=== PATIENT | male | born 1955 | race African-American/Black ===

== ENCOUNTER 2017-03-31 12:31 | Outpatient (CLI) | payer OTHER ==
--- NOTE | 2017-03-31 14:52 | RAD ---
PA AND LATERAL CHEST: Date: 03/31/17 INDICATION: History of dyspnea. COMPARISON: Prior single view of the chest dated 10/05/12. FINDINGS: There is stable cardiomegaly. There is increased opacity seen adjacent to the left heart border withi n the region of the lingula which was not present on the prior examination. This is not definitely lo calized on the lateral projection and likely reflects chondrocalcinosis involving the left anterolate ral 6th rib. There is a dual lead AICD overlying the right chest wall. The right lung is clear. There is multilevel spondylosis of the thoracic spine. IMPRESSION: 1. Accentuated density adjacent to the left heart apex on the PA projection only without correlation on the lateral projection, suspicious for chondrocalcinosis of the left anterolateral 6th rib. 2. Stable cardiomegaly with AICD. POS: OSMANI
== END 2017-03-31 12:32 | disposition home or self-care (01) ==
LOC: RAD 12:31
PROVIDERS: ATTEND Internal Medicine Pulmonary Disease
DX: R06.00 Dyspnea, unspecified (principal); I51.7 Cardiomegaly
CPT/HCPCS: 71020

== ENCOUNTER 2017-04-21 19:30 | Outpatient (CLI) | payer OTHER | END 2017-04-21 19:31 | disposition home or self-care (01) | LOC: SLEEPLAB 19:30 | PROVIDERS: ATTEND Internal Medicine Pulmonary Disease | DX: G47.33 Obstructive sleep apnea (adult) (pediatric) (principal); E66.9 Obesity, unspecified; R06.83 Snoring | CPT/HCPCS: 95811 ==

== ENCOUNTER 2017-07-07 16:58 | Observation (INO) | payer OTHER ==
[2017-07-07 18:21] LABS: #Basophils 0.1 thou/uL (0.0-0.2); #Eosinphils 0.2 thou/uL (0.0-0.7); #Lymphocytes 2.7 thou/uL (1.20-3.40); #Monocytes 0.6 thou/uL (0.11-0.59); #Neutrophils 4.1 thou/uL (1.40-6.50); %Basophils 0.7 % (0.0-1.0); %Eosinophils 3.1 % (0.0-10.0); %Lymphocytes 35.6 % (21.0-51.0); %Neutrophils 52.6 % (42.0-75.0); Hemoglobin 15.2 g/dL (14.0-18.0); Mean Corpuscular HGB CONC 32.7 g/dL (32.0-36.0); Mean Corpuscular Hemoglobin 30.9 pg (27.0-31.0); Mean Corpuscular Volume 94.6 fl (80.0-94.0); Mean Platelet Volume 6.1 fL (7.4-10.4); Platelet Count 335 thou/uL (130-400); Red Blood Cell (RBC) Count 4.93 mill/uL (4.70-6.10); White Blood Cell (WBC) Count 7.7 thou/uL (4.8-10.8)
[2017-07-07 18:52] LABS: ALT (SGPT) 16 U/L (8-55); AST (SGOT) 14 U/L (5-34); Albumin 4.4 g/dL (3.5-5.0); Alkaline Phosphatase 61 U/L (40-150); Anion Gap 14 mmol/L (10-20); BUN (Urea Nitrogen) 13 mg/dL (8.4-25.7); Bilirubin, Total 0.4 mg/dL (0.2-1.2); CK (CPK) 145 U/L (30-200); Calc. Creatinine Clearance 0 mL/min (70-130); Calcium 10.2 mg/dL (7.8-10.44); Carbon Dioxide 27 mmol/L (22-29); Chloride 102 mmol/L (98-107); Estimated GFR-MDRD 66; Globulin 4.3 g/dL (2.4-3.5); Glucose 127 mg/dL (70-105); Potassium 3.8 mmol/L (3.5-5.1); Protein, Total 8.7 g/dL (6.0-8.3); Sodium 139 mmol/L (136-145)
[2017-07-07 18:54] LABS: CKMB 2.8 ng/mL (0-6.6); Troponin I 0.026 ng/mL (< 0.028)
[2017-07-07] MEDS ORDERED: hydrALAZINE 25 MG TAB ONE (21:52)
--- NOTE | 2017-07-07 22:38 | RAD ---
RADIOGRAPH CHEST 1 VIEW: DATE: 07/07/17 TIME: 9:30 p.m. HISTORY: 61-year-old male with hypertension and chest pain. FINDINGS: There is no air space density, pulmonary edema, or pneumothorax. The lateral costophrenic angles are sharp. There is a left subclavian AICD. There is no interval change since 03/31/17. IMPRESSION: 1. No acute pulmonary findings. 2. Automatic implantable cardioverter defibrillator. mira [] POS: OSMANI
[2017-07-07 23:57] LABS: Troponin I 0.028 ng/mL (< 0.028)
[2017-07-08] MEDS ORDERED: Furosemide 40 MG TAB PO SCH (00:22)
[2017-07-08] MEDS ORDERED: hydrALAZINE 25 MG TAB PO SCH (00:22)
[2017-07-08] MEDS ORDERED: HYDROcodone/Acetaminophen 10/325 mg Tablet PO PRN (00:22)
[2017-07-08] MEDS ORDERED: hydrALAZINE 20 MG/ML VIAL SLOW IVP PRN (00:22)
[2017-07-08] MEDS ORDERED: NIFEdipine 10 MG CAP PO SCH (00:22)
[2017-07-08] MEDS ORDERED: Ondansetron ODT 4 MG TAB PO PRN (00:22)
[2017-07-08] MEDS ORDERED: HYDROcodone/Acetaminophen 5/325 mg Tablet PO PRN (00:22)
[2017-07-08] MEDS ORDERED: Acetaminophen 325 MG TAB PO PRN (00:22)
[2017-07-08] MEDS ORDERED: Enoxaparin Sodium 40 MG/0.4 ML SYRINGE SC SCH (00:22)
[2017-07-08 01:21] LABS: CKMB 2.6 ng/mL (0-6.6); Troponin I 0.036 ng/mL (< 0.028)
--- NOTE | 2017-07-08 01:45 | HP ---
DATE OF ADMISSION: 07/07/2017 ELIANA OF SERVICE: 2315 hours. PRIMARY CARE PHYSICIAN: Татьяна Huang D.O. PRIMARY PAVING INSPECTOR: Ranjit Jhaveri M.D. PRIMARY CROWN IRONER OPERATOR: Gume Marie M.D. CHIEF COMPLAINT: Elevated blood pressure. HISTORY OF PRESENT ILLNESS: Mr. Abad a 61-year-old -[place] male with history of coronary artery disease with ID in the past, diabetes mellitus type 2, hypertension, and chronic kidney disea se [address] Jhaveri who presents to the emergency department for elevated blood pressure. The patient has had elevated blood pressure for a couple of weeks. As he saw his rivet heater gas, Dr. Dina rodríguez a day or two ago and when he commented that his blood pressure needed to be under better control, medicines were adjusted. He was started on losartan and hydrochlorothiazide was stopped, he was sta rted hydralazine and continued other medications. Today, his blood pressure remained in the 190s to 200s. He went to a local store and had rechecked it was over 200, so he decided to come to the emerg ency department for evaluation. Here, his blood pressure was confirmed. He was given a single dose of 25 mg of hydralazine with abou t a 20 point decrease in his overall blood pressure. This was short lasting and his blood pressure w ent back up. His labs came back fairly normal. Initial set of biomarkers showed a troponin of 0.026 and CK-MB of 2.8. The PATRICIO felt that there was some lateral ST depression and so we were subsequentl y called for admission. On my arrival, the patient had absolutely no chest pain. We talked about plans and plan to keep him overnight for blood pressure control and he was amenable. He denies any nausea or vomiting, no diarr hea or constipation, no fevers or chills, no cough or sputum production. He states he has been compl iant with his current medication regimen. PAST MEDICAL HISTORY: 1. Coronary artery disease. 2. History of myocardial infarction in the past. 3. Diabetes mellitus type 2. 4. Hypertension. 5. Chronic kidney disease 3. PAST SURGICAL HISTORY: 1. PTCA with PCI and stent in the past. 2. AICD placement. I do not know what his last ejection fraction was. HOME MEDICATIONS: 1. Coreg 25 mg p.o. b.i.d. 2. Glipizide 10 mg p.o. b.i.d. 3. Lasix 20 mg daily. 4. Metformin 1000 mg p.o. b.i.d. These are based upon labels he keeps in his wallet and also he is on hydralazine, he takes 25 mg p.o. t.i.d. and takes losartan 25 mg p.o. t.i.d. as well. Typically i t was started as a once a day medicine. ALLERGIES: NKDA. FAMILY HISTORY: Negative for clotting or bleeding disorder. No immune dysfunction. It is significa nt for hypertension, diabetes or heart problems. SOCIAL HISTORY: Significant for weekly social alcohol at the tone of 1-2 glasses. He currently smok es about 1/4 pack per day of cigarettes, but on average smoked about 1.5 pack per day for about 60 ye ars. Denies any IV drug use. REVIEW OF SYSTEMS: A 10-point review of systems was performed. It is negative for all systems excep t as stated as per HPI. PHYSICAL EXAMINATION: VITAL SIGNS: He is afebrile, temperature is 97.8, pulse 79, blood pressure 198/105, respiratory rate 12, satting 96% to 97% on room air. GENERAL: He is awake. He is alert. He is oriented x3. He is a well-developed, well-nourished, old er -[place] male. He appears to be in no acute distress. HEENT: Normocephalic and atraumatic. His pupils equal, round, reactive bilaterally, mucous membrane s are moist. There are no visible lesions. He has no thrush. NECK: Supple, with no lymphadenopathy, no JVD or thyromegaly. Normal carotid upstroke. I do not ap preciate bruits. LUNGS: Clear. He has good air movement. Symmetrical chest excursion. No wheezing, no rales, no rh onchi. CARDIOVASCULAR: He has a normal S1 and S2. He does have an S4, but no S3. I do not appreciate any murmurs. PMI is slightly enlarged and laterally displaced. ABDOMEN: Slightly obese. It is nontender and nondistended. Normoactive bowel sounds present in all 4 quadrants. He has no rebound, no rigidity and no guarding. EXTREMITIES: Showed no cyanosis, no clubbing with trace pedal edema. He has got a 2+ dorsalis pedis and posterior tibial artery pulses. SKIN: Warm, moist, and well perfused. He has no rashes or lesions. MUSCULOSKELETAL: Shows large joints to be uninflamed. He has good range of motion and no palpable e ffusions. NEUROLOGIC: Cranial nerves II-XII are grossly intact. He has normal speech pattern, he has a 5/5 st rength in all 4 of his extremities, he has no focal deficits. LABORATORY EVALUATION: Sodium 139, potassium 3.8, chloride 102, bicarbonate 27, BUN 13, creatinine 1 .33, last we had here was 05/28/2017 with a creatinine of 1.88 and in 02/2017 it was 1.41. He is act ually as good as he has been in the last couple of years. Glucose 127 and calcium was 10.2. Liver f unction is completely within normal limits. CBC showed a white count of 7.7, hemoglobin 15.2, hemato crit of 46.6, and platelet count is 335,000. Biomarkers showed a BNP of 240.8, CK-MB of 2.8 and trop onin I 0.026. EKG showed normal J point. He has inverted T waves likely repolarization changes. He has got old Q- waves present in the inferior lateral leads. EKG largely appears unchanged from previous. ASSESSMENT AND PLAN: 1. Hypertensive urgency. The patient does have elevated blood pressure. He has no end organ effect s, no chest pain, no change in mental status, just has accelerated hypertension. We will continue hi s Coreg 25 b.i.d., we will continue his Lasix, but increased to 40 mg daily give a dose now. We will continue him on hydralazine, but increased to 50 mg p.o. t.i.d. with a dose now and we will continue losartan 100 mg p.o. daily. Start him on nifedipine XR 60 mg daily, we will give him a 20 mg dose o f regular now that should wear off before his next dose is due and we will start him on Imdur 60 mg d aily. In the meantime, we will continue him on nitro paste 1 inch to chest wall, changed to every 8 hours until his blood pressure under better control. P.r.n. hydralazine available if it gets above 1 80 daily systolic again. 2. Chronic kidney disease stage 3. Creatinine 1.33, which is actually the best has been some time. We will notify Dr. Jhaveri of his admission. 3. History of coronary artery disease/myocardial infraction. He has no chest pain, normal biomarker s. We will get serial cardiac biomarkers and continue with medicines as above. We will notify Dr. Aura kulkarni of his admission. 4. Diabetes mellitus type 2 on metformin. We will check hemoglobin A1c in the morning and sliding s pat insulin as needed. The patient was placed in observation, watch him overnight. We will get a 2D echocardiogram and he h as not had one here in some time and likely does have some hypertrophic cardiomyopathy and diastolic dysfunction.
[2017-07-08 04:33] LABS: #Eosinphils 0.3 thou/uL (0.0-0.7); #Lymphocytes 2.5 thou/uL (1.20-3.40); #Monocytes 0.6 thou/uL (0.11-0.59); #Neutrophils 3.8 thou/uL (1.40-6.50); %Basophils 0.7 % (0.0-1.0); %Eosinophils 3.7 % (0.0-10.0); %Lymphocytes 34.8 % (21.0-51.0); %Monocytes 8.7 % (0.0-10.0); %Neutrophils 52.2 % (42.0-75.0); Hemoglobin 13.5 g/dL (14.0-18.0); Mean Corpuscular HGB CONC 33.7 g/dL (32.0-36.0); Mean Corpuscular Hemoglobin 31.5 pg (27.0-31.0); Mean Corpuscular Volume 93.6 fl (80.0-94.0); Mean Platelet Volume 6.4 fL (7.4-10.4); Platelet Count 279 thou/uL (130-400); RBC Distribution Width 11.8 % (11.5-14.5); Red Blood Cell (RBC) Count 4.29 mill/uL (4.70-6.10); White Blood Cell (WBC) Count 7.3 thou/uL (4.8-10.8)
[2017-07-08 04:59] LABS: Anion Gap 10 mmol/L (10-20); BUN (Urea Nitrogen) 12 mg/dL (8.4-25.7); Calc. Creatinine Clearance 80 mL/min (70-130); Calcium 9.6 mg/dL (7.8-10.44); Carbon Dioxide 28 mmol/L (22-29); Chloride 102 mmol/L (98-107); Estimated GFR-MDRD 65; Glucose 257 mg/dL (70-105); Magnesium 1.5 mg/dL (1.6-2.6); Potassium 3.3 mmol/L (3.5-5.1); Sodium 137 mmol/L (136-145)
[2017-07-08] MEDS: Nitroglycerin 2% Ointment 1 INCH/1 GM Packet TOP SCH ×3 (06:29→20:22)
--- NOTE | 2017-07-08 08:56 | PDOC.PN ---
- Subjective Encounter Start Date: 07/08/17 Encounter Start Time: 08:55 Subjective: seen and examined no new complaint - Objective Resuscitation Status: Resuscitation Status FULL:Full Resuscitation Vital Signs & Weight: Vital Signs (12 hours) Temp Pulse Resp BP BP Pulse Ox 07/08/17 08:05 98.4 F 71 18 154/88 H 97 07/08/17 02:10 89 18 145/100 H 07/08/17 01:08 186/89 H 07/08/17 00:39 207/100 H 07/08/17 00:08 98.3 F 76 18 219/104 H 95 Weight Weight 217 lb 3.2 oz Result Diagrams: 07/08/17 03:49 07/08/17 03:49 Phys Exam - Physical Examination Constitutional: NAD HEENT: PERRLA, moist MMs, sclera anicteric, TM's clear Neck: no nodes, no JVD, supple, full ROM Respiratory: no wheezing, no rales, no rhonchi, clear to auscultation bilateral Cardiovascular: RRR, no significant murmur, no rub Gastrointestinal: soft, non-tender, no distention, positive bowel sounds Musculoskeletal: no edema, pulses present Dx/Plan (1) Hypertensive urgency Code(s): I16.0 - HYPERTENSIVE URGENCY Status: Acute (2) CKD (chronic kidney disease) stage 3, GFR 30-59 ml/min Code(s): N18.3 - CHRONIC KIDNEY DISEASE, STAGE 3 (MODERATE) Status: Acute (3) Diabetes 1.5, managed as type 2 Code(s): E10.9 - TYPE 1 DIABETES MELLITUS WITHOUT COMPLICATIONS Status: Acute - Plan Adjusting Bp meds to optimise hemodynamics -: Dispo planning * .
[2017-07-08] MEDS: hydrALAZINE 25 MG TAB PO SCH ×3 (09:11→20:22)
[2017-07-08] MEDS: Famotidine 20 MG TAB PO SCH ×2 (09:12→20:22)
[2017-07-08] MEDS: Furosemide 40 MG TAB PO SCH (09:12)
[2017-07-08] MEDS: NIFEdipine XL 60 MG TAB PO SCH (09:12)
[2017-07-08] MEDS: Carvedilol 25 MG TAB PO SCH ×2 (09:13→16:53)
[2017-07-08] MEDS: Losartan 25 MG TAB PO SCH (09:13)
[2017-07-08 09:57] LABS: CKMB 2.1 ng/mL (0-6.6); Troponin I 0.021 ng/mL (< 0.028)
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
[2017-07-08] MEDS ORDERED: Insulin Regular 300 UNITS/3 ML VIAL SC PRN ×2 (21:13→21:14)
[2017-07-08] MEDS ORDERED: Dextrose 5% in Water 1,000 ML IV PRN (21:13)
[2017-07-08] MEDS ORDERED: Dextrose 50% Abboject 50 ML SYRINGE IVP PRN (21:13)
[2017-07-08] MEDS ORDERED: metFORMIN 500 MG TAB PO SCH (21:15)
--- NOTE | 2017-07-08 21:29 | CON ---
DATE OF CONSULTATION: 07/08/2017 NEPHROLOGY CONSULT CONSULTING PHYSICIAN: Dr. Gonsalves. REASON FOR CONSULT: Hypertension. REASON FOR ADMISSION: Headache. HISTORY OF PRESENT ILLNESS: A 61-year-old male with history of coronary artery disease, diabetes, CK D, hypertension came to the hospital with headache and was found to have high blood pressure and Neph rology is consulted. Patient was recently started on medication by Dr. Jhaveri. No fever or chills. N o nausea, vomiting, no chest pain. PAST MEDICAL HISTORY: Positive for coronary artery disease, myocardial infarction, type 2 diabetes, hypertension, CKD as above. SOCIAL HISTORY: PTCA, AICD placement. HOME MEDICATIONS: Coreg, glipizide, Lasix, metformin. ALLERGIES: No known drug allergies. FAMILY HISTORY: No history of kidney disease. REVIEW OF SYSTEMS: The following complete review of systems was negative, unless otherwise mentioned in the HPI or below: Constitutional: Weight loss or gain, ability to conduct usual activities. Sk in: Rash, itching. Eyes: Double vision, pain. ENT/Mouth: Nose bleeding, neck stiffness, pain, te nderness. Cardiovascular: Palpitations, dyspnea on exertion, orthopnea. Respiratory: Shortness of breath, wheezing, cough, hemoptysis, fever, or night sweats. Gastrointestinal: Poor appetite, abdo eryn pain, heartburn, nausea, vomiting, constipation, or diarrhea. Genitourinary: Urgency, frequen cy, dysuria, nocturia. Musculoskeletal: Pain, swelling. Neurologic/Psychiatric: Anxiety, depressi on. Allergy/Immunologic: Skin rash, bleeding tendency. SOCIAL HISTORY: He currently smokes. No illicit drug abuse and also social alcohol drinker. PHYSICAL EXAMINATION: GENERAL: Show well-built male in no apparent distress. VITAL SIGNS: Temperature 98.6, pulse 77, respirations 16, blood pressure 165/73. HEENT: Atraumatic, normocephalic. Oral mucosa is moist. NECK: Supple, no masses. CARDIOVASCULAR: S1, S2 heard. Rate and rhythm regular. RESPIRATORY: Clear. ABDOMEN: Soft. MUSCULOSKELETAL: 1+ edema. DERMATOLOGIC: No rash. NEUROLOGIC: Alert, awake. PSYCHIATRIC DATA: Normal mood and affect. LABORATORY: Hemoglobin is 13.5. Potassium 3.3, BUN is 12, creatinine is 1.36. ASSESSMENT AND PLAN: 1. Acute kidney injury on chronic kidney disease, most likely secondary to hypertensive urgency. I agree with current medical management. 2. Hypertensive urgency with history of essential hypertension, we will up-titrate medication as nee ded. 3. Edema on Lasix. Monitor potassium. 4. We will continue current medication. We will up-titrate medication as needed, currently on losar matta 100 mg p.o. daily and nifedipine. 5. Anemia, mild. 6. Obesity. Advised to have weight loss. 7. We will monitor blood pressure closely. We will follow.
[2017-07-09] MEDS: Nitroglycerin 2% Ointment 1 INCH/1 GM Packet TOP SCH (05:46)
[2017-07-09 07:34] VITALS: TEMP 98.7
[2017-07-09] MEDS: NIFEdipine XL 60 MG TAB PO SCH (07:53)
[2017-07-09] MEDS: hydrALAZINE 25 MG TAB PO SCH (07:54)
[2017-07-09] MEDS: Famotidine 20 MG TAB PO SCH (07:55)
[2017-07-09] MEDS: Carvedilol 25 MG TAB PO SCH (07:55)
[2017-07-09] MEDS: Furosemide 40 MG TAB PO SCH (07:55)
[2017-07-09] MEDS: Losartan 25 MG TAB PO SCH (07:55)
[2017-07-09] MEDS ORDERED: metFORMIN 500 MG TAB PO SCH (08:00)
[2017-07-09 10:27] VITALS: BP 134/81
[2017-07-09] MEDS ORDERED: Potassium Chloride 20 MEQ TAB PO SCH (11:30)
--- NOTE | 2017-07-09 19:35 | PRG ---
DATE OF SERVICE: 07/09/2017 SUBJECTIVE: Patient was seen and examined at bedside and overnight events noted. Patient denies any shortness of breath or chest pain or palpitation. No history of nausea or vomitin g or diarrhea or fever or chills or cramps. OBJECTIVE: GENERAL: This is a well-built male, in no apparent distress. VITAL SIGNS: Temperature 98.7, pulse 70, respiratory rate 19, blood pressure 134/81. HEENT: Atraumatic, normocephalic. Oral mucosa is moist NECK: Supple. CARDIOVASCULAR: S1 and S2 heard. Rate and rhythm regular. RESPIRATORY: Clear to auscultation. GASTROINTESTINAL: Abdomen is soft. MUSCULOSKELETAL: No tenderness. No edema. DERMATOLOGIC: No skin rash. NEUROLOGIC: Alert and awake and oriented X3, No focal neurologic deficits. Moving all the extremitie s. PSYCHIATRIC: Mood and affect normal. LABORATORY DATA: Not done today. ASSESSMENT AND PLAN: 1. Acute kidney injury, stable. 2. Chronic kidney disease stage 3. 3. Hypertension. Blood pressure is better. 4. Edema, controlled. 5. Anemia. 6. Obesity. Okay to discharge home. Follow up with Dr. Jhaveri in 1 week.
--- NOTE | 2017-07-10 08:07 | DIS ---
For details of the history and physical and for the consult notes, please refer to dictations on [address]. SUMMARY: A 61-year-old gentleman with a history of hypertension and CKD III, who presented here with severely elevated blood pressure with systolic above 200. The patient was admitted and consulted up on by his box tender as well as manager [employer]. Decision was taken to adjust this patient's antihype rtensive medication with improvement in the hemodynamics. PHYSICAL EXAMINATION: VITAL SIGNS: On the day of discharge, the patient was noted with the following vital signs: Afebril e, temperature 98.7, pulse 78, respiratory rate of 19, blood pressure 134/81, O2 sat 97%. HEENT: Unremarkable. The rest of the system examination is unremarkable. The patient was subsequently discharged home on the following medications: Eliquis 5 mg p.o. b.i.d., Lipitor 40 mg p.o. at bedtime, Coreg 25 mg p.o. b.i.d., digoxin mg 1 tablet p.o. daily, furose mide 20 mg p.o. daily, glipizide 10 mg p.o. daily, hydralazine 50 mg p.o. t.i.d., losartan 100 mg p.o . daily, metformin 1000 mg p.o. b.i.d., Procardia XL 60 mg p.o. daily. DISCHARGE INSTRUCTIONS: 1. The patient is to follow up with the primary care physician. 2. The patient is to re-present here in case of any relapse or deterioration in clinical condition. Total time spent including [id number] encounter is 31 minutes.
== END 2017-07-09 13:41 | disposition home or self-care (01) ==
LOC: ERS 16:58 → 2SW 07-08 00:02
PROVIDERS: ADMIT Internal Medicine Infectious Disease; ATTEND Internal Medicine Infectious Disease
DX: I16.0 Hypertensive urgency (principal); I12.9 Hypertensive chronic kidney disease with stage 1 through stage 4 chronic kidney disease, or unspecified chronic kidney disease; E11.22 Type 2 diabetes mellitus with diabetic chronic kidney disease; N18.3 Chronic kidney disease, stage 3 (moderate); N17.9 Acute kidney failure, unspecified; I16.9 Hypertensive crisis, unspecified; D63.1 Anemia in chronic kidney disease; I25.10 Atherosclerotic heart disease of native coronary artery without angina pectoris; I25.2 Old myocardial infarction; F17.210 Nicotine dependence, cigarettes, uncomplicated; E66.9 Obesity, unspecified; Z68.34 Body mass index [BMI] 34.0-34.9, adult; E78.00 Pure hypercholesterolemia, unspecified; G47.33 Obstructive sleep apnea (adult) (pediatric); Z95.5 Presence of coronary angioplasty implant and graft; Z95.0 Presence of cardiac pacemaker; Z79.01 Long term (current) use of anticoagulants; Z79.84 Long term (current) use of oral hypoglycemic drugs; Z79.899 Other long term (current) drug therapy
CPT/HCPCS: 36415; 36416; 71045; 80048; 80053; 82553; 83735; 83880; 84484; 85025; 93005; 93306; 96372; G0378; J1650

== ENCOUNTER 2017-08-18 19:42 | Emergency (ER) | payer OTHER | END 2017-08-18 22:26 | disposition home or self-care (01) | LOC: ERS 19:42 | DX: I10 Essential (primary) hypertension (principal); I25.10 Atherosclerotic heart disease of native coronary artery without angina pectoris; E11.9 Type 2 diabetes mellitus without complications; F17.210 Nicotine dependence, cigarettes, uncomplicated; I25.2 Old myocardial infarction; Z79.899 Other long term (current) drug therapy; Z79.84 Long term (current) use of oral hypoglycemic drugs; Z71.6 Tobacco abuse counseling | CPT/HCPCS: 99406 ==

== ENCOUNTER 2017-08-23 23:38 | Emergency (ER) | payer OTHER ==
[2017-08-24] MEDS ORDERED: Nitroglycerin 0.4 MG TAB (25 Tab Bottle) ONE (00:25)
== END 2017-08-24 01:45 | disposition home or self-care (01) ==
LOC: ERS 23:38
DX: I10 Essential (primary) hypertension (principal); I25.10 Atherosclerotic heart disease of native coronary artery without angina pectoris; I25.2 Old myocardial infarction; E11.9 Type 2 diabetes mellitus without complications; F17.210 Nicotine dependence, cigarettes, uncomplicated; Z71.6 Tobacco abuse counseling; Z79.84 Long term (current) use of oral hypoglycemic drugs; Z79.899 Other long term (current) drug therapy

== ENCOUNTER 2017-08-24 17:08 | Emergency (ER) | payer OTHER ==
[2017-08-24 18:27] LABS: #Eosinphils 0.3 thou/uL (0.0-0.7); #Lymphocytes 1.9 thou/uL (1.20-3.40); #Monocytes 0.8 thou/uL (0.11-0.59); #Neutrophils 3.6 thou/uL (1.40-6.50); %Basophils 0.7 % (0.0-1.0); %Eosinophils 4.1 % (0.0-10.0); %Lymphocytes 28.4 % (21.0-51.0); %Neutrophils 54.8 % (42.0-75.0); Hemoglobin 12.7 g/dL (14.0-18.0); Mean Corpuscular HGB CONC 33.1 g/dL (32.0-36.0); Mean Corpuscular Hemoglobin 31.2 pg (27.0-31.0); Mean Corpuscular Volume 94.2 fl (80.0-94.0); Mean Platelet Volume 6.4 fL (7.4-10.4); Platelet Count 302 thou/uL (130-400); RBC Distribution Width 12.1 % (11.5-14.5); Red Blood Cell (RBC) Count 4.07 mill/uL (4.70-6.10); White Blood Cell (WBC) Count 6.6 thou/uL (4.8-10.8)
[2017-08-24] MEDS ORDERED: Nitroglycerin 2% Ointment 1 INCH/1 GM Packet ONE (18:41)
[2017-08-24 18:47] LABS: Anion Gap 13 mmol/L (10-20); BUN (Urea Nitrogen) 15 mg/dL (8.4-25.7); Calc. Creatinine Clearance 0 mL/min (70-130); Calcium 9.5 mg/dL (7.8-10.44); Carbon Dioxide 24 mmol/L (22-29); Chloride 106 mmol/L (98-107); Estimated GFR-MDRD 76; Glucose 181 mg/dL (70-105); Potassium 3.6 mmol/L (3.5-5.1); Sodium 139 mmol/L (136-145)
[2017-08-24 18:54] LABS: CKMB 1.4 ng/mL (0-6.6); Troponin I 0.023 ng/mL (< 0.028)
== END 2017-08-24 20:44 | disposition home or self-care (01) ==
LOC: ERS 17:08
DX: I10 Essential (primary) hypertension (principal); I25.2 Old myocardial infarction; E11.9 Type 2 diabetes mellitus without complications; F17.210 Nicotine dependence, cigarettes, uncomplicated
CPT/HCPCS: 80048; 82553; 84484; 85025; 93005; 99406

== ENCOUNTER 2017-10-31 02:33 | Inpatient (IN) | payer OTHER ==
[2017-10-31 03:42] LABS: #Eosinphils 0.1 thou/uL (0.0-0.7); #Lymphocytes 1.9 thou/uL (1.20-3.40); #Monocytes 1.3 thou/uL (0.11-0.59); #Neutrophils 7.3 thou/uL (1.40-6.50); %Basophils 0.4 % (0.0-1.0); %Eosinophils 1.4 % (0.0-10.0); %Lymphocytes 18.2 % (21.0-51.0); %Monocytes 11.9 % (0.0-10.0); %Neutrophils 68.2 % (42.0-75.0); Hemoglobin 12.8 g/dL (14.0-18.0); Mean Corpuscular HGB CONC 32.1 g/dL (32.0-36.0); Mean Corpuscular Hemoglobin 30.4 pg (27.0-31.0); Mean Corpuscular Volume 94.8 fL (78.0-98.0); Mean Platelet Volume 6.4 fL (7.4-10.4); Platelet Count 305 thou/uL (130-400); RBC Distribution Width 12.2 % (11.5-14.5); Red Blood Cell (RBC) Count 4.22 mill/uL (4.70-6.10); White Blood Cell (WBC) Count 10.6 thou/uL (4.8-10.8)
[2017-10-31] MEDS ORDERED: Nitroglycerin 2% Ointment 1 INCH/1 GM Packet ONE (04:04)
[2017-10-31] MEDS ORDERED: Furosemide 40 MG/4 ML VIAL ONE (04:04)
[2017-10-31] MEDS ORDERED: Nitroglycerin 0.4 MG TAB (25 Tab Bottle) ONE (04:04)
[2017-10-31 04:11] LABS: ALT (SGPT) 17 U/L (8-55); AST (SGOT) 13 U/L (5-34); Albumin 3.7 g/dL (3.4-4.8); Alkaline Phosphatase 54 U/L (40-150); Anion Gap 11 mmol/L (10-20); BUN (Urea Nitrogen) 15 mg/dL (8.4-25.7); Bilirubin, Total 0.5 mg/dL (0.2-1.2); CK (CPK) 93 U/L (30-200); Calc. Creatinine Clearance 0 mL/min (70-130); Calcium 9.4 mg/dL (7.8-10.44); Carbon Dioxide 27 mmol/L (23-31); Chloride 104 mmol/L (98-107); Estimated GFR-MDRD 67; Globulin 3.7 g/dL (2.4-3.5); Glucose 179 mg/dL (80-115); Potassium 4.5 mmol/L (3.5-5.1); Protein, Total 7.4 g/dL (5.8-8.1); Sodium 137 mmol/L (136-145)
[2017-10-31 04:14] LABS: CKMB 1.8 ng/mL (0-6.6); Troponin I Less than 0.010 ng/mL (< 0.028)
[2017-10-31] MEDS ORDERED: Morphine 4 MG/ML VIAL ONE (04:39)
[2017-10-31 06:51] LABS: Troponin I 0.017 ng/mL (< 0.028)
[2017-10-31] MEDS ORDERED: Loperamide HCl 2 MG CAP PO PRN (07:48)
[2017-10-31] MEDS ORDERED: Eucerin (Mineral Oil/Petrolatum,White) 30 gm Jar TOP PRN (07:48)
[2017-10-31] MEDS ORDERED: Diabetic Tussin 200 MG/10 ML UDCUP PO PRN (07:48)
[2017-10-31] MEDS ORDERED: Mag-Al 1200 mg/1200 mg/30 ML UDCUP PO PRN (07:48)
[2017-10-31] MEDS ORDERED: Ondansetron HCl/PF 4 MG/2 ML Vial IVP PRN (07:48)
[2017-10-31] MEDS ORDERED: Loratadine 10 MG TAB PO PRN (07:48)
[2017-10-31] MEDS ORDERED: Milk Of Magnesia 30 ML UDCUP PO PRN (07:48)
[2017-10-31] MEDS ORDERED: HumaLOG 300 UNITS/3 ML VIAL SC PRN (07:48)
[2017-10-31] MEDS ORDERED: Nitroglycerin 0.4 MG TAB (25 Tab Bottle) SL PRN (07:48)
[2017-10-31] MEDS ORDERED: Dextrose 5% in Water 1,000 ML IV PRN (07:48)
[2017-10-31] MEDS ORDERED: Ondansetron ODT 4 MG TAB PO PRN (07:48)
[2017-10-31] MEDS ORDERED: Artificial Tears 18 DROP/0.9 ML EA EYE PRN (07:48)
[2017-10-31] MEDS ORDERED: Dextrose 50% Abboject 50 ML SYRINGE SLOW IVP PRN (07:48)
[2017-10-31] MEDS ORDERED: Zolpidem Tartrate 5 MG TAB PO PRN (07:48)
[2017-10-31] MEDS ORDERED: Sodium Chloride 0.65% Nasal 44 ML BOT EA NARE PRN (07:48)
[2017-10-31] MEDS ORDERED: Chloraseptic Spray 180 ml Bottle PO PRN (07:48)
[2017-10-31] MEDS ORDERED: Senokot 8.6 MG TAB PO PRN (07:48)
[2017-10-31] MEDS ORDERED: Acetaminophen 325 MG TAB PO PRN (07:48)
[2017-10-31] MEDS: hydrALAZINE 20 MG/ML VIAL SLOW IVP PRN ×2 (09:08→18:05)
[2017-10-31] MEDS: HumaLOG 300 UNITS/3 ML VIAL SC PRN ×3 (09:09→18:05)
[2017-10-31 10:00] LABS: Troponin I 0.012 ng/mL (< 0.028)
--- NOTE | 2017-10-31 10:14 | RAD ---
PORTABLE CHEST: Date: 10/31/17 PROVIDED CLINICAL HISTORY: Shortness of breath. FINDINGS: Comparison with 07/07/17. Cardiac and mediastinal silhouette is unchanged in appearance. Left subclavian cardiac pacing devices are demonstrated and similar in position. Air space disease in the left lower lung zone is seen. No pleural fluid or pneumothorax apparent. IMPRESSION: Left lower lung zone air space disease. Correlate with concerns for pneumonia. Follow-up recommended. POS: OSMANI
[2017-10-31 11:05] VITALS: BMI 34.3
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
[2017-10-31 12:32] LABS: Troponin I 0.018 ng/mL (< 0.028)
[2017-10-31] MEDS: Nitroglycerin 2% Ointment 1 INCH/1 GM Packet TOP SCH ×2 (14:25→23:51)
[2017-10-31] MEDS: Furosemide 40 MG/4 ML VIAL SLOW IVP SCH (14:25)
[2017-10-31 16:14] LABS: Troponin I 0.015 ng/mL (< 0.028)
[2017-10-31] MEDS: glipiZIDE 10 MG TAB PO SCH (20:17)
[2017-10-31] MEDS: Carvedilol 25 MG TAB PO SCH (20:17)
[2017-10-31] MEDS: hydrALAZINE 25 MG TAB PO SCH (20:17)
[2017-10-31] MEDS: Apixaban 5 MG TAB PO SCH (20:17)
[2017-10-31] MEDS: cloNIDine 0.1 MG TAB PO SCH (20:18)
[2017-10-31] MEDS: Atorvastatin Calcium 40 MG TAB PO SCH (20:18)
[2017-11-01] MEDS: Furosemide 40 MG/4 ML VIAL SLOW IVP SCH ×2 (05:18→16:36)
[2017-11-01] MEDS: HYDROcodone/Acetaminophen 5/325 mg Tablet PO PRN ×2 (05:18→21:31)
[2017-11-01] MEDS: Nitroglycerin 2% Ointment 1 INCH/1 GM Packet TOP SCH ×3 (05:19→21:33)
[2017-11-01 05:51] LABS: #Eosinphils 0.2 thou/uL (0.0-0.7); #Lymphocytes 2.1 thou/uL (1.20-3.40); #Monocytes 1.1 thou/uL (0.11-0.59); #Neutrophils 5.4 thou/uL (1.40-6.50); %Basophils 0.2 % (0.0-1.0); %Eosinophils 1.8 % (0.0-10.0); %Lymphocytes 23.7 % (21.0-51.0); %Monocytes 13.1 % (0.0-10.0); %Neutrophils 61.2 % (42.0-75.0); Hemoglobin 12.7 g/dL (14.0-18.0); Mean Corpuscular HGB CONC 33.4 g/dL (32.0-36.0); Mean Corpuscular Hemoglobin 31.3 pg (27.0-31.0); Mean Corpuscular Volume 93.7 fL (78.0-98.0); Mean Platelet Volume 6.4 fL (7.4-10.4); Platelet Count 277 thou/uL (130-400); Red Blood Cell (RBC) Count 4.07 mill/uL (4.70-6.10); White Blood Cell (WBC) Count 8.7 thou/uL (4.8-10.8)
[2017-11-01 06:01] LABS: Anion Gap 11 mmol/L (10-20); BUN (Urea Nitrogen) 14 mg/dL (8.4-25.7); Calc. Creatinine Clearance 85 mL/min (70-130); Calcium 9.3 mg/dL (7.8-10.44); Carbon Dioxide 27 mmol/L (23-31); Chloride 104 mmol/L (98-107); Estimated GFR-MDRD 74; Glucose 162 mg/dL (80-115); Magnesium 1.8 mg/dL (1.6-2.6); Potassium 3.5 mmol/L (3.5-5.1); Sodium 138 mmol/L (136-145); Uric Acid 5.5 mg/dL (3.5-7.2)
[2017-11-01] MEDS ORDERED: Losartan 25 MG TAB PO SCH (09:00)
[2017-11-01] MEDS: cloNIDine 0.1 MG TAB PO SCH ×2 (09:38→21:31)
[2017-11-01] MEDS: hydrALAZINE 25 MG TAB PO SCH ×3 (09:39→21:30)
[2017-11-01] MEDS: Apixaban 5 MG TAB PO SCH ×2 (09:39→21:31)
[2017-11-01] MEDS: Carvedilol 25 MG TAB PO SCH ×2 (09:39→21:31)
[2017-11-01] MEDS: metFORMIN 500 MG TAB PO SCH ×2 (09:39→16:36)
[2017-11-01] MEDS: Digoxin 0.125 MG TAB PO SCH (09:39)
[2017-11-01] MEDS: glipiZIDE 10 MG TAB PO SCH ×2 (09:40→21:30)
--- NOTE | 2017-11-01 11:15 | PDOC.PN ---
- Subjective Encounter Start Date: 11/01/17 Encounter Start Time: 09:10 -: old records requested/rev Patient seen and examined. No new complaints. No overnight events, feels better today - Objective Resuscitation Status: Resuscitation Status FULL:Full Resuscitation MAR Reviewed: Yes Vital Signs & Weight: Vital Signs (12 hours) Temp Pulse Pulse Pulse Resp BP BP 11/01/17 09:39 74 11/01/17 09:38 179/98 H 11/01/17 09:30 78 74 197/96 H 11/01/17 08:25 97.7 F 74 20 11/01/17 05:15 98.4 F 80 16 10/31/17 23:50 98.4 F 64 16 BP BP Pulse Ox Pulse Ox Pulse Ox 11/01/17 09:39 11/01/17 09:38 11/01/17 09:30 204/95 H 100 97 11/01/17 08:25 179/98 H 97 11/01/17 05:15 173/87 H 93 L 10/31/17 23:50 158/74 H 96 Weight Weight 207 lb 1 oz I&O: 10/31/17 11/01/17 11/02/17 06:59 06:59 06:59 Intake Total 858 Output Total 4725 Balance -3867 Result Diagrams: 11/01/17 05:13 11/01/17 05:13 Additional Labs: Accuchecks 11/01/17 10/31/17 10/31/17 10:46 20:56 16:45 POC Glucose 190 H 197 H 169 H 10/31/17 10:57 POC Glucose 161 H EKG Reviewed by me: Yes Phys Exam - Physical Examination Constitutional: NAD HEENT: PERRLA, moist MMs, sclera anicteric Neck: no JVD, supple Respiratory: no wheezing, no rhonchi few basal rales+ Cardiovascular: RRR, no significant murmur, no rub Gastrointestinal: soft, non-tender, no distention, positive bowel sounds obesity+ Musculoskeletal: pulses present, edema present trace edema Neurological: non-focal, normal sensation, moves all 4 limbs Psychiatric: normal affect, A&O x 3 Skin: no rash, normal turgor Dx/Plan (1) Acute on chronic systolic ACC/AHA stage C congestive heart failure Code(s): I50.23 - ACUTE ON CHRONIC SYSTOLIC (CONGESTIVE) HEART FAILURE Status : Acute (2) Hypertensive urgency Code(s): I16.0 - HYPERTENSIVE URGENCY Status: Acute (3) CAD (coronary artery disease) Code(s): I25.10 - ATHSCL HEART DISEASE OF [place] CORONARY ARTERY W/O ANG PCTRS Status: Chronic (4) Chronic anticoagulation Code(s): Z79.01 - RN REHABILITATION (CURRENT) USE OF ANTICOAGULANTS Status: Chronic (5) Diabetes type 2, controlled Code(s): E11.9 - TYPE 2 DIABETES MELLITUS WITHOUT COMPLICATIONS Status: Chronic (6) Dyslipidemia Code(s): E78.5 - HYPERLIPIDEMIA, UNSPECIFIED Status: Chronic (7) Obesity (BMI 30.0-34.9) Code(s): E66.9 - OBESITY, UNSPECIFIED Status: Chronic (8) Tobacco abuse Code(s): Z72.0 - TOBACCO USE Status: Chronic - Plan cont current plan of care, plan discussed w/ family * medication reviewed as below * symptomatic treatment * continue one more day lasix * expecting discharge tomorrow * heart failure education given. Review of Systems - Review of Systems Eyes: negative: Pain, Vision Change, Conjunctivae Inflammation, Eyelid Inflammation, Redness, Other ENT: negative: Ear Pain, Ear Discharge, Nose Pain, Nose Discharge, Nose Congestion, Mouth Pain, Mouth Swelling, Throat Pain, Throat Swelling, Other Respiratory: negative: Cough, Dry, Shortness of Breath, Hemoptysis, SOB with Excertion, Pleuritic Pain, Sputum, Wheezing Cardiovascular: negative: chest pain, palpitations, orthopnea, paroxysmal nocturnal dyspnea, edema, light headedness, other Gastrointestinal: negative: Nausea, Vomiting, Abdominal Pain, Diarrhea, Constipation, Melena, Hematochezia, Other Genitourinary: negative: Dysuria, Frequency, Incontinence, Hematuria, Retention , Other Musculoskeletal: negative: Neck Pain, Shoulder Pain, Arm Pain, Back Pain, Hand Pain, Leg Pain, Foot Pain, Other Skin: negative: Rash, Lesions, Kermit, Bruising, Other - Medications/Allergies Allergies/Adverse Reactions: Allergies Allergy/AdvReac Type Severity Reaction Status Date / Time No Known Allergies Allergy Verified 07/08/17 01:25 Medications: Current Medications Acetaminophen (Tylenol) 650 mg PO Q4H PRN PRN Reason: Headache/Fever or Pain Hydrocodone Bitart/Acetaminophen (Keldron 5/325) 1 tab PO Q4H PRN PRN Reason: Moderate Pain (4-6) Last Admin: 11/01/17 05:18 Dose: 1 tab Al Hydroxide/Mg Hydroxide (Maalox) 30 ml PO Q6H PRN PRN Reason: Heartburn or Indigestion Albuterol/Ipratropium (Duoneb) 3 ml NEB [id number] PRN PRN Reason: SOB &/or Wheezing Apixaban (Eliquis) 5 mg PO BID [facility] Last Admin: 11/01/17 09:39 Dose: 5 mg Artificial Tears (Tears Naturale) 0 drop EA EYE PRN PRN PRN Reason: Dry Eyes Aspirin (Aspirin Chewable) 81 mg PO DAILY [facility] Last Admin: 11/01/17 09:40 Dose: 81 mg Atorvastatin Calcium (Lipitor) 40 mg PO HS [facility] Last Admin: 10/31/17 20:18 Dose: 40 mg Carvedilol (Coreg) 25 mg PO BID [facility] Last Admin: 11/01/17 09:39 Dose: 25 mg Clonidine (Catapres) 0.1 mg PO BID [facility] Last Admin: 11/01/17 09:38 Dose: 0.1 mg Dextrose/Water (Dextrose 50%) 25 gm SLOW IVP PRN PRN PRN Reason: Hypoglycemia Digoxin (Lanoxin) 0.125 mg PO DAILY [facility] Last Admin: 11/01/17 09:39 Dose: 0.125 mg Furosemide (Lasix) 40 mg SLOW IVP 0600,1400 [facility] Last Admin: 11/01/17 05:18 Dose: 40 mg Glipizide (Glucotrol) 10 mg PO BID [facility] Last Admin: 11/01/17 09:40 Dose: 10 mg Glucagon (Glucagon) 1 mg IM PRN PRN PRN Reason: Hypoglycemia Guaifenesin (Robitussin Sf) 200 mg PO Q4H PRN PRN Reason: Cough Hydralazine HCl (Apresoline) 10 mg SLOW IVP Q4H PRN PRN Reason: Systolic BP > 180 Last Admin: 10/31/17 18:05 Dose: 10 mg Hydralazine HCl (Apresoline) 50 mg PO TID [facility] Last Admin: 11/01/17 09:39 Dose: 50 mg Dextrose/Water (D5w) 1,000 mls @ 0 mls/hr IV .Q0M PRN; As Directed PRN Reason: Hypoglycemia Insulin Human Lispro (Humalog) 0 units SC .MODERATE SLIDING SC PRN PRN Reason: Moderate Correctional Scale Last Admin: 10/31/17 18:05 Dose: 2 unit Insulin Human Lispro (Humalog) 0 units SC .BEDTIME SLIDING SC PRN PRN Reason: Bedtime Correctional Scale Loperamide HCl (Imodium) 2 mg PO PRN PRN PRN Reason: Diarrhea/Loose Stools Loratadine (Claritin) 10 mg PO DAILYPRN PRN PRN Reason: Sinus Symptoms Losartan Potassium (Cozaar) 100 mg PO DAILY [facility] Magnesium Hydroxide (Milk Of Magnesium) 30 ml PO DAILYPRN PRN PRN Reason: Constipation Metformin HCl (Glucophage) 1,000 mg PO BID[facility] Last Admin: 11/01/17 09:39 Dose: 1,000 mg Mineral Oil/White Petrolatum (Eucerin Cream) 0 gm TOP BIDPRN PRN PRN Reason: Dry Skin Nitroglycerin (Nitrostat) 0.4 mg SL Q5MIN PRN PRN Reason: Chest Pain Nitroglycerin (Nitro-Bid 2% Ointment) 0.5 inch TOP Q8HR [facility] Last Admin: 11/01/17 05:19 Dose: 0.5 inch Ondansetron HCl (Zofran Odt) 4 mg PO Q6H PRN PRN Reason: Nausea/Vomiting Ondansetron HCl (Zofran) 4 mg IVP Q6H PRN PRN Reason: Nausea/Vomiting Pantoprazole Sodium (Protonix) 40 mg PO DAILY [facility] Last Admin: 11/01/17 09:40 Dose: 40 mg Phenol (Chloraseptic [place] 180 Ml Bot) 0 ml PO PRN PRN PRN Reason: Sore Throat Senna (Senokot) 2 tab PO HSPRN PRN PRN Reason: Constipation Sodium Chloride ([place] Nasal [place] 0.65%) 0 ml EA NARE QIDPRN PRN PRN Reason: Nasal Congestion Sodium Chloride (Flush - Normal Saline) 10 ml IVF Q12HR [facility] Last Admin: 10/31/17 20:18 Dose: 10 ml Sodium Chloride (Flush - Normal Saline) 10 ml IVF PRN PRN PRN Reason: Saline Flush Zolpidem Tartrate (Ambien) 5 mg PO HSPRN PRN PRN Reason: Insomnia
[2017-11-01] MEDS: Losartan 25 MG TAB PO SCH (16:32)
[2017-11-01] MEDS: Atorvastatin Calcium 40 MG TAB PO SCH (21:30)
[2017-11-02 05:12] LABS: Hemoglobin 13.4 g/dL (14.0-18.0); Platelet Count 297 thou/uL (130-400)
[2017-11-02] MEDS: Furosemide 40 MG/4 ML VIAL SLOW IVP SCH (05:49)
[2017-11-02] MEDS: Nitroglycerin 2% Ointment 1 INCH/1 GM Packet TOP SCH (05:49)
[2017-11-02] MEDS: Apixaban 5 MG TAB PO SCH (09:11)
[2017-11-02] MEDS: cloNIDine 0.1 MG TAB PO SCH (09:11)
[2017-11-02] MEDS: Digoxin 0.125 MG TAB PO SCH (09:19)
[2017-11-02] MEDS: Carvedilol 25 MG TAB PO SCH (09:19)
[2017-11-02] MEDS: hydrALAZINE 25 MG TAB PO SCH (09:19)
[2017-11-02] MEDS: metFORMIN 500 MG TAB PO SCH (09:19)
[2017-11-02] MEDS: Losartan 25 MG TAB PO SCH (09:20)
[2017-11-02] MEDS: glipiZIDE 10 MG TAB PO SCH (09:20)
--- NOTE | 2017-11-02 12:08 | DIS ---
DATE OF ADMISSION: 10/31/2017 DATE OF DISCHARGE: 11/02/2017 PRIMARY CARE PHYSICIAN: Dr. Татьяна Huang. DISCHARGE DISPOSITION: Home. PRIMARY DISCHARGE DIAGNOSES: Acute on chronic systolic congestive heart failure, stage C; hypertensi ve urgency. SECONDARY DISCHARGE DIAGNOSES: Tobacco abuse disorder, obesity with BMI 32, dyslipidemia, diabetes t ype 2, chronic anticoagulation, coronary artery disease. PRIMARY PROCEDURE AND OPERATION: None. RADIOLOGICAL INVESTIGATION: Chest x-ray showed pulmonary vascular congestion. SIGNIFICANT LABORATORY DATA: WBC 8.7, hemoglobin 13.4, platelet 297. Sodium 138, creatinine 1.21, m agnesium 1.8, calcium 9.3. Cardiac enzymes negative. BNP 335.7, lipase 192. DISCHARGE MEDICATIONS: Eliquis 5 mg p.o. b.i.d., Lipitor 40 mg p.o. at bedtime, Coreg 25 mg p.o. b.i .d., clonidine 0.1 mg p.o. b.i.d., digoxin 125 mcg p.o. daily, Pepcid 20 mg p.o. b.i.d., Lasix 40 mg p.o. b.i.d., Glucotrol 10 mg p.o. b.i.d., hydralazine 50 mg p.o. t.i.d., losartan 100 mg p.o. daily, metformin 1000 mg p.o. b.i.d. CONTRAINDICATIONS: None. CODE STATUS: FULL CODE. INPATIENT CONSULTANTS: None. ALLERGIES: No known drug allergy. DISCHARGE PLAN: Post hospital, the patient will follow up with primary care physician. Patient is i nstructed to follow up with Cardiology as well as Heart Failure Clinic. HOSPITAL COURSE: The patient is a 62-year-old male with above-mentioned medical problem who was admi tted by me on 10/31/2017. Please see my HPI for further detail. He presented with lower extremity e malathi, abdominal wall edema and bloating as well as dyspnea on exertion. His clinical presentation wa s consistent with a CHF exacerbation. He has AICD in place and he had chest x-ray, which showed gregory estion. His clinical examination was also consistent with congestion. We [facility] and we treated him with Lasix for diuresis. After starting Lasix, he had significant clinical im provement. While in hospital, I provided the patient about fluid restriction, salt restriction, and heart failure education as well as to be compliant with medication. During this admission, we increa sed Lasix to b.i.d. and the rest of medication was continued as per previous. He had hypertensive ur gency that was also controlled. At this point, the patient is euvolemic and the patient is medically stable for discharge. The patie nt is on room air. He is ambulatory and tolerating p.o. well. The patient is seen and examined at bedside today. REVIEW OF SYSTEMS: Negative. PHYSICAL EXAMINATION: VITAL SIGNS: Currently, blood pressure 151/98, pulse 77, respiratory rate 20, saturation 99% on room air, temperature 97.7, weight 204 pounds. GENERAL: The patient is currently alert, awake, no obvious acute distress. HEAD: Normocephalic, atraumatic. EYES: Pupils round, reactive to light. Extraocular muscle intact. ENT: Oropharynx within normal limits. Moist mucous membrane, no oral lesion, no pharyngeal erythema , no exudate. NECK: Supple, no JVD, no thyromegaly, no carotid bruit. LUNGS: Clear to auscultation without any rhonchi or rales. CARDIAC: S1, S2 regular without any murmur. ABDOMEN: Soft and benign without any tenderness. EXTREMITIES: No edema. NEUROLOGIC: Nonfocal examination. Overall, the patient is medically stable for discharge today.
[2017-11-02] MEDS ORDERED: Furosemide 40 MG/4 ML VIAL SLOW IVP SCH (13:45)
[2017-11-02] MEDS ORDERED: Furosemide 40 MG TAB PO SCH (14:15)
[2017-11-02 14:21] VITALS: BP 124/80; TEMP 97.8
--- NOTE | 2017-11-11 14:30 | EKG ---
Test Reason : HTN Blood Pressure : / mmHG Vent. Rate : 087 BPM Atrial Rate : 087 BPM P-R Int : 158 ms QRS Dur : 106 ms QT Int : 354 ms P-R-T Axes : 092 050 242 degrees QTc Int : 425 ms Normal sinus rhythm Minimal voltage criteria for LVH, may be normal variant Cannot rule out Inferior infarct , age undetermined T wave abnormality, consider lateral ischemia Abnormal ECG No changes from 24-AUG-2017 Confirmed by SUSAN BOWER, TRISTON ([id number]), assignment desk editor EDUARDO URBAN ([id number]) on 11/11/2017 2:30:08 PM Referred By: Confirmed By:TRISTON DAVIS MD
== END 2017-11-02 14:21 | disposition home or self-care (01) | DRG 291 ==
LOC: ERS 02:33 → 2NO 07:44
PROVIDERS: ADMIT Internal Medicine; ATTEND Internal Medicine
DX: I13.0 Hypertensive heart and chronic kidney disease with heart failure and stage 1 through stage 4 chronic kidney disease, or unspecified chronic kidney disease (principal); I50.23 Acute on chronic systolic (congestive) heart failure; Z95.810 Presence of automatic (implantable) cardiac defibrillator; I16.0 Hypertensive urgency; E11.9 Type 2 diabetes mellitus without complications; E78.5 Hyperlipidemia, unspecified; I25.10 Atherosclerotic heart disease of native coronary artery without angina pectoris; G47.33 Obstructive sleep apnea (adult) (pediatric); E66.9 Obesity, unspecified; Z68.34 Body mass index [BMI] 34.0-34.9, adult; F17.210 Nicotine dependence, cigarettes, uncomplicated; Z79.01 Long term (current) use of anticoagulants; N18.3 Chronic kidney disease, stage 3 (moderate)
CPT/HCPCS: 36415; 36416; 71045; 80048; 80053; 82553; 82565; 83690; 83735; 83880; 84484; 84550; 85014; 85018; 85025; 85049; 93005; 93798; 96374; 96375; A4216; J0360; J1940; J2270

== ENCOUNTER 2019-01-27 09:11 | Outpatient (CLI) | payer OTHER ==
--- NOTE | 2019-01-30 11:27 | RAD ---
EXAM: Chest PA and lateral: HISTORY: Preop COMPARISON: 07/06/2018 FINDINGS: Lung cummins are clear. Vascular markings are normal. Lungs show hyperexpansion with flattened diaphra gms. Heart and mediastinum appear unremarkable. AICD leads are unchanged. Osseous structures are unremarkable. IMPRESSION: No acute finding. No interval change apparent.
[2019-01-30 12:22] LABS: #Basophils 0.1 thou/uL (0.0-0.2); #Eosinphils 0.2 thou/uL (0.0-0.7); #Lymphocytes 2.3 thou/uL (1.20-3.40); #Monocytes 0.9 thou/uL (0.11-0.59); #Neutrophils 4.6 thou/uL (1.40-6.50); %Basophils 0.9 % (0.0-1.0); %Eosinophils 2.1 % (0.0-10.0); %Lymphocytes 28.4 % (21.0-51.0); %Monocytes 10.7 % (0.0-10.0); %Neutrophils 57.9 % (42.0-75.0); Hemoglobin 13.5 g/dL (14.0-18.0); Mean Corpuscular HGB CONC 32.5 g/dL (32.0-36.0); Mean Corpuscular Volume 92.4 fL (78.0-98.0); Mean Platelet Volume 6.9 fL (7.4-10.4); Platelet Count 319 thou/uL (130-400); RBC Distribution Width 13.8 % (11.5-14.5); Red Blood Cell (RBC) Count 4.49 mill/uL (4.70-6.10)
[2019-01-30 12:43] LABS: Anion Gap 11 mmol/L (10-20); BUN (Urea Nitrogen) 33 mg/dL (8.4-25.7); Calc. Creatinine Clearance 0 mL/min (70-130); Calcium 9.4 mg/dL (7.8-10.44); Carbon Dioxide 28 mmol/L (23-31); Chloride 105 mmol/L (98-107); Estimated GFR-MDRD 37; Glucose 106 mg/dL (80-115); Potassium 3.7 mmol/L (3.5-5.1); Sodium 140 mmol/L (136-145)
== END 2019-01-27 09:12 | disposition home or self-care (01) ==
LOC: LABBT 09:11
PROVIDERS: ATTEND Specialist
DX: Z01.818 Encounter for other preprocedural examination (principal); K40.20 Bilateral inguinal hernia, without obstruction or gangrene, not specified as recurrent; Z79.01 Long term (current) use of anticoagulants
CPT/HCPCS: 71046; 80048; 85025; 93005; 93010

== ENCOUNTER 2019-02-01 05:51 | Day surgery (SDC) | payer OTHER ==
--- NOTE | 2019-01-26 15:30 | HP ---
HISTORY OF PRESENT ILLNESS: Keith Abad is a 63-year-old male patient, on Eliquis, who has followed up after I initially saw him in June 2018, for bilateral inguinal hernias. At that time, I dictated History and Physical #[id number]. The patient had a cardiopulmonary disability and since followed by Dr. Huang. Since the last visit, the patient has seen Dr. Marie, and the patient has undergone a Cardiolite stress test revealing an old VT in 1993, and is felt to be a [id number] risk for general anesthetic, and he was cleared for surgery. He has a cardiomyopathy, 20% to 25%. He has a fluid restriction. He is seen by Dr. Acosta preoperatively, and medications were adjusted as well as inhalers to address his mucus problem, which has been resolved. The patient is now ready to proceed with robotic laparoscopic bilateral inguinal hernia repairs. He understands risks and benefits and consents. MEDICATIONS: 1. Atorvastatin. 2. Pepcid. 3. Clonidine. 4. Isosorbide. 5. Eliquis. 6. Digoxin. 7. Glipizide. 8. Metformin. 9. Carvedilol. 10. Losartan. 11. Furosemide. 12. Metolazone. 13. Hydralazine. PAST MEDICAL HISTORY: Coronary artery disease, cardiomyopathy, type 2 diabetes mellitus, AICD, and COPD. PAST SURGICAL HISTORY: Defibrillator placed and replaced, Dr. Marie. SOCIAL HISTORY: The patient smokes less than a half a pack per day, and I have told him it is imperative that he not smoke for at least 2 weeks prior to surgery. He is on home oxygen. ALLERGIES: NONE. FAMILY HISTORY: Noncontributory. REVIEW OF SYSTEMS: As above. PHYSICAL EXAMINATION: VITAL SIGNS: Weight 199 pounds, height 66 inches, BMI 32. Blood pressure 189/91, heart rate 72, temperature 98 degrees. HEAD, EARS, EYES, NOSE, AND THROAT: Unremarkable. LUNGS: Clear to auscultation. No wheezing. Prolonged expiration. CARDIAC: Regular rate and rhythm. AICD, left chest. ABDOMEN: Soft and nontender. Bilateral inguinal hernias on standing, reducible. Testicles are normal. ASSESSMENT AND PLAN: 1. Bilateral inguinal hernias. Plan robotic mesh repair. He understands risks and benefits and consents. 2. Chronic obstructive pulmonary disease. Inhalers. Clearance after seen by Dr. Acosta preoperatively. DuoNeb preoperatively. 3. Cardiomyopathy. Cardiac stress test recently without reversible ischemia seen by Dr. Marie. He may need to be admitted postoperatively. We will determine that intraoperatively and in postoperative course. It is likely he will need to be observed postoperatively. 4. Chronic anticoagulation, Eliquis. We will hold 2 days preoperatively. Job ID: [id number]
[2019-01-30 10:41] VITALS: BMI 31.9
[2019-02-01] MEDS ORDERED: Fentanyl 100 MCG/2 ML VIAL ONE (06:25)
[2019-02-01] MEDS ORDERED: Bupivacaine/Epinephrine 0.25% 30 ML VIAL ONE (06:37)
[2019-02-01] MEDS ORDERED: SUGAMMADEX SODIUM 200 MG/2 ML VIAL ONE (06:37)
[2019-02-01] MEDS ORDERED: Ketorolac Tromethamine 30 MG/ML VIAL ONE (06:50)
[2019-02-01] MEDS ORDERED: Albuterol Sulfate HFA (OR ONLY) ONE (07:26)
[2019-02-01] MEDS ORDERED: Norepinephrine 4 MG/4 ML VIAL ONE (07:37)
[2019-02-01] MEDS ORDERED: Phenylephrine HCL 10 MG/ML VIAL ONE (07:42)
--- NOTE | 2019-02-01 11:14 | OP ---
DATE OF PROCEDURE: 02/01/2019 PREOPERATIVE DIAGNOSIS: Bilateral inguinal hernias. PROCEDURE PERFORMED: Robot laparoscopic 3DMax Bard large mesh repair of bilateral inguinal hernias. ANESTHESIA: General, local 0.5% Marcaine with epinephrine 30 mL total volume used. Dooley placed removed at the end. DESCRIPTION OF PROCEDURE: The patient was taken to the operating room, where under general anesthesia, abdomen was prepared with ChloraPrep and draped in routine fashion. He was placed in slight Trendelenburg and local anesthetic was infiltrated in the skin and subcutaneous tissue about the operative site. Right paramedian incision made above the umbilicus and a Veress needle placed and pneumoperitoneum to 15 mmHg obtained with a Veress needle, replaced with an 11 balloon port. Video laparoscope inserted. Right lateral upper abdominal incision was made and left lateral upper abdominal incision was made. An 8 mm port placed under laparoscopic visualization. Robot was docked connected and robotic inguinal hernia repair undertaken. Peritoneal flaps developed on the right, where he had a large right inguinal hernia with small bowel into the scrotum. The small bowel was reduced and the flap extended from the midline to the anterior superior iliac spine on the right and flap dissected free medially to the Erick's ligament and laterally. Retroperitoneum dissected free. Hernia sac was dissected free from the cord structures. Once about 8 cm of cord structures were exposed and dissected free, the 3DMax Bard large mesh inserted, properly oriented and secured to Erick ligament with 3-0 Vicryl and to the anterior abdominal wall to the patient's right of the inferior epigastric vessels with 3-0 Vicryl. The flap was then reapproximated with continuous suture of V-Loc suture 2-0. Good hemostasis noted. On the left side, there was noted to be hernia clinically and a small deflect appreciated robotically. Flap created from the anterior superior iliac spine to the midline, dissecting the flap free. There was some bleeding medially and the Ray-Julieth used to hemostasis. Good hemostasis was noted, Ray-Julieth removed. 3DMax Bard large mesh was then inserted properly, oriented, secured to Erick ligament with 3-0 Vicryl. Mesh was secured to the anterior abdominal wall to the left epigastrium with 3-0 Vicryl and peritoneal flap closed with continuous suture of 0 V-Loc suture. Once this was completed, the excellent hernia repair was noted. Good hemostasis was noted. Pneumoperitoneum reduced. All instruments removed and right paramedian deep fascia rectus approximated with 0 Vicryl UR needle and skin with continuous subcuticular suture of 4-0 Monocryl and [place] glue applied. Job ID: [id number]
[2019-02-01] MEDS ORDERED: Furosemide 40 MG TAB PO SCH (12:30)
[2019-02-01] MEDS ORDERED: HYDROcodone/Acetaminophen 5/325 mg Tablet ONE (12:33)
== END 2019-02-01 13:45 | disposition home or self-care (01) ==
LOC: SDC 05:51
PROVIDERS: ATTEND Specialist
PROC: 0YUA4JZ Supplement Bilateral Inguinal Region with Synthetic Substitute, Percutaneous Endoscopic Approach (ICD-10-PCS; principal; 2019-02-01)
DX: K40.20 Bilateral inguinal hernia, without obstruction or gangrene, not specified as recurrent (principal); J44.9 Chronic obstructive pulmonary disease, unspecified; I42.9 Cardiomyopathy, unspecified; F17.210 Nicotine dependence, cigarettes, uncomplicated; E11.9 Type 2 diabetes mellitus without complications; G47.30 Sleep apnea, unspecified; I10 Essential (primary) hypertension; I25.2 Old myocardial infarction; I25.10 Atherosclerotic heart disease of native coronary artery without angina pectoris; Z79.01 Long term (current) use of anticoagulants; Z79.84 Long term (current) use of oral hypoglycemic drugs; Z79.899 Other long term (current) drug therapy; Z95.5 Presence of coronary angioplasty implant and graft; Z95.810 Presence of automatic (implantable) cardiac defibrillator; Z99.81 Dependence on supplemental oxygen; Z99.89 Dependence on other enabling machines and devices
CPT/HCPCS: C1781; J0131; J0690; J1885; J2370; J3010

== ENCOUNTER 2019-12-17 13:21 | Emergency (ER) | payer OTHER ==
[2019-12-17 13:55] LABS: #Basophils 0.1 thou/uL (0.0-0.2); #Eosinphils 0.2 thou/uL (0.0-0.7); #Lymphocytes 1.9 thou/uL (1.20-3.40); #Monocytes 0.7 thou/uL (0.11-0.59); #Neutrophils 3.8 thou/uL (1.40-6.50); %Basophils 0.9 % (0.0-1.0); %Eosinophils 2.8 % (0.0-10.0); %Lymphocytes 28.3 % (21.0-51.0); %Monocytes 10.1 % (0.0-10.0); Hemoglobin 12.9 g/dL (14.0-18.0); Mean Corpuscular HGB CONC 32.1 g/dL (32.0-36.0); Mean Corpuscular Hemoglobin 31.4 pg (27.0-31.0); Mean Corpuscular Volume 97.8 fL (78.0-98.0); Mean Platelet Volume 6.7 fL (7.4-10.4); Platelet Count 320 thou/uL (130-400); RBC Distribution Width 12.3 % (11.5-14.5); White Blood Cell (WBC) Count 6.6 thou/uL (4.8-10.8)
[2019-12-17] MEDS ORDERED: Furosemide 40 MG/4 ML VIAL ONE (13:59)
[2019-12-17 14:13] LABS: ALT (SGPT) 15 U/L (8-55); AST (SGOT) 15 U/L (5-34); Albumin 2.6 g/dL (3.4-4.8); Alkaline Phosphatase 73 U/L (40-110); Anion Gap 10 mmol/L (10-20); BUN (Urea Nitrogen) 25 mg/dL (8.4-25.7); Bilirubin, Total 0.2 mg/dL (0.2-1.2); Calc. Creatinine Clearance 0 mL/min (70-130); Carbon Dioxide 27 mmol/L (23-31); Chloride 109 mmol/L (98-107); Estimated GFR-MDRD 29; Globulin 4.1 g/dL (2.4-3.5); Glucose 119 mg/dL (80-115); Potassium 4.2 mmol/L (3.5-5.1); Protein, Total 6.7 g/dL (5.8-8.1); Sodium 142 mmol/L (136-145)
--- NOTE | 2019-12-17 14:17 | RAD ---
Exam: Chest one view HISTORY:Chest pain Comparison: 12/10/2017, 01/30/2019 FINDINGS: Cardiac silhouette:Cardiomegaly. Stable dual lead left-sided transvenous defibrillator Aorta: Stable atherosclerosis Pulmonary vessels: Normal Costophrenic angles: Clear LUNGS: Inflation with chronic changes. Possible 8 mm nodule projecting over the left lung base. Pneumothorax: None Osseous abnormalities: None IMPRESSION: 1. Atherosclerosis 2. Cardiomegaly without evidence of congestive heart failure. 3. Questionable lung nodule projecting over the left lung base Code lung nodule
== END 2019-12-17 16:09 | disposition home or self-care (01) ==
LOC: ERS 13:21
DX: R60.0 Localized edema (principal); K21.9 Gastro-esophageal reflux disease without esophagitis; I25.10 Atherosclerotic heart disease of native coronary artery without angina pectoris; I25.2 Old myocardial infarction; E11.9 Type 2 diabetes mellitus without complications; J44.9 Chronic obstructive pulmonary disease, unspecified; I11.0 Hypertensive heart disease with heart failure; I50.9 Heart failure, unspecified; E78.5 Hyperlipidemia, unspecified; E78.00 Pure hypercholesterolemia, unspecified; F17.210 Nicotine dependence, cigarettes, uncomplicated; Z79.84 Long term (current) use of oral hypoglycemic drugs; Z79.899 Other long term (current) drug therapy
CPT/HCPCS: 71045; 80053; 83880; 84484; 85025; 93005; 96374; J1940

== ENCOUNTER 2020-01-05 02:42 | Inpatient (IN) | payer OTHER ==
[2020-01-05] MEDS ORDERED: hydrALAZINE 20 MG/ML VIAL SLOW IVP PRN (03:19)
[2020-01-05] MEDS ORDERED: Dextrose 50% Abboject 50 ML SYRINGE SLOW IVP PRN (03:19)
[2020-01-05] MEDS ORDERED: Ondansetron PF 4 MG/2 ML Vial IVP PRN (03:19)
[2020-01-05] MEDS ORDERED: Insulin Regular 300 UNITS/3 ML VIAL SC PRN (03:19)
[2020-01-05] MEDS ORDERED: Dextrose 5% in Water 1,000 ML IV PRN (03:19)
[2020-01-05] MEDS ORDERED: Potassium Phosphate 30 MMOL in Sodium Chloride 0.9% 250 ML 250 ML IVPB SCH (04:30)
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
[2020-01-05] MEDS: traMADol HCl 50 MG TAB PO SCH ×2 (05:46→18:22)
[2020-01-05 05:48] VITALS: BMI 28.8
[2020-01-05] MEDS: Acetaminophen 500 MG TAB PO SCH ×3 (06:20→17:16)
[2020-01-05 06:26] LABS: #Monocytes 0.7 thou/uL (0.11-0.59); #Neutrophils 6.8 thou/uL (1.40-6.50); %Basophils 0.4 % (0.0-1.0); %Eosinophils 0.2 % (0.0-10.0); %Lymphocytes 11.8 % (21.0-51.0); %Monocytes 8.2 % (0.0-10.0); %Neutrophils 79.4 % (42.0-75.0); Hemoglobin 13.3 g/dL (14.0-18.0); Mean Corpuscular HGB CONC 30.6 g/dL (32.0-36.0); Mean Corpuscular Hemoglobin 29.9 pg (27.0-31.0); Mean Corpuscular Volume 97.6 fL (78.0-98.0); Mean Platelet Volume 6.6 fL (7.4-10.4); Platelet Count 249 thou/uL (130-400); RBC Distribution Width 12.6 % (11.5-14.5); Red Blood Cell (RBC) Count 4.44 mill/uL (4.70-6.10); White Blood Cell (WBC) Count 8.6 thou/uL (4.8-10.8)
[2020-01-05 06:33] LABS: INR-International Normal Ratio 1.2; PTT 39.8 sec (22.9-36.1); Prothrombin Time 14.8 sec (12.0-14.7)
[2020-01-05 06:43] LABS: Phosphorus 4.8 mg/dL (2.3-4.7)
[2020-01-05 06:46] LABS: Anion Gap 13 mmol/L (10-20); BUN (Urea Nitrogen) 25 mg/dL (8.4-25.7); Calc. Creatinine Clearance 32 mL/min (70-130); Calcium 8.3 mg/dL (7.8-10.44); Carbon Dioxide 27 mmol/L (23-31); Chloride 106 mmol/L (98-107); Estimated GFR-MDRD 29; Glucose 117 mg/dL (80-115); Magnesium 1.8 mg/dL (1.6-2.6); Potassium 3.5 mmol/L (3.5-5.1); Sodium 142 mmol/L (136-145)
[2020-01-05] MEDS ORDERED: Famotidine 20 MG TAB PO SCH (09:00)
[2020-01-05] MEDS: Senokot S 8.6-50 MG TAB PO SCH ×2 (09:10→21:07)
[2020-01-05] MEDS: Famotidine 20 MG TAB PO SCH (09:10)
[2020-01-05] MEDS: Polyethylene Glycol 3350 17 GM Packet PO SCH (09:10)
[2020-01-05] MEDS ORDERED: Magnesium 2 GM/50 ML 2 GM in Premix Bag 1 BAG IVPB SCH (10:15)
[2020-01-05] MEDS ORDERED: Vancomycin 1 GM in Premix Bag 1 BAG IVPB SCH (10:30)
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
[2020-01-05] MEDS ORDERED: Non-Formulary Item 1 EACH (Albuterol Sulfate [Proair Hfa] 8.5 GM Hfa.Aer.Ad) INH PRN (11:41)
[2020-01-05] MEDS ORDERED: Albuterol 200 PUFF (6.7GM INHALER) INH PRN (12:34)
[2020-01-05 12:50] LABS: SARS-CoV-2 MS2 Positive; SARS-CoV-2 N Gene Negative; SARS-CoV-2 S Gene Negative; SARS-CoV-2 by NAA Not Detected (NotDetected); SARS-CoV-2 orf1ab Negative
[2020-01-05] MEDS: hydrALAZINE 25 MG TAB PO SCH ×2 (12:59→20:59)
[2020-01-05] MEDS ORDERED: Digoxin 0.125 MG TAB PO SCH (16:15)
[2020-01-05] MEDS ORDERED: cloNIDine 0.1 MG TAB PO SCH (16:15)
[2020-01-05] MEDS ORDERED: Carvedilol 25 MG TAB PO SCH (16:15)
--- NOTE | 2020-01-05 16:43 | PRG ---
DATE OF SERVICE: 01/05/2020 SUBJECTIVE: The patient was seen this morning during rounds. He was lying in bed, resting comfortably with no signs of acute distress. He reported his pain is well controlled. He is tolerating a diet and voiding without difficulties. The patient is pending OR tomorrow for fixation of his right femoral neck fracture as he is on Eliquis. The patient is hypertensive this morning. Home antihypertensive medications have been restarted. The patient has no signs of heart failure. He does have AICD. Echo demonstrates EF of 20% to 25%. There is no concern as of now for fluid overload. OBJECTIVE: VITAL SIGNS: Temperature 97.8, pulse 73, respirations 20, oxygen saturation 92% on room air, and blood pressure 185/92. GENERAL: Well-appearing elderly male, sitting up in bed with no signs of acute distress. PULMONARY: Equal chest rise and fall. No signs of acute respiratory distress. CARDIAC: Regular rate and rhythm. GASTROINTESTINAL: Abdomen is soft, nontender, and nondistended. EXTREMITIES: 2+ pulses in all extremities. Gross motor and sensation intact. No significant swelling noted. NEURO: GCS is 15. LABORATORY FINDINGS: White count 8.6, hemoglobin 13.3, hematocrit 43.4, and platelets 249. INR 1.2. Sodium 142, potassium 3.6, chloride 106, bicarb 27, BUN 25, creatinine 2.67, glucose 117, phosphorus 4.8, and magnesium 1.8. BNP 962. DIAGNOSTIC FINDINGS: There are no new diagnostic findings to report. ASSESSMENT: 1. Status post mechanical fall, on Eliquis. 2. Right femoral neck fracture. 3. Acute kidney injury on chronic kidney disease, improving. 4. History of automatic implantable cardioverter defibrillator. 5. Atrial fibrillation. 6. Coronary artery disease. 7. Hypertension. 8. Diabetes. 9. Chronic obstructive pulmonary disease. PLAN: Continue current diet and pain regimen. Discontinue IV morphine. Start the patient's home antihypertensive medications. Start digoxin as well. We will hold the patient's Lasix today. N.p.o. at midnight, to the OR in the morning. Magnesium replacement today. This patient was discussed with Dr. Noble before this dictation. Job ID: [id number]
--- NOTE | 2020-01-05 19:42 | CON ---
DATE OF CONSULTATION: HISTORY OF PRESENT ILLNESS: Mr. Abad is a 64-year-old male with diabetes, heart failure, history of coronary artery disease, who presents with fall, injuring his right hip. The patient states that he walks several miles a day. Per his report, he is resting comfortably in bed. PHYSICAL EXAMINATION: VITAL SIGNS: Afebrile. GENERAL: No acute distress. EXTREMITIES: Right lower extremity externally rotated, shortened. The patient is neurovascularly intact. No wounds. IMPRESSION: Status post fall with a right femoral neck fracture. ASSESSMENT AND PLAN: The patient will be planned to be taken to the OR tomorrow for right total hip arthroplasty given his functional status. I discussed the risks and benefits of surgery to include, pain, scar, bleeding, infection, damage to vital structures, decreased range of motion and strength, failure of procedure despite surgical intervention, loss of life or limb, potential blood clots. I discussed after this procedure that he would decrease ambulatory status versus attempted repair,, but he would not be as active or mobile as previous level of function. He understands the mortality associated with it and he elects to proceed. We will plan for a right total hip arthroplasty tomorrow. Job ID: [id number] [facility]
[2020-01-05] MEDS: Carvedilol 25 MG TAB PO SCH (21:00)
[2020-01-05] MEDS: Amlodipine 5 MG TAB PO SCH (21:00)
[2020-01-05] MEDS: Atorvastatin Calcium 40 MG TAB PO SCH (21:02)
[2020-01-05] MEDS: cloNIDine 0.1 MG TAB PO SCH (21:07)
[2020-01-05] MEDS: Morphine 2 MG/ML VIAL SLOW IVP PRN (21:10)
[2020-01-06] MEDS: cloNIDine 0.1 MG TAB PO SCH ×3 (00:22→20:36)
[2020-01-06] MEDS: Acetaminophen 500 MG TAB PO SCH ×5 (00:22→23:48)
[2020-01-06 06:16] LABS: #Lymphocytes 0.9 thou/uL (1.20-3.40); #Monocytes 0.7 thou/uL (0.11-0.59); #Neutrophils 7.9 thou/uL (1.40-6.50); %Basophils 0.1 % (0.0-1.0); %Eosinophils 0.4 % (0.0-10.0); %Lymphocytes 9.2 % (21.0-51.0); %Monocytes 7.5 % (0.0-10.0); %Neutrophils 82.9 % (42.0-75.0); Hemoglobin 15.5 g/dL (14.0-18.0); Mean Platelet Volume 7.5 fL (7.4-10.4); Platelet Count 283 thou/uL (130-400); RBC Distribution Width 12.5 % (11.5-14.5); Red Blood Cell (RBC) Count 4.99 mill/uL (4.70-6.10); White Blood Cell (WBC) Count 9.5 thou/uL (4.8-10.8)
[2020-01-06] MEDS: Morphine 2 MG/ML VIAL SLOW IVP PRN ×3 (06:21→20:30)
[2020-01-06 06:31] LABS: Anion Gap 15 mmol/L (10-20); BUN (Urea Nitrogen) 25 mg/dL (8.4-25.7); Calc. Creatinine Clearance 36 mL/min (70-130); Calcium 8.3 mg/dL (7.8-10.44); Carbon Dioxide 22 mmol/L (23-31); Chloride 106 mmol/L (98-107); Estimated GFR-MDRD 33; Glucose 130 mg/dL (80-115); Magnesium 2.1 mg/dL (1.6-2.6); Phosphorus 5.3 mg/dL (2.3-4.7); Potassium 3.9 mmol/L (3.5-5.1); Sodium 139 mmol/L (136-145)
[2020-01-06] MEDS: Carvedilol 25 MG TAB PO SCH ×2 (06:39→20:35)
[2020-01-06] MEDS ORDERED: Vancomycin 1 GM/200 ML BAG ONE (07:47)
[2020-01-06] MEDS ORDERED: Sodium Chloride 0.9% 100 ML ONE (07:48)
[2020-01-06] MEDS ORDERED: Tranexamic Acid 1,000 MG/10 ML VIAL ONE (07:48)
[2020-01-06] MEDS ORDERED: Fentanyl 100 MCG/2 ML VIAL ONE (08:14)
[2020-01-06] MEDS ORDERED: Phenylephrine 10 MG/ML VIAL ONE (08:15)
[2020-01-06] MEDS ORDERED: Bupivacaine HCl 0.5%/Epinephrine 1:200,000/PF 30 ml Vial ONE (10:06)
[2020-01-06] MEDS: Digoxin 0.125 MG TAB PO SCH (10:20)
[2020-01-06] MEDS: Losartan 25 MG TAB PO SCH (10:21)
[2020-01-06] MEDS: Senokot S 8.6-50 MG TAB PO SCH ×2 (10:21→20:37)
[2020-01-06] MEDS: hydrALAZINE 25 MG TAB PO SCH ×3 (10:21→20:34)
[2020-01-06] MEDS: Polyethylene Glycol 3350 17 GM Packet PO SCH (10:21)
[2020-01-06] MEDS: Famotidine 20 MG TAB PO SCH (10:21)
[2020-01-06] MEDS ORDERED: SUGAMMADEX SODIUM 200 MG/2 ML VIAL ONE (10:26)
[2020-01-06] MEDS ORDERED: Lidocaine 1% PF 5 ML VIAL ONE (10:44)
[2020-01-06] MEDS ORDERED: Glycopyrrolate 0.2 MG/ML 5 ML SYRINGE ONE (10:44)
[2020-01-06] MEDS ORDERED: PROPOFOL 200 MG/20 ML VIAL ONE (10:44)
[2020-01-06] MEDS ORDERED: Ondansetron PF 4 MG/2 ML Vial ONE (10:44)
[2020-01-06] MEDS ORDERED: Dexamethasone 20 MG/5 ML VIAL ONE (10:44)
[2020-01-06] MEDS ORDERED: PHENYLEPHRINE-NS 100 MCG/ML 10 ML SYRINGE ONE (10:44)
[2020-01-06] MEDS ORDERED: HYDROmorphone 2 MG/ML VIAL SLOW IVP PRN (10:45)
[2020-01-06] MEDS ORDERED: Promethazine HCl 25 MG/ML VIAL SLOW IVP PRN (10:45)
[2020-01-06] MEDS ORDERED: PACU-Morphine 4MG/ML VIAL SLOW IVP PRN (10:45)
[2020-01-06] MEDS ORDERED: Ondansetron HCl/PF 4 MG/2 ML Vial IVP PRN (10:45)
[2020-01-06] MEDS ORDERED: Promethazine HCl 25 MG/ML VIAL IM PRN (10:45)
[2020-01-06] MEDS: Insulin Regular 300 UNITS/3 ML VIAL SC PRN (12:09)
--- NOTE | 2020-01-06 14:00 | RAD ---
EXAM: AP PELVIS ONE VIEW: 01/06/20 HISTORY: Status post total right hip replacement. FINDINGS/IMPRESSION: Recent right total hip replacement without dislocation or periprosthetic fracture. POS: OFF
--- NOTE | 2020-01-06 14:08 | EKG ---
Test Reason : Blood Pressure : / mmHG Vent. Rate : 075 BPM Atrial Rate : 075 BPM P-R Int : 156 ms QRS Dur : 124 ms QT Int : 382 ms P-R-T Axes : 074 062 252 degrees QTc Int : 426 ms Normal sinus rhythm Left ventricular hypertrophy with QRS widening Cannot rule out Inferior infarct , age undetermined Abnormal ECG Confirmed by HAFSA MURRAY ([id number]), sports editor JOSE LEMUS ([id number]) on 01/06/2020 2:08:36 PM Referred By: Confirmed By:HAFSA MURRAY
--- NOTE | 2020-01-06 14:30 | RAD ---
EXAM: RIGHT HIP ONE VIEW: 01/06/20 HISTORY: Status post total hip replacement. Single cross-table lateral view of the right hip demonstrates total right hip replacement. No disloca tion or periprosthetic fracture. IMPRESSION: Postop right total hip replacement. POS: OFF
[2020-01-06] MEDS: CEFAZOLIN 2 GM in Premix Bag 1 BAG IVPB SCH ×2 (15:54→23:48)
--- NOTE | 2020-01-06 16:54 | PRG ---
DATE OF SERVICE: 01/06/2020 SUBJECTIVE: Mr. Abad is a 64-year-old male with significant past medical history, who was admitted yesterday for a fall with a right hip fracture. The patient was on Eliquis. He was taken to the operating theater today with Dr. Felipe, tolerated the procedure well, had ORIF of the right hip. I have seen him postoperatively. He is hemodynamically stable. Pain is controlled. Feels well. No shortness of air. OBJECTIVE: VITAL SIGNS: Today, temperature is 96.7, blood pressure is 123/75, heart rate is 71. He is breathing 18 times per minute, saturating 95% on 2 L of oxygen nasal cannula, that he reports he uses at home. GENERAL: This is a 64-year-old male, supine in bed, in no acute distress. HEENT: Normocephalic, atraumatic. Trachea is midline. RESPIRATORY: Equal rise and fall. Bilateral breath sounds. Clear to auscultation. No rubs or wheezes appreciated. CARDIOVASCULAR: Regular rate and rhythm. EXTREMITIES: No edema. Strong pulses. ABDOMEN: Soft, nontender. PELVIS: Stable. Has a dry dressing about his right hip. MUSCULOSKELETAL: Moves extremities well. Has good sensation in all extremities. Has strong pulses and warm extremities. PSYCH: Normal mood and affect. NEURO: Alert and oriented to person, place, time, and event. LABORATORY DATA: Today, white blood cell count is 9.5, platelets 283, hemoglobin and hematocrit 15.3 and 48.3 respectively. Sodium is 139, potassium is 3.9, chloride is 106, CO2 is 22, BUN is 15, creatinine is 2.43, close to his baseline. Glucose is 130, phosphorus is 5.3, magnesium is 2.1, calcium 8.3. ASSESSMENT: 1. Mechanical fall. 2. Right femoral neck fracture, status post ORIF. 3. Chronic kidney disease. 4. Acute traumatic pain. 5. History of coronary artery disease, AICD, systolic heart failure with EF of 20% to 25%. 6. Type 2 diabetes. 7. Hypertension. 8. Chronic obstructive pulmonary disease. 9. Gastroesophageal reflux disease. PLAN: 1. We will continue pain regimen. 2. Remove the Dooley. 3. No IV fluids at this time. 4. Resume diet. 5. Work with PT, OT. 6. Post acute care rehab screen has been placed. 7. Resume Lasix. 8. Resume apixaban for prophylaxis. 9. Continue Pepcid. 10. Continue all other supportive care including antihypertensives and as needed bronchodilators. 11. I discussed with the bedside RN and Orthopedics. Job ID: [id number]
[2020-01-06] MEDS: Furosemide 40 MG TAB PO SCH (20:33)
[2020-01-06] MEDS: Potassium Chloride 10 MEQ TAB PO SCH (20:33)
[2020-01-06] MEDS: Apixaban 5 MG TAB PO SCH (20:34)
[2020-01-06] MEDS: Amlodipine 5 MG TAB PO SCH (20:35)
[2020-01-06] MEDS: Atorvastatin Calcium 40 MG TAB PO SCH (20:36)
[2020-01-07 05:25] LABS: #Lymphocytes 0.9 thou/uL (1.20-3.40); #Monocytes 1.1 thou/uL (0.11-0.59); #Neutrophils 12.8 thou/uL (1.40-6.50); %Basophils 0.1 % (0.0-1.0); %Eosinophils 0.1 % (0.0-10.0); %Lymphocytes 6.2 % (21.0-51.0); %Monocytes 7.6 % (0.0-10.0); %Neutrophils 85.9 % (42.0-75.0); Mean Corpuscular Hemoglobin 30.8 pg (27.0-31.0); Mean Corpuscular Volume 99.1 fL (78.0-98.0); Mean Platelet Volume 7.4 fL (7.4-10.4); Platelet Count 243 thou/uL (130-400); RBC Distribution Width 12.4 % (11.5-14.5); Red Blood Cell (RBC) Count 4.24 mill/uL (4.70-6.10); White Blood Cell (WBC) Count 14.8 thou/uL (4.8-10.8)
[2020-01-07 05:49] LABS: Anion Gap 11 mmol/L (10-20); BUN (Urea Nitrogen) 37 mg/dL (8.4-25.7); Calc. Creatinine Clearance 29 mL/min (70-130); Calcium 7.9 mg/dL (7.8-10.44); Carbon Dioxide 24 mmol/L (23-31); Chloride 102 mmol/L (98-107); Estimated GFR-MDRD 26; Glucose 112 mg/dL (80-115); Magnesium 2.1 mg/dL (1.6-2.6); Potassium 4.4 mmol/L (3.5-5.1); Sodium 133 mmol/L (136-145)
[2020-01-07] MEDS: Acetaminophen 500 MG TAB PO SCH ×4 (07:04→23:30)
[2020-01-07] MEDS: Losartan 25 MG TAB PO SCH (08:55)
[2020-01-07] MEDS: Potassium Chloride 10 MEQ TAB PO SCH ×2 (08:56→20:42)
[2020-01-07] MEDS: Furosemide 40 MG TAB PO SCH (08:56)
[2020-01-07] MEDS: hydrALAZINE 25 MG TAB PO SCH ×3 (08:56→20:38)
[2020-01-07] MEDS: Carvedilol 25 MG TAB PO SCH ×2 (08:57→20:41)
[2020-01-07] MEDS: Famotidine 20 MG TAB PO SCH (08:57)
[2020-01-07] MEDS: Digoxin 0.125 MG TAB PO SCH (08:57)
[2020-01-07] MEDS: cloNIDine 0.1 MG TAB PO SCH ×3 (08:57→20:53)
[2020-01-07] MEDS: Morphine 2 MG/ML VIAL SLOW IVP PRN ×2 (08:58→23:37)
[2020-01-07] MEDS: Polyethylene Glycol 3350 17 GM Packet PO SCH (08:58)
[2020-01-07] MEDS: Senokot S 8.6-50 MG TAB PO SCH ×2 (08:58→20:41)
[2020-01-07] MEDS: Apixaban 5 MG TAB PO SCH ×2 (08:58→20:42)
[2020-01-07] MEDS: traMADol HCl 50 MG TAB PO PRN (11:31)
[2020-01-07] MEDS: Insulin Regular 300 UNITS/3 ML VIAL SC PRN (11:37)
--- NOTE | 2020-01-07 15:23 | PRG ---
DATE OF SERVICE: 01/07/2020 SUBJECTIVE: Mr. Abad is a 64-year-old male with multiple comorbidities, postop day #1, status post ORIF of a right hip fracture. Patient remains hemodynamically stable. Pain is reported to be controlled. He is back on his home medications. Vital signs remained stable. No acute events overnight. Of note, his creatinine did seem to be elevated slightly this morning. Patient states that he is taking orals well, peeing well, and he has worked with PT. OBJECTIVE: VITAL SIGNS: Temperature is 97.4, blood pressure 123/73, heart rate is 70, breathing 18 times a minute, 97% on 2 L of oxygen nasal cannula. GENERAL: A 64-year-old male, lying in bed, in no acute distress. HEENT: Normocephalic, atraumatic. Trachea is midline. RESPIRATORY: Bilateral breath sounds. Clear to auscultation . CARDIOVASCULAR: Regular rate and rhythm. He has no edema and strong pulses. ABDOMEN: Soft and nontender. PELVIS: Stable. Dressing is dry. MUSCULOSKELETAL: Moves extremities well. Has good sensation. NEURO: Alert, oriented to person, place, time, and event. PSYCH: Normal mood and affect. SKIN: Warm and dry. LABORATORY DATA: From today, white blood cell count of 14.8, platelets of 243, hemoglobin and hematocrit 13 and 42 respectively. Sodium is 133, potassium 4.3, chloride is 102, CO2 is 24, BUN is 37, creatinine 2.98, glucose is 112, phos is 6, and mag of 2.1, calcium is 7.9. ASSESSMENT AND PLAN: 1. Fall with a right femoral neck fracture, status post open reduction and internal fixation. 2. Acute on chronic kidney disease. 3. Acute traumatic pain. 4. History of coronary artery disease, status post automatic implantable cardioverter-defibrillator, systolic heart failure with ejection fraction of 20% to 25%. 5. Type 2 diabetes. 6. History of hypertension. 7. History of chronic obstructive pulmonary disease. PLAN: 1. Continue with pain regimen. 2. Continue to work with PT. 3. Rehab screen has been placed. Discussed with the rehabilitation caseworker. 4. We will reduce Lasix from 40 mg twice daily to 20 mg twice daily. This is half of his routine as he may be slightly volume contracted at this point. 5. Repeat chemistry including creatinine in the morning. 6. Continue all other supportive care. I have resumed the patient's apixaban for prophylaxis. 7. I have answered all questions of the patient at the bedside. Job ID: [id number]
[2020-01-07] MEDS: Atorvastatin Calcium 40 MG TAB PO SCH (20:42)
[2020-01-07] MEDS: Amlodipine 5 MG TAB PO SCH (20:43)
[2020-01-08 05:05] LABS: #Lymphocytes 0.9 thou/uL (1.20-3.40); #Neutrophils 7.9 thou/uL (1.40-6.50); %Eosinophils 0.4 % (0.0-10.0); %Lymphocytes 9.1 % (21.0-51.0); %Monocytes 9.9 % (0.0-10.0); %Neutrophils 80.6 % (42.0-75.0); Hemoglobin 11.9 g/dL (14.0-18.0); Mean Corpuscular HGB CONC 31.4 g/dL (32.0-36.0); Mean Corpuscular Hemoglobin 30.7 pg (27.0-31.0); Mean Corpuscular Volume 97.7 fL (78.0-98.0); Mean Platelet Volume 7.6 fL (7.4-10.4); Platelet Count 239 thou/uL (130-400); RBC Distribution Width 12.2 % (11.5-14.5); Red Blood Cell (RBC) Count 3.86 mill/uL (4.70-6.10); White Blood Cell (WBC) Count 9.8 thou/uL (4.8-10.8)
[2020-01-08 05:36] LABS: Anion Gap 14 mmol/L (10-20); BUN (Urea Nitrogen) 44 mg/dL (8.4-25.7); Calc. Creatinine Clearance 28 mL/min (70-130); Calcium 7.8 mg/dL (7.8-10.44); Carbon Dioxide 23 mmol/L (23-31); Chloride 102 mmol/L (98-107); Estimated GFR-MDRD 24; Glucose 164 mg/dL (80-115); Magnesium 2.2 mg/dL (1.6-2.6); Phosphorus 4.6 mg/dL (2.3-4.7); Potassium 4.5 mmol/L (3.5-5.1); Sodium 134 mmol/L (136-145)
[2020-01-08] MEDS: Acetaminophen 500 MG TAB PO SCH ×4 (05:46→23:36)
--- NOTE | 2020-01-08 07:28 | OP ---
DATE OF PROCEDURE: 01/06/2020 PREOPERATIVE DIAGNOSIS: Right femoral neck fracture. POSTOPERATIVE DIAGNOSIS: Right femoral neck fracture. PROCEDURE PERFORMED: Right total hip arthroplasty. COLOR MAKER: Gordo Gee. ANESTHESIA: Dr. Goldman. The patient received a general intubation with 20 mL of 0.5% Marcaine with epinephrine. ESTIMATED BLOOD LOSS: 200 mL. ANTIBIOTICS: Ancef 2 g, vancomycin 1 g. The patient received TXA 1 g. IMPLANTS: Adi Tritanium Trident size 2, 52 mm shell with a 10 degree 36 mm poly insert, size 5 Accolade II 130 degree neck stem and a 36 +7.5 ceramic head. COMPLICATIONS: None. HISTORY OF PRESENT ILLNESS: Mr. Abad is a 64-year-old male, who is an active ambulator, presents with right hip pain after a ground level fall, sustaining a right subcapital femoral neck fracture. I discussed with him the risks and benefits. With his activity level, walking several miles a day, would benefit from a right total hip arthroplasty. I discussed with him the risks and benefits of surgery to include pain, scar, bleeding, infection, damage to vital structures, decreased range of motion and strength, continued pain despite surgical intervention, failure of procedure, need for further surgeries, loss of life or limb. The patient and family understood risks and benefits of procedure, elected to proceed. DESCRIPTION OF PROCEDURE: Time-out was performed, the patient's right lower extremity was confirmed as the operative site based on site, consents, and marking. After time-out, the patient's right lower extremity was placed in lateral position with bony prominences well padded and axillary roll in place. We made a lateral incision down through skin down to the IT band, came down to the gluteus medius and minimus, exposed the capsule, T'd the capsule, placed Vicryls to expose the femoral head. I removed the neck, heal, and calcar napkin ring cut. We then removed the femoral head, exposed and did a labrectomy, with our retractors in place, reamed up to a 52 and placed line to line 52 mm Trident II acetabular shell and had good fixation. We placed a 10- degree Trident X3 poly liner, removed the femoral neck. We broached starting with a 0, up to a 5, calcar planed, cut a little neck and then broached back up a little further and ended up with a 5, the 6 was too proud. We calcar planed down, making it clean, positioning, broached, washed, and reduced. With the +5, we felt we had good stability, a little bit of extra shuck and therefore we ultimately chose it when we placed our final size implant. When it was broached down, we placed the implant in position, reduced the hip with a +7.5 ceramic head, had good overall stability and range of motion. No signs of dislocation. We washed, closed the capsule, closed the medius and minimus in layers through sutures and bone tunnels, #2 Vicryl. We closed the IT band with #2 Vicryl, #2 Stratafix, 0 Stratafix, and 2-0 Stratafix, and glue. My assistant grocery helped throughout with retraction of the acetabulum, reaming, exposure of the femoral neck, and closure of all three layers. The patient will be followed up in-house. Receive preop antibiotics for 24 hours. Will be weightbearing as tolerated to right lower extremity, will need disposition. Job ID: [id number] [facility]
[2020-01-08] MEDS: Digoxin 0.125 MG TAB PO SCH (08:58)
[2020-01-08] MEDS: Losartan 25 MG TAB PO SCH (08:59)
[2020-01-08] MEDS: hydrALAZINE 25 MG TAB PO SCH ×3 (09:00→20:34)
[2020-01-08] MEDS: Furosemide 40 MG TAB PO SCH ×2 (09:00→20:36)
[2020-01-08] MEDS: Senokot S 8.6-50 MG TAB PO SCH ×2 (09:00→20:38)
[2020-01-08] MEDS: Apixaban 5 MG TAB PO SCH ×2 (09:01→20:34)
[2020-01-08] MEDS: cloNIDine 0.1 MG TAB PO SCH ×2 (09:01→20:38)
[2020-01-08] MEDS: Potassium Chloride 10 MEQ TAB PO SCH ×2 (09:01→20:36)
[2020-01-08] MEDS: Polyethylene Glycol 3350 17 GM Packet PO SCH (09:02)
[2020-01-08] MEDS: Carvedilol 25 MG TAB PO SCH ×2 (09:02→20:35)
[2020-01-08] MEDS: Famotidine 20 MG TAB PO SCH (09:52)
[2020-01-08] MEDS: traMADol HCl 50 MG TAB PO PRN ×2 (09:53→23:36)
[2020-01-08] MEDS: Insulin Regular 300 UNITS/3 ML VIAL SC PRN (12:54)
--- NOTE | 2020-01-08 16:22 | PRG ---
DATE OF SERVICE: 01/08/2020 The patient was seen on morning rounds with Dr. Emmanuel Noble. SUBJECTIVE: The patient states he is feeling well, sitting up, tolerating a diet, in no acute distress, urinating. Pain is controlled. No respiratory distress. Of note, the patient's creatinine has increased slightly. OBJECTIVE: VITAL SIGNS: Today, temperature 98.2, blood pressure 135/77, heart rate is 91, breathing 14 times per minute, 96% on room air. GENERAL: A 64-year-old male, sitting up, in no acute distress. HEENT: Normocephalic and atraumatic. RESPIRATORY: Equal rise and fall. No respiratory distress. CARDIOVASCULAR: Regular rate and rhythm. ABDOMEN: Soft. PELVIS: Stable. MUSCULOSKELETAL: He is able to move extremities. Good sensation in all extremities. NEUROLOGIC: Alert and oriented to person, place, time, and event. PSYCHIATRIC: Normal mood and affect. DIAGNOSTIC CRITERIA: Today, white blood cell count of 9.8, platelets 239, hemoglobin and hematocrit 11.9 and 37.7 respectively. Chemistry; sodium 134, potassium 4.5, chloride 102, CO2 is 23, BUN is 44, creatinine 3.14, glucose 164, phos is 4.6, and mag of 2.2. ASSESSMENT: 1. Mechanical fall. 2. Right femoral neck fracture, status post open reduction and internal fixation. 3. Acute traumatic pain. 4. Acute on chronic kidney disease. 5. History of coronary artery disease, automatic implantable cardioverter-defibrillator, systolic heart failure with EF of 20% to 25%. 6. Type 2 diabetes. PLAN: 1. We will continue with pain regimen. 2. Continue to work with PT. 3. Rehab screen has been placed. Hope for disposition in the next couple of days. Discussed with case management. 4. Continue Lasix now 40 mg b.i.d. as his home dose. 5. We will repeat his BMP in the morning. Continue all other supportive care. I updated the patient at the bedside and answered all questions. Job ID: [id number]
[2020-01-08] MEDS: Amlodipine 5 MG TAB PO SCH (20:36)
[2020-01-08] MEDS: Atorvastatin Calcium 40 MG TAB PO SCH (20:37)
--- NOTE | 2020-01-09 01:26 | PRG ---
DATE OF SERVICE: 01/08/2020 SUBJECTIVE: The patient was seen this evening during rounds. He was lying in bed and awake and alert. He reported he was having increased pain in his right hip and it was time for pain medications. Nursing was asked to provide the patient with Tylenol and tramadol. OBJECTIVE: VITAL SIGNS: Temperature 98.8, pulse 71, respirations 18, oxygen saturation 98% on room air, and blood pressure 158/71. GENERAL: Well-appearing elderly male, lying in bed with no signs of acute distress. PULMONARY: Equal chest rise and fall. Clear breath sounds bilaterally. No signs of acute respiratory distress. ASSESSMENT: 1. Status post mechanical fall on Eliquis. 2. Right femoral neck fracture, status post repair. 3. Acute kidney injury on chronic kidney disease. 4. History of ERCP, atrial fibrillation, coronary artery disease, hypertension, and diabetes. PLAN: Continue current diet and pain regimen. Continue physical and occupational therapy. Provide pain medications this evening by nurse. SCDs to be placed as well. The patient is pending discharge to acute rehab facility. He is ready for discharge at this time. Job ID: [id number] MTDD
[2020-01-09 05:13] LABS: Hemoglobin 12.2 g/dL (14.0-18.0); Mean Corpuscular HGB CONC 31.8 g/dL (32.0-36.0); Mean Corpuscular Hemoglobin 30.6 pg (27.0-31.0); Mean Corpuscular Volume 96.3 fL (78.0-98.0); Mean Platelet Volume 7.4 fL (7.4-10.4); Platelet Count 262 thou/uL (130-400); RBC Distribution Width 12.2 % (11.5-14.5); Red Blood Cell (RBC) Count 3.97 mill/uL (4.70-6.10); White Blood Cell (WBC) Count 6.8 thou/uL (4.8-10.8)
[2020-01-09 05:32] LABS: Anion Gap 12 mmol/L (10-20); BUN (Urea Nitrogen) 42 mg/dL (8.4-25.7); Calc. Creatinine Clearance 31 mL/min (70-130); Calcium 8.1 mg/dL (7.8-10.44); Carbon Dioxide 24 mmol/L (23-31); Chloride 106 mmol/L (98-107); Estimated GFR-MDRD 28; Glucose 122 mg/dL (80-115); Magnesium 2.1 mg/dL (1.6-2.6); Sodium 138 mmol/L (136-145)
[2020-01-09 05:39] LABS: Phosphorus 2.6 mg/dL (2.3-4.7)
[2020-01-09] MEDS: Acetaminophen 500 MG TAB PO SCH ×4 (06:26→23:00)
[2020-01-09] MEDS: Losartan 25 MG TAB PO SCH (09:55)
[2020-01-09] MEDS: hydrALAZINE 25 MG TAB PO SCH ×3 (09:56→20:16)
[2020-01-09] MEDS: Carvedilol 25 MG TAB PO SCH ×2 (09:57→20:18)
[2020-01-09] MEDS: Apixaban 5 MG TAB PO SCH ×2 (09:57→20:17)
[2020-01-09] MEDS: Furosemide 40 MG TAB PO SCH ×2 (09:58→20:15)
[2020-01-09] MEDS: cloNIDine 0.1 MG TAB PO SCH ×2 (09:58→20:18)
[2020-01-09] MEDS: Digoxin 0.125 MG TAB PO SCH (10:00)
[2020-01-09] MEDS: Potassium Chloride 10 MEQ TAB PO SCH ×2 (10:00→20:17)
[2020-01-09] MEDS: Senokot S 8.6-50 MG TAB PO SCH ×2 (10:01→20:18)
[2020-01-09] MEDS: Polyethylene Glycol 3350 17 GM Packet PO SCH (10:01)
[2020-01-09] MEDS: traMADol HCl 50 MG TAB PO PRN ×2 (11:24→22:47)
--- NOTE | 2020-01-09 17:32 | PRG ---
DATE OF SERVICE: 01/09/2020 This is Zenaida Shea NP dictating a report for Dr. Noble. SUBJECTIVE: The patient was seen during morning rounds with Dr. Noble. The patient was awake, alert, and denied any pain. The patient walked approximately 380 feet with physical therapy yesterday. The patient has not yet worked with physical therapy today. The patient has not had anything for pain other than Tylenol. The patient is tolerating a diabetic heart healthy diet. The patient is postop day #3 right total hip arthroplasty. OBJECTIVE: VITAL SIGNS: Temperature 98.3, pulse 78, respirations 16, SpO2 of 95% on room air, blood pressure 151/88. GENERAL: Well-appearing elderly male, lying in hospital bed, in no acute distress. PULMONARY: Equal chest rise and fall, breath sounds are clear, no respiratory distress. CARDIAC: Regular rate, regular rhythm. EXTREMITIES: Moves all extremities, no focal deficits. NEUROLOGIC: GCS 15. No focal deficits. LABORATORY DATA: WBC 3.97, RBC 12.2, hematocrit 38.3, platelets 262. Sodium 138, potassium 4.0, BUN 42, creatinine 2.81, estimated GFR 28, glucose 122, calcium 8.1, phosphorus 2.6, magnesium 2.1. DIAGNOSTICS: There is no new diagnostics to review today. ASSESSMENT: 1. Status post mechanical fall, on Eliquis. 2. Right femoral neck fracture, postop day #3. 3. Acute kidney injury on chronic kidney disease, improving. 4. History of ERCP, atrial fibrillation, coronary artery disease, hypertension, and diabetes. PLAN: Continue current diet and pain regimen. Continue physical and occupational therapy. Continue Eliquis for chemical VTE prophylaxis. Continue to monitor the patient's blood pressure as it has been elevated. The patient has been restarted on his home blood pressure medications. We will re-evaluate tomorrow and see if adjustments need to be made. We will repeat labs to evaluate renal function in the morning. The patient is pending placement to inpatient rehab pending insurance authorization. The plan was discussed with the patient. The patient was examined by Dr. Noble during morning rounds. Job ID: [id number]
[2020-01-09] MEDS: Atorvastatin Calcium 40 MG TAB PO SCH (20:15)
[2020-01-09] MEDS: Amlodipine 5 MG TAB PO SCH (20:18)
[2020-01-09] MEDS: Cyclobenzaprine 10 MG TAB PO PRN (22:46)
--- NOTE | 2020-01-10 00:54 | PRG ---
DATE OF SERVICE: 01/09/2020 SUBJECTIVE: The patient was seen this evening during rounds. He was lying in bed and resting. He reported he had asked nursing for pain medication. Upon my evaluation, he complained of right-sided hip pain. Nursing to provide the patient with tramadol, Tylenol and Flexeril. OBJECTIVE: VITAL SIGNS: Temperature 98.6, pulse 77, respirations 18, oxygen saturation 98% on room air, blood pressure 150/68. GENERAL: Well-appearing elderly male, lying in bed with no signs of acute distress. PULMONARY: Equal chest rise and fall. No signs of acute respiratory distress. ASSESSMENT: 1. Status post mechanical fall from standing, on Eliquis. 2. Right femoral neck fracture, status post repair. 3. Acute kidney injury on chronic kidney disease, improving. 4. History of atrial fibrillation, coronary artery disease, hypertension, diabetes, and automatic implantable cardioverter defibrillator placement. PLAN: Continue current diet and pain regimen. Continue physical and occupational therapy. The patient is pending placement at acute rehab facility. He is ready for discharge at this time. Job ID: [id number]
[2020-01-10] MEDS: Acetaminophen 500 MG TAB PO SCH ×2 (05:38→11:41)
[2020-01-10] MEDS: Potassium Chloride 10 MEQ TAB PO SCH (08:11)
[2020-01-10] MEDS: Cyclobenzaprine 10 MG TAB PO PRN (08:11)
[2020-01-10] MEDS: Furosemide 40 MG TAB PO SCH (08:12)
[2020-01-10] MEDS: hydrALAZINE 25 MG TAB PO SCH (08:12)
[2020-01-10] MEDS: Losartan 25 MG TAB PO SCH (08:12)
[2020-01-10] MEDS: cloNIDine 0.1 MG TAB PO SCH (08:12)
[2020-01-10] MEDS: Carvedilol 25 MG TAB PO SCH (08:13)
[2020-01-10] MEDS: Senokot S 8.6-50 MG TAB PO SCH (08:13)
[2020-01-10] MEDS: Polyethylene Glycol 3350 17 GM Packet PO SCH (08:13)
[2020-01-10] MEDS: Apixaban 5 MG TAB PO SCH (08:13)
[2020-01-10] MEDS: Digoxin 0.125 MG TAB PO SCH (08:13)
[2020-01-10] MEDS ORDERED: Amlodipine 10 MG TAB PO SCH (09:00)
[2020-01-10 11:10] VITALS: BP 170/73; TEMP 98
== END 2020-01-10 13:40 | disposition home health service (06) | DRG 470 ==
LOC: ERS 02:42 → SURG A 05:39
PROVIDERS: ADMIT Internal Medicine; ATTEND Orthopaedic Surgery
PROC: 0SR904Z Replacement of Right Hip Joint with Ceramic on Polyethylene Synthetic Substitute, Open Approach (ICD-10-PCS; principal; 2020-01-06)
DX: S72.001A Fracture of unspecified part of neck of right femur, initial encounter for closed fracture (principal); I13.0 Hypertensive heart and chronic kidney disease with heart failure and stage 1 through stage 4 chronic kidney disease, or unspecified chronic kidney disease; N17.9 Acute kidney failure, unspecified; I50.22 Chronic systolic (congestive) heart failure; I25.10 Atherosclerotic heart disease of native coronary artery without angina pectoris; I48.91 Unspecified atrial fibrillation; E78.5 Hyperlipidemia, unspecified; J44.9 Chronic obstructive pulmonary disease, unspecified; W01.0XXA Fall on same level from slipping, tripping and stumbling without subsequent striking against object, initial encounter; E11.22 Type 2 diabetes mellitus with diabetic chronic kidney disease; F17.210 Nicotine dependence, cigarettes, uncomplicated; Z79.01 Long term (current) use of anticoagulants; Z95.810 Presence of automatic (implantable) cardiac defibrillator; I25.2 Old myocardial infarction; Z95.5 Presence of coronary angioplasty implant and graft; Z79.899 Other long term (current) drug therapy; Z20.828 Contact with and (suspected) exposure to other viral communicable diseases
CPT/HCPCS: 36415; 36416; 72170; 80048; 83735; 83880; 84100; 85025; 85027; 85610; 85730; 86850; 86900; 86901; 87635; 93005; 94640; G0390; J0360; J0670; J0690; J1100; J1815; J2270; J2370; J2405; J2704; J3010; J3370; J3475; J3490; J7050; J7620; U0003

== ENCOUNTER 2020-04-10 20:38 | Inpatient (IN) | payer OTHER ==
--- NOTE | 2020-04-10 21:39 | RAD ---
EXAM: Single view of the chest HISTORY: Shortness of breath and edema COMPARISON: 12/17/2019 FINDINGS: Single view of the chest shows an enlarged but stable cardiomediastinal silhouette. Athero sclerotic calcifications are seen in the aorta. The pacemaker is unchanged in position. Slight blunting of the right costophrenic angle may represent a small pleural effusion. No focal infiltrates are seen. Degenerative changes are seen in the spine. IMPRESSION: Cardiomegaly and small right pleural effusion
[2020-04-10 22:20] LABS: #Eosinphils 0.1 thou/uL (0.0-0.7); #Lymphocytes 1.5 thou/uL (1.20-3.40); #Monocytes 0.7 thou/uL (0.11-0.59); #Neutrophils 4.5 thou/uL (1.40-6.50); %Basophils 0.5 % (0.0-1.0); %Eosinophils 1.3 % (0.0-10.0); %Lymphocytes 21.6 % (21.0-51.0); %Neutrophils 66.6 % (42.0-75.0); Hemoglobin 9.3 g/dL (14.0-18.0); Mean Corpuscular HGB CONC 31.9 g/dL (32.0-36.0); Mean Corpuscular Hemoglobin 30.5 pg (27.0-31.0); Mean Corpuscular Volume 95.6 fL (78.0-98.0); Mean Platelet Volume 6.7 fL (7.4-10.4); Platelet Count 293 thou/uL (130-400); RBC Distribution Width 14.2 % (11.5-14.5); Red Blood Cell (RBC) Count 3.07 mill/uL (4.70-6.10); White Blood Cell (WBC) Count 6.8 thou/uL (4.8-10.8)
[2020-04-10 22:45] LABS: ALT (SGPT) 25 U/L (8-55); AST (SGOT) 25 U/L (5-34); Albumin 2.6 g/dL (3.4-4.8); Alkaline Phosphatase 79 U/L (40-110); Anion Gap 14 mmol/L (10-20); BUN (Urea Nitrogen) 46 mg/dL (8.4-25.7); Bilirubin, Total 0.2 mg/dL (0.2-1.2); Calc. Creatinine Clearance 0 mL/min (70-130); Carbon Dioxide 24 mmol/L (23-31); Chloride 110 mmol/L (98-107); Globulin 3.8 g/dL (2.4-3.5); Glucose 110 mg/dL (80-115); Potassium 3.9 mmol/L (3.5-5.1); Protein, Total 6.4 g/dL (5.8-8.1); Sodium 144 mmol/L (136-145)
[2020-04-10 23:08] LABS: CKMB 4.6 ng/mL (0-6.6)
[2020-04-10] MEDS ORDERED: Furosemide 40 MG/4 ML VIAL ONE (23:09)
--- NOTE | 2020-04-11 00:23 | PDOC.HHP ---
Hospitalist HPI - History of Present Illness Shortness of breath History of Present Illness: This is a 64-year-old male patient with a history of GERD, atrial fibrillation on Eliquis, carotid artery disease, stents x1, with AICD, diabetes mellitus, hypertension, COPD and CHF who presents with bilateral lower limb edema and shortness of breath of about 2 weeks duration. Symptoms are getting worse leading him to come to the ED for further evaluation. At the time of my evaluation he was sleeping and on waking up was still drowsy. His history is generally poor. He denies any associated cough chest pain or fevers. He notes he has been intermittently missing his medication given he is homeless and is unable to always get his medications. At presentation his blood pressure was 120/60, pulse 72, respiratory 24, temp 97.9 and saturation at 97% on room air. Labs showed hemoglobin of 9.3 from a baseline of 10.52 weeks ago. Creatinine was 3.86 around his baseline. Troponin was slightly elevated at 0.037 however BNP was significantly elevated on 1405.7. X-ray showed cardiomegaly with small right pleural effusion. He was given 40 mg IV Lasix with improvement in his symptoms. Hospitalist team consulted for admission. Hospitalist ROS - Review of Systems Constitutional: denies: fever, chills, sweats Eyes: denies: pain, vision change, conjunctivae inflammation Respiratory: reports: shortness of breath, SOB with excertion. denies: cough, hemoptysis Cardiovascular: denies: chest pain, palpitations, orthopnea, paroxysmal noc. dyspnea Genitourinary: denies: dysuria, frequency, incontinence Musculoskeletal: denies: neck pain, shoulder pain Neurological: denies: weakness, numbness Hospitalist History - Past Medical History Other Medical History: Carotid artery disease, heart failure, CKD, - Past Surgical History Other Surgical History: AICD placement, - Family History Family History: reports: no pertinent history - Social History Living Situation: Homeless Activity level: independent ambulation - Exam General - other findings: Awake alert but sleepy. ENT: normocephalic atraumatic, no oropharyngeal lesions Heart: RRR, no murmur, no gallops, no rubs Respiratory - other findings: Reduced air entry bilaterally. No rhonchi or wheeze. Gastrointestinal: soft, non-tender, non-distended, normal bowel sounds Extremities: no cyanosis, no clubbing, 1+ LE edema Neurological: cranial nerve grossly intact, no focal deficits Psychiatric: normal affect, normal behavior Hospitalist Results - Labs Result Diagrams: 04/11/20 05:23 04/11/20 05:23 Lab results: WBC 6.8 thou/uL (4.8-10.8) 04/10/20 21:50 Hgb 9.3 g/dL (14.0-18.0) L 04/10/20 21:50 Hct 29.3 % (42.0-52.0) L 04/10/20 21:50 MCV 95.6 fL (78.0-98.0) 04/10/20 21:50 Plt Count 293 thou/uL (130-400) 04/10/20 21:50 Neutrophils % 66.6 % (42.0-75.0) 04/10/20 21:50 Sodium 144 mmol/L (136-145) 04/10/20 21:50 Potassium 3.9 mmol/L (3.5-5.1) 04/10/20 21:50 Chloride 110 mmol/L (98-107) H 04/10/20 21:50 Carbon Dioxide 24 mmol/L (23-31) 04/10/20 21:50 BUN 46 mg/dL (8.4-25.7) H 04/10/20 21:50 Creatinine 3.86 mg/dL (0.7-1.3) H 04/10/20 21:50 Glucose 110 mg/dL (80-115) 04/10/20 21:50 Calcium 8.0 mg/dL (7.8-10.44) 04/10/20 21:50 Total Bilirubin 0.2 mg/dL (0.2-1.2) 04/10/20 21:50 AST 25 U/L (5-34) 04/10/20 21:50 ALT 25 U/L (8-55) 04/10/20 21:50 Alkaline Phosphatase 79 U/L (40-110) 04/10/20 21:50 CK-MB (CK-2) 4.6 ng/mL (0-6.6) 04/10/20 21:50 Troponin I 0.035 ng/mL (< 0.028) H 04/10/20 21:50 B-Natriuretic Peptide 1405.7 pg/mL (0-100) H 04/10/20 21:50 Serum Total Protein 6.4 g/dL (5.8-8.1) 04/10/20 21:50 Albumin 2.6 g/dL (3.4-4.8) L 04/10/20 21:50 Hospitalist H&P A/P - Plan Plan: This is a 64-year-old male patient with a history of coronary artery disease status post stent, heart failure, COPD CKD presenting with worsening shortness of breath and edema concerning for acute heart failure exacerbation. Heart failure exacerbation Elevated BNP, shortness of breath and edema Diuresed with improvement We will admit for further diuresis Monitor electrolytes Daily weights Low-salt diet Cardiac consult in a.m. Hypertension Resume home medications when verified CKD Avoid nephrotoxic agents A. fib Resume Eliquis once verified. Diabetes mellitus Start correctional insulin CODE STATUSfull code VT prophylaxisresume elequis once verified
[2020-04-11] MEDS ORDERED: Dextrose 50% Abboject 50 ML SYRINGE SLOW IVP PRN (01:50)
[2020-04-11] MEDS ORDERED: Dextrose 5% in Water 1,000 ML IV PRN (01:50)
[2020-04-11 03:31] VITALS: BMI 34.1
[2020-04-11 05:37] LABS: #Eosinphils 0.1 thou/uL (0.0-0.7); #Lymphocytes 1.1 thou/uL (1.20-3.40); #Monocytes 0.6 thou/uL (0.11-0.59); #Neutrophils 3.3 thou/uL (1.40-6.50); %Basophils 0.2 % (0.0-1.0); %Eosinophils 1.4 % (0.0-10.0); %Lymphocytes 21.5 % (21.0-51.0); %Monocytes 11.1 % (0.0-10.0); %Neutrophils 65.8 % (42.0-75.0); Mean Corpuscular HGB CONC 31.5 g/dL (32.0-36.0); Mean Corpuscular Hemoglobin 30.3 pg (27.0-31.0); Mean Corpuscular Volume 96.4 fL (78.0-98.0); Mean Platelet Volume 6.6 fL (7.4-10.4); Platelet Count 287 thou/uL (130-400); RBC Distribution Width 14.2 % (11.5-14.5); Red Blood Cell (RBC) Count 2.96 mill/uL (4.70-6.10); White Blood Cell (WBC) Count 5.1 thou/uL (4.8-10.8)
[2020-04-11] MEDS: Nicotine 14 MG PATCH TD SCH (05:58)
[2020-04-11 06:01] LABS: Anion Gap 11 mmol/L (10-20); BUN (Urea Nitrogen) 49 mg/dL (8.4-25.7); Calc. Creatinine Clearance 27 mL/min (70-130); Calcium 7.7 mg/dL (7.8-10.44); Carbon Dioxide 27 mmol/L (23-31); Chloride 110 mmol/L (98-107); Glucose 142 mg/dL (80-115); Potassium 3.9 mmol/L (3.5-5.1); Sodium 144 mmol/L (136-145)
[2020-04-11 08:52] LABS: Troponin I 0.033 ng/mL (< 0.028)
[2020-04-11] MEDS ORDERED: Furosemide 40 MG/4 ML VIAL SLOW IVP SCH (09:00)
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
[2020-04-11] MEDS: hydrALAZINE 25 MG TAB PO SCH ×2 (14:18→20:28)
[2020-04-11] MEDS: Isosorbide Dinitrate 20 MG TAB PO SCH ×2 (14:18→20:28)
--- NOTE | 2020-04-11 15:45 | PDOC.HOSPP ---
- Subjective Encounter Date: 04/11/20 Encounter Time: 15:42 Subjective: Mr. Abad is a 64-year-old patient whose medical history includes coronary disease and severe ischemic cardiomyopathy. He does have an AICD in place. He reportedly presented to the hospital due to significantly worsening shortness of breath and he was admitted for CHF exacerbation. Other pertinent medical history includes chronic atrial fibrillation on anticoagulation. His echo showed severely decreased EF at 25% and severe tricuspid regurgitation. We appreciate cardiology's recommendations. He is back on his regular cardiac medicines. We will continue to diurese him. - Objective Vital Signs & Weight: Vital Signs (12 hours) Temp Pulse Resp BP BP Pulse Ox 04/11/20 14:18 70 180/95 H 04/11/20 11:14 97.9 F 70 20 159/83 H 97 04/11/20 08:00 95 04/11/20 07:39 97.6 F 73 20 170/87 H 95 04/11/20 04:00 97.6 F 69 18 155/73 H 97 Weight Weight 211 lb 11.2 oz I&O: 04/10/20 04/11/20 04/12/20 06:59 06:59 06:59 Output Total 800 Balance -800 Result Diagrams: 04/11/20 05:23 04/11/20 05:23 Additional Labs: Accuchecks 04/11/20 04/11/20 11:15 05:26 POC Glucose 153 H 132 H Radiology Reviewed by me: Yes EKG Reviewed by me: Yes Hospitalist ROS - Review of Systems Respiratory: reports: shortness of breath, SOB with excertion Cardiovascular: reports: paroxysmal noc. dyspnea, edema Gastrointestinal: reports: nausea Neurological: reports: weakness - Medication Medications: Active Medications Generic Name Dose Route Start Last Admin Trade Name Freq PRN Reason Stop Dose Admin Hydralazine HCl 25 mg 04/11/20 15:00 04/11/20 14:18 Hydralazine 25 Mg Tab PO 25 mg TID BHARAT Administration Isosorbide Dinitrate 20 mg 04/11/20 15:00 04/11/20 14:18 Isosorbide Dinitrate 20 Mg Tab PO 20 mg TID BHARAT Administration Nicotine 14 mg 04/11/20 04:00 04/11/20 05:58 Nicotine 14 Mg Patch TD 14 mg Q24HR BHARAT Administration - Exam General Appearance: awake alert, ill appearing Eye: PERRL ENT: normocephalic atraumatic Neck: supple, symmetric, no lymphadenopathy, JVD Heart: RRR, no murmur, no gallops Respiratory: normal chest expansion, rales, rhonchi Gastrointestinal: soft, non-tender, non-distended, normal bowel sounds Extremities: 2+ LE edema Neurological: cranial nerve grossly intact, normal sensation to touch Musculoskeletal: normal tone, normal strength, no muscle wasting Psychiatric: normal affect, normal behavior, A&O x 3 Hosp A/P (1) Acute on chronic systolic ACC/AHA stage C congestive heart failure Code(s): I50.23 - ACUTE ON CHRONIC SYSTOLIC (CONGESTIVE) HEART FAILURE Status: Acute (2) Hypertensive urgency Code(s): I16.0 - HYPERTENSIVE URGENCY Status: Acute (3) CAD (coronary artery disease) Code(s): I25.10 - ATHSCL HEART DISEASE OF [place] CORONARY ARTERY W/O ANG PCTRS Status: Chronic (4) Dyslipidemia Code(s): E78.5 - HYPERLIPIDEMIA, UNSPECIFIED Status: Chronic (5) Tobacco abuse Code(s): Z72.0 - TOBACCO USE Status: Chronic - Plan old records reviewed/req, PT/OT #1. Acute on chronic systolic heart failure exacerbation with decreased ejection fraction. Likely secondary to mixed diastolic and systolic dysfunction. He is responding to diuretics. We will continue this for now. 2. Ischemic cardiomyopathy. He does have an AICD in place. 3. Chronic atrial fibrillation. Continue Eliquis. 4. CKD at least stage IV. We will monitor his renal function very close. We will avoid NSAIDs, EDISON inhibitors and ARB's. 5. Hypertensive heart and chronic kidney disease. We will restart his medications and hopefully get his blood pressure controlled.
[2020-04-11] MEDS: Carvedilol 6.25 MG TAB PO SCH (16:41)
[2020-04-11] MEDS: Apixaban 5 MG TAB PO SCH (20:27)
[2020-04-11] MEDS: glipiZIDE 10 MG TAB PO SCH (20:28)
[2020-04-11] MEDS: Atorvastatin Calcium 40 MG TAB PO SCH (20:28)
[2020-04-12] MEDS ORDERED: Mag-Al 1200 mg/1200 mg/30 ML UDCUP PO PRN (00:16)
[2020-04-12] MEDS ORDERED: Famotidine 20 MG TAB PO SCH (00:30)
[2020-04-12 05:02] LABS: #Eosinphils 0.1 thou/uL (0.0-0.7); #Lymphocytes 1.4 thou/uL (1.20-3.40); #Monocytes 0.7 thou/uL (0.11-0.59); #Neutrophils 4.1 thou/uL (1.40-6.50); %Eosinophils 2.2 % (0.0-10.0); %Lymphocytes 22.1 % (21.0-51.0); %Monocytes 10.5 % (0.0-10.0); %Neutrophils 65.2 % (42.0-75.0); Hemoglobin 9.4 g/dL (14.0-18.0); Mean Corpuscular Hemoglobin 29.5 pg (27.0-31.0); Mean Corpuscular Volume 98.4 fL (78.0-98.0); Mean Platelet Volume 6.6 fL (7.4-10.4); Platelet Count 304 thou/uL (130-400); RBC Distribution Width 14.3 % (11.5-14.5); White Blood Cell (WBC) Count 6.3 thou/uL (4.8-10.8)
[2020-04-12] MEDS: Nicotine 14 MG PATCH TD SCH (05:15)
[2020-04-12 05:19] LABS: Anion Gap 13 mmol/L (10-20); BUN (Urea Nitrogen) 45 mg/dL (8.4-25.7); Calc. Creatinine Clearance 31 mL/min (70-130); Calcium 7.6 mg/dL (7.8-10.44); Carbon Dioxide 25 mmol/L (23-31); Chloride 107 mmol/L (98-107); Glucose 118 mg/dL (80-115); Magnesium 1.8 mg/dL (1.6-2.6); Sodium 141 mmol/L (136-145)
[2020-04-12] MEDS: Digoxin 0.125 MG TAB PO SCH (09:48)
[2020-04-12] MEDS: glipiZIDE 10 MG TAB PO SCH ×2 (09:49→20:07)
[2020-04-12] MEDS: Carvedilol 6.25 MG TAB PO SCH ×2 (09:58→16:07)
[2020-04-12] MEDS: hydrALAZINE 25 MG TAB PO SCH ×4 (09:58→20:08)
[2020-04-12] MEDS: Furosemide 40 MG TAB PO SCH ×2 (09:58→16:07)
[2020-04-12] MEDS: Apixaban 5 MG TAB PO SCH ×2 (09:58→20:08)
[2020-04-12] MEDS: Isosorbide Dinitrate 20 MG TAB PO SCH ×3 (09:59→20:08)
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
[2020-04-12] MEDS: Fluticasone Propionate Nasal Spray 16 gm Bottle NASAL PRN (18:28)
[2020-04-12] MEDS: Atorvastatin Calcium 40 MG TAB PO SCH (20:07)
[2020-04-12] MEDS: Famotidine 20 MG TAB PO SCH (20:08)
[2020-04-12] MEDS: Tamsulosin HCl 0.4 MG CAP PO SCH (20:08)
[2020-04-13] MEDS: Nicotine 14 MG PATCH TD SCH (03:17)
[2020-04-13] MEDS: Fluticasone Propionate Nasal Spray 16 gm Bottle NASAL PRN ×2 (03:18→14:56)
[2020-04-13 05:22] LABS: #Eosinphils 0.1 thou/uL (0.0-0.7); #Lymphocytes 1.4 thou/uL (1.20-3.40); #Monocytes 0.7 thou/uL (0.11-0.59); #Neutrophils 4.8 thou/uL (1.40-6.50); %Basophils 0.2 % (0.0-1.0); %Eosinophils 1.8 % (0.0-10.0); %Lymphocytes 19.4 % (21.0-51.0); %Monocytes 9.8 % (0.0-10.0); %Neutrophils 68.9 % (42.0-75.0); Hemoglobin 10.1 g/dL (14.0-18.0); Mean Corpuscular HGB CONC 31.3 g/dL (32.0-36.0); Mean Corpuscular Hemoglobin 30.9 pg (27.0-31.0); Mean Corpuscular Volume 98.6 fL (78.0-98.0); Mean Platelet Volume 6.5 fL (7.4-10.4); Platelet Count 305 thou/uL (130-400); RBC Distribution Width 14.1 % (11.5-14.5); Red Blood Cell (RBC) Count 3.26 mill/uL (4.70-6.10)
[2020-04-13 05:38] LABS: Anion Gap 10 mmol/L (10-20); BUN (Urea Nitrogen) 42 mg/dL (8.4-25.7); Calc. Creatinine Clearance 32 mL/min (70-130); Calcium 7.9 mg/dL (7.8-10.44); Carbon Dioxide 31 mmol/L (23-31); Chloride 106 mmol/L (98-107); Glucose 137 mg/dL (80-115); Potassium 3.8 mmol/L (3.5-5.1); Sodium 143 mmol/L (136-145)
[2020-04-13] MEDS: glipiZIDE 10 MG TAB PO SCH ×2 (08:49→20:17)
[2020-04-13] MEDS: hydrALAZINE 25 MG TAB PO SCH ×3 (08:49→20:16)
[2020-04-13] MEDS: Furosemide 40 MG TAB PO SCH ×2 (08:50→14:53)
[2020-04-13] MEDS: Isosorbide Dinitrate 20 MG TAB PO SCH ×3 (08:50→20:17)
[2020-04-13] MEDS: Apixaban 5 MG TAB PO SCH ×2 (08:50→20:17)
[2020-04-13] MEDS: Carvedilol 6.25 MG TAB PO SCH ×2 (08:50→16:22)
[2020-04-13] MEDS: Digoxin 0.125 MG TAB PO SCH (08:50)
[2020-04-13] MEDS: HumaLOG 300 UNITS/3 ML VIAL SC PRN ×2 (11:19→18:19)
[2020-04-13] MEDS: cloNIDine 0.2 MG TAB PO SCH ×2 (14:54→20:16)
--- NOTE | 2020-04-13 16:41 | PDOC.HOSPP ---
- Subjective Encounter Date: 04/13/20 Encounter Time: 07:00 Subjective: Pt seen for followup re: CHF exacerbation. Feels better. - Objective Vital Signs & Weight: Vital Signs (12 hours) Temp Pulse Resp BP BP BP Pulse Ox 04/13/20 16:00 97.7 F 74 18 164/84 H 95 04/13/20 14:54 186/100 H 04/13/20 11:22 97.6 F 76 16 177/85 H 93 L 04/13/20 08:50 72 04/13/20 07:09 98.3 F 84 20 182/85 H 90 L Weight Weight 212 lb 3.2 oz I&O: 04/12/20 04/13/20 04/14/20 06:59 06:59 06:59 Intake Total 570 2093 480 Output Total 1000 500 Balance -430 1593 480 Result Diagrams: 04/13/20 04:51 04/13/20 04:51 Additional Labs: Accuchecks 04/13/20 04/13/20 04/12/20 16:25 11:08 20:06 POC Glucose 76 151 H 128 H Labs and MARs reviewed by me EKG Reviewed by me: Yes (Tele: NSR) Hospitalist ROS - Review of Systems Cardiovascular: denies: chest pain, palpitations, orthopnea, paroxysmal noc. dyspnea, edema, light headedness Gastrointestinal: denies: nausea, vomiting, abdominal pain, diarrhea, constipation, melena, hematochezia - Medication Medications: Active Medications Generic Name Dose Route Start Last Admin Trade Name Freq PRN Reason Stop Dose Admin Al Hydroxide/Mg Hydroxide 30 ml 04/12/20 00:16 04/12/20 01:06 Mag-Al 1200 Mg/1200 Mg/30 Ml Udcup PO 30 ml Q4H PRN Administration Indigestion Apixaban 5 mg 04/11/20 21:00 04/13/20 08:50 Apixaban 5 Mg Tab PO 5 mg BID BHARAT Administration Atorvastatin Calcium 80 mg 04/11/20 21:00 04/12/20 20:07 Atorvastatin Calcium 40 Mg Tab PO 80 mg HS BHARAT Administration Carvedilol 6.25 mg 04/11/20 17:00 04/13/20 16:22 Carvedilol 6.25 Mg Tab PO 6.25 mg BID-WM BHARAT Administration Clonidine 0.2 mg 04/13/20 15:00 04/13/20 14:54 Clonidine 0.2 Mg Tab PO 0.2 mg TID BHARAT Administration Digoxin 0.125 mg 04/12/20 09:00 04/13/20 08:50 Digoxin 0.125 Mg Tab PO 0.125 mg DAILY BHARAT Administration Famotidine 20 mg 04/12/20 21:00 04/12/20 20:08 Famotidine 20 Mg Tab PO 20 mg HS BHARAT Administration Fluticasone Propionate 0 gm 04/12/20 18:04 04/13/20 14:56 Fluticasone Propionate Nasal Gordon 16 Gm Bottle NASAL 1 spr BID PRN Administration Congestion Furosemide 40 mg 04/12/20 09:00 04/13/20 14:53 Furosemide 40 Mg Tab PO 40 mg 0900,1400 BHARAT Administration Glipizide 5 mg 04/11/20 21:00 04/13/20 08:49 Glipizide 10 Mg Tab PO 5 mg BID BHARAT Administration Hydralazine HCl 50 mg 04/12/20 15:00 04/13/20 14:53 Hydralazine 25 Mg Tab PO 50 mg TID BHARAT Administration Insulin Human Lispro 0 units 04/11/20 01:50 04/13/20 11:19 Humalog 300 Units/3 Ml Vial SC 2 unit .MILD SLIDING SCALE PRN Administration Mild Correctional Scale Isosorbide Dinitrate 20 mg 04/11/20 15:00 04/13/20 14:53 Isosorbide Dinitrate 20 Mg Tab PO 20 mg TID BHARAT Administration Nicotine 14 mg 04/11/20 04:00 04/13/20 03:17 Nicotine 14 Mg Patch TD 14 mg Q24HR BHARAT Administration Tamsulosin HCl 0.4 mg 04/12/20 21:00 04/12/20 20:08 Tamsulosin Hcl 0.4 Mg Cap PO 0.4 mg HS BHARAT Administration - Exam General - other findings: Obese Eye: anicteric sclera ENT: moist mucosa Neck: supple Heart: RRR Respiratory: CTAB Gastrointestinal: soft, non-tender Skin: no rashes Psychiatric: normal affect, normal behavior Hosp A/P - Plan -Assessment (1) Acute on chronic systolic ACC/AHA stage C congestive heart failure Code(s): I50.23 - ACUTE ON CHRONIC SYSTOLIC (CONGESTIVE) HEART FAILURE Status: Acute (2) Hypertensive urgency Code(s): I16.0 - HYPERTENSIVE URGENCY Status: Acute (3) CAD (coronary artery disease) Code(s): I25.10 - ATHSCL HEART DISEASE OF [place] CORONARY ARTERY W/O ANG PCTRS Status: Chronic (4) Dyslipidemia Code(s): E78.5 - HYPERLIPIDEMIA, UNSPECIFIED Status: Chronic (5) Tobacco abuse Code(s): Z72.0 - TOBACCO USE Status: Chronic - Plan #1. Acute on chronic systolic heart failure exacerbation NYHA class III Patient responded well to diuretics, currently on furosemide 40 mg 2 times a day orally. 2. Ischemic cardiomyopathy. AICD in place. 3. Chronic atrial fibrillation. Continue Eliquis. 4. CKD at least stage IV. Avoid EDISON inhibitors and labs. 5. Hypertensive urgency Monitor vital signs and titrate antihypertensives as needed. Clonidine started today.
[2020-04-13] MEDS: Famotidine 20 MG TAB PO SCH (20:16)
[2020-04-13] MEDS: Atorvastatin Calcium 40 MG TAB PO SCH (20:17)
[2020-04-13] MEDS: Tamsulosin HCl 0.4 MG CAP PO SCH (20:17)
[2020-04-13] MEDS: guaiFENesin ER 600 MG TAB PO PRN (23:47)
[2020-04-14] MEDS: Nicotine 14 MG PATCH TD SCH (05:42)
[2020-04-14 07:50] VITALS: TEMP 97.9
[2020-04-14] MEDS: Furosemide 40 MG TAB PO SCH (08:09)
[2020-04-14] MEDS: Apixaban 5 MG TAB PO SCH (08:09)
[2020-04-14] MEDS: Carvedilol 6.25 MG TAB PO SCH (08:09)
[2020-04-14] MEDS: cloNIDine 0.2 MG TAB PO SCH (08:10)
[2020-04-14] MEDS: glipiZIDE 10 MG TAB PO SCH (08:11)
[2020-04-14] MEDS: Digoxin 0.125 MG TAB PO SCH (08:11)
[2020-04-14] MEDS: Isosorbide Dinitrate 20 MG TAB PO SCH (08:12)
[2020-04-14] MEDS ORDERED: hydrALAZINE 25 MG TAB PO SCH (09:00)
[2020-04-14 09:46] VITALS: BP 152/74
[2020-04-14] MEDS: guaiFENesin ER 600 MG TAB PO PRN (11:27)
[2020-04-14] MEDS: HumaLOG 300 UNITS/3 ML VIAL SC PRN (11:28)
--- NOTE | 2020-04-14 12:18 | PDOC.DS.DS ---
Provider - Provider Date of Admission: 04/11/20 00:00 Date of Discharge: 04/14/20 Admitting Provider: Alf Henriquez MD Consultations: Cardiology (Dr. Perez) Primary Care Physician: Theresa Noble Course - Hospital Course Hospital Course: Discharge diagnoses: 1. Acute on chronic systolic and diastolic congestive heart failure exacerbation NYHA class III 2. Hypertensive urgency 3. Ischemic cardiomyopathy 4. Acute hypoxic respiratory failure Hospital course: Patient is a pleasant 64-year-old gentleman who was admitted to the hospital on April 11, 2020 for congestive heart failure exacerbation. He was seen by cardiology service and received intravenous diuretics. 2D echocardiogram showed left ventricular ejection fraction of 25 to 30% and impaired relaxation compatible with diastolic dysfunction. His blood pressure medications were also adjusted because his blood pressures were high. He is being discharged home in a stable condition. Many thanks for allowing me to participate in your patient's care. Please feel free to contact me with any questions or concerns. Discharge destination: Home Total amount of time spent coordinating this discharge: 32 minutes Resuscitation Status: 04/11/20 01:44 Resuscitation Status Routine Resuscitation Status: FULL: Full Resuscitation - Labs Lab Results: 04/13/20 04:51 04/13/20 04:51 Abnormal Lab Results - Last 48 hrs 04/13/20 04:51: BUN 42 H, Creatinine 3.25 H 04/13/20 04:51: RBC 3.26 L, Hgb 10.1 L, Hct 32.2 L, MCV 98.6 H, MCHC 31.3 L, MPV 6.5 L, Lymphocytes % 19.4 L, Monocytes # 0.7 H - Physical Exam Vitals: Vital Signs (12 hours) Temp Pulse Resp BP BP Pulse Ox 04/14/20 11:27 96 04/14/20 09:40 72 152/74 H 04/14/20 08:06 97 04/14/20 07:49 97.9 F 76 20 192/88 H 97 04/14/20 03:44 97.8 F 80 18 178/88 H 96 Weight Weight 205 lb Physical Exam: The patient was seen and examined on the day of discharge. Patient denies chest pain or shortness of breath. Vital signs are stable. S1 and S2 are heard. Lungs are clear to auscultation bilaterally. Plan - Discharge Medications Prescriptions: hydrALAZINE [Apresoline] 75 mg PO TID #270 tab cloNIDine [Catapres] 0.2 mg PO TID #60 tab Carvedilol [Coreg] 6.25 mg PO BID-WM #60 tab Apixaban [Eliquis] 5 mg PO BID #60 tab glipiZIDE [Glucotrol] 5 mg PO BID #60 tab Isosorbide Mononitrate [Imdur ER] 30 mg PO TID #90 tab Digoxin [Lanoxin] 0.125 mg PO DAILY #30 tab Furosemide [Lasix] 40 mg PO DAILY-AC #30 tab Atorvastatin Calcium [Lipitor] 80 mg PO HS #60 tab Famotidine [Pepcid] 20 mg PO BID #60 tab Home Medications: Medication Instructions Recorded Confirmed Type Apixaban [Eliquis] 5 mg PO BID #60 tab 04/14/20 Rx Atorvastatin Calcium [Lipitor] 80 mg PO HS #60 tab 04/14/20 Rx Carvedilol [Coreg] 6.25 mg PO BID-WM #60 tab 04/14/20 Rx Digoxin [Lanoxin] 0.125 mg PO DAILY #30 tab 04/14/20 Rx Famotidine [Pepcid] 20 mg PO BID #60 tab 04/14/20 Rx Furosemide [Lasix] 40 mg PO DAILY-AC #30 tab 04/14/20 Rx Isosorbide Mononitrate [Imdur ER] 30 mg PO TID #90 tab 04/14/20 Rx Nicotine [Nicoderm CQ] 14 mg TD Q24HR patch 04/14/20 Rx cloNIDine [Catapres] 0.2 mg PO TID #60 tab 04/14/20 Rx glipiZIDE [Glucotrol] 5 mg PO BID #60 tab 04/14/20 Rx hydrALAZINE [Apresoline] 75 mg PO TID #270 tab 04/14/20 Rx Allergies: No Known Allergies Allergy (Verified 04/11/20 03:10) - Discharge Instructions Nourishment:: Heart Healthy Diet - Follow up Plan Referrals: Theresa Noble MD [Primary Care Provider] - 3 Days Disposition: HOME
== END 2020-04-14 13:05 | disposition home or self-care (01) | DRG 291 ==
LOC: ERS 20:38 → 2SE 04-11 → UNDOADMIN 04-11 00:01
PROVIDERS: ADMIT Student in an Organized Health Care Education/Training Program; ATTEND Internal Medicine
DX: I13.0 Hypertensive heart and chronic kidney disease with heart failure and stage 1 through stage 4 chronic kidney disease, or unspecified chronic kidney disease (principal); I50.43 Acute on chronic combined systolic (congestive) and diastolic (congestive) heart failure; J96.01 Acute respiratory failure with hypoxia; I48.20 Chronic atrial fibrillation, unspecified; N18.4 Chronic kidney disease, stage 4 (severe); I16.0 Hypertensive urgency; I25.5 Ischemic cardiomyopathy; I25.10 Atherosclerotic heart disease of native coronary artery without angina pectoris; E11.9 Type 2 diabetes mellitus without complications; E78.5 Hyperlipidemia, unspecified; E78.00 Pure hypercholesterolemia, unspecified; K21.9 Gastro-esophageal reflux disease without esophagitis; J44.9 Chronic obstructive pulmonary disease, unspecified; Z79.01 Long term (current) use of anticoagulants; Z59.0 Homelessness; Z95.810 Presence of automatic (implantable) cardiac defibrillator; Z87.891 Personal history of nicotine dependence; Z95.5 Presence of coronary angioplasty implant and graft; I25.2 Old myocardial infarction; Z82.49 Family history of ischemic heart disease and other diseases of the circulatory system; Z79.84 Long term (current) use of oral hypoglycemic drugs; Z79.899 Other long term (current) drug therapy
CPT/HCPCS: 36415; 36416; 71045; 80048; 80053; 82553; 83735; 83880; 84484; 85025; 93005; 93306; 96374; J1940

== ENCOUNTER 2020-06-16 22:23 | Inpatient (IN) | payer OTHER ==
[2020-06-16] MEDS ORDERED: Furosemide 40 MG/4 ML VIAL ONE (23:22)
[2020-06-16 23:54] LABS: #Basophils 0.1 thou/uL (0.0-0.2); #Eosinphils 0.1 thou/uL (0.0-0.7); #Lymphocytes 1.2 thou/uL (1.20-3.40); #Monocytes 0.8 thou/uL (0.11-0.59); #Neutrophils 4.2 thou/uL (1.40-6.50); %Basophils 1.1 % (0.0-1.0); %Eosinophils 1.5 % (0.0-10.0); %Lymphocytes 18.9 % (21.0-51.0); %Monocytes 12.9 % (0.0-10.0); %Neutrophils 65.6 % (42.0-75.0); Hemoglobin 9.9 g/dL (14.0-18.0); Mean Corpuscular HGB CONC 30.7 g/dL (32.0-36.0); Mean Corpuscular Hemoglobin 29.5 pg (27.0-31.0); Mean Platelet Volume 7.1 fL (7.4-10.4); Platelet Count 291 thou/uL (130-400); RBC Distribution Width 13.9 % (11.5-14.5); Red Blood Cell (RBC) Count 3.36 mill/uL (4.70-6.10); White Blood Cell (WBC) Count 6.5 thou/uL (4.8-10.8)
[2020-06-17 00:02] LABS: ALT (SGPT) 18 U/L (8-55); AST (SGOT) 15 U/L (5-34); Albumin 2.8 g/dL (3.4-4.8); Alkaline Phosphatase 78 U/L (40-110); Anion Gap 10 mmol/L (10-20); BUN (Urea Nitrogen) 50 mg/dL (8.4-25.7); Bilirubin, Total 0.2 mg/dL (0.2-1.2); Calc. Creatinine Clearance 0 mL/min (70-130); Calcium 7.9 mg/dL (7.8-10.44); Carbon Dioxide 26 mmol/L (23-31); Chloride 112 mmol/L (98-107); Globulin 4.2 g/dL (2.4-3.5); Glucose 99 mg/dL (80-115); Potassium 5.4 mmol/L (3.5-5.1); Sodium 143 mmol/L (136-145)
[2020-06-17 03:35] LABS: Troponin I 0.032 ng/mL (< 0.028)
[2020-06-17] MEDS ORDERED: Dextrose 5% in Water 1,000 ML IV PRN (04:32)
[2020-06-17] MEDS ORDERED: Dextrose 50% Abboject 50 ML SYRINGE SLOW IVP PRN (04:32)
[2020-06-17 05:42] LABS: Iron 30 ug/dL (65-175); Iron Binding Capacity, Total 253 mcg/dL (261-462)
[2020-06-17 05:45] LABS: Troponin I 0.027 ng/mL (< 0.028)
[2020-06-17 07:57] LABS: Anion Gap 17 mmol/L (10-20); BUN (Urea Nitrogen) 49 mg/dL (8.4-25.7); Calc. Creatinine Clearance 27 mL/min (70-130); Calcium 7.8 mg/dL (7.8-10.44); Carbon Dioxide 19 mmol/L (23-31); Chloride 112 mmol/L (98-107); Glucose 89 mg/dL (80-115); Potassium 5.7 mmol/L (3.5-5.1); Sodium 142 mmol/L (136-145)
[2020-06-17] MEDS ORDERED: Loperamide HCl 2 MG CAP PO PRN (08:35)
[2020-06-17] MEDS ORDERED: Senokot S 8.6-50 MG TAB PO PRN (08:35)
[2020-06-17] MEDS ORDERED: Ondansetron ODT 4 MG TAB PO PRN (08:35)
[2020-06-17] MEDS ORDERED: Sodium Chloride 0.65% Nasal 44 ML BOT EA NARE PRN (08:35)
[2020-06-17] MEDS ORDERED: Calcium Carbonate 500 MG ChewTAB PO PRN (08:35)
[2020-06-17] MEDS ORDERED: Nitroglycerin 0.4 MG TAB (25 Tab Bottle) SL PRN (08:35)
[2020-06-17] MEDS ORDERED: Ondansetron PF 4 MG/2 ML Vial IVP PRN (08:35)
[2020-06-17] MEDS ORDERED: Labetalol HCl 100 MG/20 ML VIAL SLOW IVP PRN (08:35)
[2020-06-17] MEDS ORDERED: Cepastat Lozenges 1 LOZ PO PRN (08:35)
[2020-06-17] MEDS ORDERED: hydrALAZINE 20 MG/ML VIAL SLOW IVP PRN (08:35)
[2020-06-17] MEDS ORDERED: Furosemide 40 MG/4 ML VIAL SLOW IVP SCH (09:00)
[2020-06-17] MEDS ORDERED: Furosemide 80 MG TAB PO SCH (09:15)
[2020-06-17] MEDS: hydrALAZINE 25 MG TAB PO SCH ×3 (09:56→21:11)
[2020-06-17] MEDS: Folic Acid/Vit B Comp W-C PO SCH (09:57)
[2020-06-17] MEDS: Furosemide 80 MG TAB PO SCH (13:07)
[2020-06-17] MEDS: Albuterol 200 PUFF (6.7GM INHALER) INH SCH ×3 (14:04→22:09)
[2020-06-17] MEDS: HYDROcodone/Acetaminophen 5/325 mg Tablet PO PRN (16:04)
[2020-06-17] MEDS: Carvedilol 6.25 MG TAB PO SCH (16:17)
[2020-06-17 16:44] LABS: Anion Gap 14 mmol/L (10-20); BUN (Urea Nitrogen) 50 mg/dL (8.4-25.7); Calc. Creatinine Clearance 26 mL/min (70-130); Carbon Dioxide 24 mmol/L (23-31); Chloride 111 mmol/L (98-107); Glucose 153 mg/dL (80-115); Potassium 5.8 mmol/L (3.5-5.1); Sodium 143 mmol/L (136-145)
[2020-06-17 19:49] LABS: Creatinine, Urine 36.42 mg/dL (63-166)
[2020-06-17] MEDS: cloNIDine 0.1 MG TAB PO SCH (21:10)
[2020-06-17] MEDS: Atorvastatin Calcium 40 MG TAB PO SCH (21:11)
[2020-06-18] MEDS: Albuterol 200 PUFF (6.7GM INHALER) INH SCH ×6 (02:01→22:42)
[2020-06-18] MEDS: HYDROcodone/Acetaminophen 5/325 mg Tablet PO PRN ×2 (03:11→10:08)
[2020-06-18 05:08] LABS: #Eosinphils 0.1 thou/uL (0.0-0.7); #Lymphocytes 1.1 thou/uL (1.20-3.40); #Monocytes 0.7 thou/uL (0.11-0.59); #Neutrophils 4.5 thou/uL (1.40-6.50); %Basophils 0.2 % (0.0-1.0); %Eosinophils 0.9 % (0.0-10.0); %Lymphocytes 16.8 % (21.0-51.0); %Monocytes 10.4 % (0.0-10.0); %Neutrophils 71.6 % (42.0-75.0); Hemoglobin 9.8 g/dL (14.0-18.0); Hypochromia SLIGHT = 6-15 cells (100X) (0-5/hpf); MDiff Complete? YES; Mean Corpuscular HGB CONC 29.7 g/dL (32.0-36.0); Mean Corpuscular Hemoglobin 28.9 pg (27.0-31.0); Mean Corpuscular Volume 97.5 fL (78.0-98.0); Mean Platelet Volume 6.5 fL (7.4-10.4); Platelet Count 281 thou/uL (130-400); RBC Distribution Width 13.8 % (11.5-14.5); Red Blood Cell (RBC) Count 3.38 mill/uL (4.70-6.10); White Blood Cell (WBC) Count 6.3 thou/uL (4.8-10.8)
[2020-06-18 05:14] LABS: Anion Gap 13 mmol/L (10-20); BUN (Urea Nitrogen) 51 mg/dL (8.4-25.7); Calc. Creatinine Clearance 27 mL/min (70-130); Calcium 8.1 mg/dL (7.8-10.44); Carbon Dioxide 23 mmol/L (23-31); Chloride 110 mmol/L (98-107); Glucose 146 mg/dL (80-115); Potassium 5.5 mmol/L (3.5-5.1); Sodium 140 mmol/L (136-145)
[2020-06-18] MEDS: hydrALAZINE 25 MG TAB PO SCH ×3 (10:06→20:47)
[2020-06-18] MEDS: Folic Acid/Vit B Comp W-C PO SCH (10:06)
[2020-06-18] MEDS: Ferrous Sulfate 325 MG TAB PO SCH (10:06)
[2020-06-18] MEDS: Calcitriol 0.25 MCG CAP PO SCH (10:07)
[2020-06-18] MEDS: Furosemide 80 MG TAB PO SCH (10:07)
[2020-06-18] MEDS: cloNIDine 0.1 MG TAB PO SCH ×2 (10:07→20:46)
[2020-06-18] MEDS: Carvedilol 6.25 MG TAB PO SCH ×2 (10:08→17:55)
[2020-06-18] MEDS: Furosemide 100 MG/10 ML VIAL SLOW IVP SCH (14:48)
[2020-06-18] MEDS: HumaLOG 300 UNITS/3 ML VIAL SC PRN (14:53)
[2020-06-18] MEDS: Apixaban 2.5 MG TAB PO SCH (20:46)
[2020-06-18] MEDS: Atorvastatin Calcium 40 MG TAB PO SCH (20:47)
[2020-06-19] MEDS: Albuterol 200 PUFF (6.7GM INHALER) INH SCH ×6 (02:33→22:30)
[2020-06-19] MEDS: Furosemide 100 MG/10 ML VIAL SLOW IVP SCH ×2 (05:47→14:13)
[2020-06-19 05:49] LABS: Anion Gap 15 mmol/L (10-20); BUN (Urea Nitrogen) 52 mg/dL (8.4-25.7); Calc. Creatinine Clearance 27 mL/min (70-130); Calcium 8.2 mg/dL (7.8-10.44); Carbon Dioxide 21 mmol/L (23-31); Chloride 108 mmol/L (98-107); Glucose 122 mg/dL (80-115); Phosphorus 5.2 mg/dL (2.3-4.7); Potassium 5.1 mmol/L (3.5-5.1); Sodium 139 mmol/L (136-145)
[2020-06-19 05:58] LABS: #Eosinphils 0.1 thou/uL (0.0-0.7); #Lymphocytes 1.2 thou/uL (1.20-3.40); #Monocytes 0.7 thou/uL (0.11-0.59); #Neutrophils 5.1 thou/uL (1.40-6.50); %Basophils 0.3 % (0.0-1.0); %Eosinophils 1.8 % (0.0-10.0); %Lymphocytes 16.9 % (21.0-51.0); %Monocytes 10.1 % (0.0-10.0); %Neutrophils 70.8 % (42.0-75.0); Hemoglobin 10.2 g/dL (14.0-18.0); Mean Corpuscular HGB CONC 29.4 g/dL (32.0-36.0); Mean Corpuscular Volume 98.5 fL (78.0-98.0); Mean Platelet Volume 6.5 fL (7.4-10.4); Platelet Count 296 thou/uL (130-400); RBC Distribution Width 13.8 % (11.5-14.5); Red Blood Cell (RBC) Count 3.53 mill/uL (4.70-6.10); White Blood Cell (WBC) Count 7.2 thou/uL (4.8-10.8)
[2020-06-19] MEDS: Apixaban 2.5 MG TAB PO SCH ×2 (08:46→20:54)
[2020-06-19] MEDS: hydrALAZINE 25 MG TAB PO SCH ×3 (08:46→20:54)
[2020-06-19] MEDS: Ferrous Sulfate 325 MG TAB PO SCH (08:46)
[2020-06-19] MEDS: Folic Acid/Vit B Comp W-C PO SCH (08:47)
[2020-06-19] MEDS: Carvedilol 6.25 MG TAB PO SCH ×2 (08:47→18:19)
[2020-06-19] MEDS: Calcitriol 0.25 MCG CAP PO SCH (08:47)
[2020-06-19] MEDS: cloNIDine 0.1 MG TAB PO SCH (08:47)
[2020-06-19] MEDS: HYDROcodone/Acetaminophen 5/325 mg Tablet PO PRN (08:52)
[2020-06-19] MEDS: HumaLOG 300 UNITS/3 ML VIAL SC PRN (14:14)
[2020-06-19] MEDS: Albumin 25% 25 GM/100 ML BOT IVPB SCH ×2 (18:19→23:18)
[2020-06-19] MEDS: Atorvastatin Calcium 40 MG TAB PO SCH (20:54)
[2020-06-19] MEDS: Isosorbide Dinitrate 20 MG TAB PO SCH (20:54)
[2020-06-19] MEDS: DOBUTamine 500 mg/250 ml 500 MG in Premix Bag 1 BAG IVPB SCH (20:59)
[2020-06-20] MEDS: Albuterol 200 PUFF (6.7GM INHALER) INH SCH ×6 (05:09→21:55)
[2020-06-20] MEDS: Isosorbide Dinitrate 20 MG TAB PO SCH ×3 (05:32→20:19)
[2020-06-20] MEDS: Albumin 25% 25 GM/100 ML BOT IVPB SCH ×3 (05:32→17:03)
[2020-06-20] MEDS: hydrALAZINE 25 MG TAB PO SCH ×3 (05:32→20:18)
[2020-06-20] MEDS: Furosemide 100 MG/10 ML VIAL SLOW IVP SCH ×2 (05:33→14:56)
[2020-06-20 05:59] LABS: ALT (SGPT) 12 U/L (8-55); AST (SGOT) 11 U/L (5-34); Albumin 2.9 g/dL (3.4-4.8); Alkaline Phosphatase 68 U/L (40-110); Anion Gap 12 mmol/L (10-20); BUN (Urea Nitrogen) 51 mg/dL (8.4-25.7); Bilirubin, Total 0.4 mg/dL (0.2-1.2); Calc. Creatinine Clearance 27 mL/min (70-130); Calcium 7.9 mg/dL (7.8-10.44); Carbon Dioxide 24 mmol/L (23-31); Chloride 107 mmol/L (98-107); Globulin 3.5 g/dL (2.4-3.5); Glucose 114 mg/dL (80-115); Magnesium 1.7 mg/dL (1.6-2.6); Potassium 4.2 mmol/L (3.5-5.1); Protein, Total 6.4 g/dL (5.8-8.1); Sodium 139 mmol/L (136-145)
[2020-06-20] MEDS: Folic Acid/Vit B Comp W-C PO SCH (08:25)
[2020-06-20] MEDS: Calcitriol 0.25 MCG CAP PO SCH (08:25)
[2020-06-20] MEDS: Apixaban 2.5 MG TAB PO SCH ×2 (08:25→21:52)
[2020-06-20] MEDS: Amlodipine 5 MG TAB PO SCH (08:25)
[2020-06-20] MEDS: Ferrous Sulfate 325 MG TAB PO SCH (08:25)
[2020-06-20] MEDS: Carvedilol 6.25 MG TAB PO SCH ×2 (08:26→16:57)
[2020-06-20] MEDS: HumaLOG 300 UNITS/3 ML VIAL SC PRN (11:55)
[2020-06-20] MEDS: HYDROcodone/Acetaminophen 5/325 mg Tablet PO PRN (17:17)
[2020-06-20] MEDS: Atorvastatin Calcium 40 MG TAB PO SCH (20:18)
[2020-06-20] MEDS: Magnesium Oxide 400 MG TAB PO SCH (20:19)
[2020-06-20] MEDS: Loratadine 10 MG TAB PO PRN (21:51)
[2020-06-21] MEDS: Albuterol 200 PUFF (6.7GM INHALER) INH SCH ×6 (01:36→23:09)
[2020-06-21] MEDS ORDERED: Magnesium 2 GM/50 ML 2 GM in Premix Bag 1 BAG IVPB SCH (02:15)
[2020-06-21] MEDS: Isosorbide Dinitrate 20 MG TAB PO SCH ×3 (05:37→22:49)
[2020-06-21] MEDS: hydrALAZINE 25 MG TAB PO SCH ×3 (05:38→22:47)
[2020-06-21] MEDS: Furosemide 100 MG/10 ML VIAL SLOW IVP SCH ×2 (05:39→15:18)
[2020-06-21 05:42] LABS: Anion Gap 15 mmol/L (10-20); BUN (Urea Nitrogen) 47 mg/dL (8.4-25.7); Calc. Creatinine Clearance 28 mL/min (70-130); Calcium 8.3 mg/dL (7.8-10.44); Carbon Dioxide 25 mmol/L (23-31); Chloride 106 mmol/L (98-107); Glucose 119 mg/dL (80-115); Magnesium 2.1 mg/dL (1.6-2.6); Sodium 142 mmol/L (136-145)
[2020-06-21] MEDS: Loratadine 10 MG TAB PO PRN (05:42)
[2020-06-21] MEDS: DOBUTamine 500 mg/250 ml 500 MG in Premix Bag 1 BAG IVPB SCH (05:45)
[2020-06-21] MEDS ORDERED: Carvedilol 6.25 MG TAB PO SCH (11:00)
[2020-06-21] MEDS: Calcitriol 0.25 MCG CAP PO SCH (11:40)
[2020-06-21] MEDS: Ferrous Sulfate 325 MG TAB PO SCH (11:40)
[2020-06-21] MEDS: Magnesium Oxide 400 MG TAB PO SCH ×2 (11:40→22:49)
[2020-06-21] MEDS: Folic Acid/Vit B Comp W-C PO SCH (11:41)
[2020-06-21] MEDS: Apixaban 2.5 MG TAB PO SCH ×2 (11:42→22:57)
[2020-06-21] MEDS ORDERED: Amlodipine 5 MG TAB PO SCH ×2 (12:30→21:00)
[2020-06-21] MEDS ORDERED: Potassium Chloride 10 MEQ TAB PO SCH (12:30)
[2020-06-21] MEDS: HumaLOG 300 UNITS/3 ML VIAL SC PRN (12:45)
[2020-06-21] MEDS: Carvedilol 6.25 MG TAB PO SCH ×2 (12:49→17:11)
[2020-06-21] MEDS: Amlodipine 5 MG TAB PO SCH (12:49)
[2020-06-21] MEDS: Atorvastatin Calcium 40 MG TAB PO SCH (22:48)
[2020-06-22] MEDS: Albuterol 200 PUFF (6.7GM INHALER) INH SCH ×6 (01:42→22:18)
[2020-06-22] MEDS: Furosemide 100 MG/10 ML VIAL SLOW IVP SCH ×2 (05:19→14:10)
[2020-06-22] MEDS: hydrALAZINE 25 MG TAB PO SCH ×3 (05:20→21:04)
[2020-06-22] MEDS: Isosorbide Dinitrate 20 MG TAB PO SCH ×3 (05:21→21:03)
[2020-06-22 05:33] LABS: Anion Gap 12 mmol/L (10-20); BUN (Urea Nitrogen) 46 mg/dL (8.4-25.7); Calc. Creatinine Clearance 30 mL/min (70-130); Carbon Dioxide 28 mmol/L (23-31); Chloride 106 mmol/L (98-107); Glucose 136 mg/dL (80-115); Potassium 3.9 mmol/L (3.5-5.1); Sodium 142 mmol/L (136-145)
[2020-06-22] MEDS ORDERED: Potassium Chloride 10 MEQ TAB PO SCH (09:00)
[2020-06-22] MEDS: Folic Acid/Vit B Comp W-C PO SCH (09:32)
[2020-06-22] MEDS: Calcitriol 0.25 MCG CAP PO SCH (09:32)
[2020-06-22] MEDS: Ferrous Sulfate 325 MG TAB PO SCH (09:33)
[2020-06-22] MEDS: Carvedilol 6.25 MG TAB PO SCH ×2 (09:33→17:09)
[2020-06-22] MEDS: Apixaban 2.5 MG TAB PO SCH ×2 (09:33→21:25)
[2020-06-22] MEDS: Amlodipine 10 MG TAB PO SCH (09:33)
[2020-06-22] MEDS: Magnesium Oxide 400 MG TAB PO SCH ×2 (09:33→21:02)
[2020-06-22] MEDS ORDERED: Hydrochlorothiazide 25 MG TAB PO SCH (12:30)
[2020-06-22] MEDS: DOBUTamine 500 mg/250 ml 500 MG in Premix Bag 1 BAG IVPB SCH (18:40)
[2020-06-22] MEDS: Atorvastatin Calcium 40 MG TAB PO SCH (21:02)
[2020-06-22] MEDS: Potassium Chloride 10 MEQ TAB PO SCH (21:26)
[2020-06-23] MEDS: Albuterol 200 PUFF (6.7GM INHALER) INH SCH ×6 (01:03→21:49)
[2020-06-23] MEDS: GUAIFENESIN SF SOLN 200 MG/10 ML UDCUP PO PRN (01:38)
[2020-06-23] MEDS: Benzonatate 100 MG CAP PO PRN (01:38)
[2020-06-23 05:09] LABS: Anion Gap 12 mmol/L (10-20); BUN (Urea Nitrogen) 48 mg/dL (8.4-25.7); Calc. Creatinine Clearance 30 mL/min (70-130); Calcium 7.8 mg/dL (7.8-10.44); Carbon Dioxide 29 mmol/L (23-31); Chloride 104 mmol/L (98-107); Glucose 123 mg/dL (80-115); Potassium 3.6 mmol/L (3.5-5.1); Sodium 141 mmol/L (136-145)
[2020-06-23] MEDS: Isosorbide Dinitrate 20 MG TAB PO SCH ×3 (05:59→20:44)
[2020-06-23] MEDS: hydrALAZINE 25 MG TAB PO SCH ×3 (06:00→20:43)
[2020-06-23] MEDS: Furosemide 100 MG/10 ML VIAL SLOW IVP SCH ×2 (06:01→15:35)
[2020-06-23] MEDS: Ferrous Sulfate 325 MG TAB PO SCH (08:10)
[2020-06-23] MEDS: Folic Acid/Vit B Comp W-C PO SCH (08:10)
[2020-06-23] MEDS: Potassium Chloride 10 MEQ TAB PO SCH (08:10)
[2020-06-23] MEDS: Hydrochlorothiazide 25 MG TAB PO SCH (08:10)
[2020-06-23] MEDS: Calcitriol 0.25 MCG CAP PO SCH (08:10)
[2020-06-23] MEDS: Carvedilol 6.25 MG TAB PO SCH ×2 (08:10→18:19)
[2020-06-23] MEDS: Magnesium Oxide 400 MG TAB PO SCH ×2 (08:11→20:42)
[2020-06-23] MEDS: Apixaban 2.5 MG TAB PO SCH ×2 (08:11→20:45)
[2020-06-23] MEDS: Amlodipine 10 MG TAB PO SCH (08:11)
[2020-06-23] MEDS ORDERED: guaiFENesin ER 600 MG TAB PO SCH (09:15)
[2020-06-23] MEDS ORDERED: DOBUTamine 500 mg/250 ml 500 MG in Premix Bag 1 BAG IVPB SCH (10:15)
[2020-06-23] MEDS ORDERED: Magnesium 2 GM/50 ML 2 GM in Premix Bag 1 BAG IVPB SCH (10:30)
[2020-06-23] MEDS: Potassium Chloride 20 MEQ TAB PO SCH (20:42)
[2020-06-23] MEDS: Atorvastatin Calcium 40 MG TAB PO SCH (20:44)
[2020-06-23] MEDS: guaiFENesin ER 600 MG TAB PO SCH (20:45)
[2020-06-24] MEDS: Albuterol 200 PUFF (6.7GM INHALER) INH SCH ×3 (02:18→11:07)
[2020-06-24] MEDS: hydrALAZINE 25 MG TAB PO SCH ×2 (05:50→13:39)
[2020-06-24] MEDS: Isosorbide Dinitrate 20 MG TAB PO SCH ×2 (05:51→13:39)
[2020-06-24] MEDS: Furosemide 100 MG/10 ML VIAL SLOW IVP SCH (05:51)
[2020-06-24] MEDS ORDERED: Magnesium 2 GM/50 ML 2 GM in Premix Bag 1 BAG IVPB SCH (10:00)
[2020-06-24] MEDS: Ferrous Sulfate 325 MG TAB PO SCH (10:00)
[2020-06-24] MEDS: Carvedilol 6.25 MG TAB PO SCH ×2 (10:05→16:25)
[2020-06-24] MEDS: Apixaban 2.5 MG TAB PO SCH ×2 (10:07→20:09)
[2020-06-24] MEDS: Folic Acid/Vit B Comp W-C PO SCH (10:07)
[2020-06-24] MEDS: Calcitriol 0.25 MCG CAP PO SCH (10:07)
[2020-06-24] MEDS: Amlodipine 10 MG TAB PO SCH (10:07)
[2020-06-24] MEDS: Magnesium Oxide 400 MG TAB PO SCH ×2 (10:08→20:09)
[2020-06-24] MEDS: guaiFENesin ER 600 MG TAB PO SCH ×2 (10:08→20:09)
[2020-06-24] MEDS: Hydrochlorothiazide 25 MG TAB PO SCH (10:08)
[2020-06-24] MEDS: HYDROcodone/Acetaminophen 5/325 mg Tablet PO PRN (10:14)
[2020-06-24] MEDS ORDERED: Potassium Chloride 20 MEQ TAB PO SCH (10:15)
[2020-06-24] MEDS: Potassium Chloride 20 MEQ TAB PO SCH ×2 (10:18→20:09)
[2020-06-24 10:58] LABS: Anion Gap 10 mmol/L (10-20); BUN (Urea Nitrogen) 30 mg/dL (8.4-25.7); Calc. Creatinine Clearance 29 mL/min (70-130); Carbon Dioxide 31 mmol/L (23-31); Chloride 100 mmol/L (98-107); Glucose 248 mg/dL (80-115); Potassium 3.8 mmol/L (3.5-5.1); Sodium 137 mmol/L (136-145)
[2020-06-24] MEDS: HumaLOG 300 UNITS/3 ML VIAL SC PRN ×2 (11:03→17:13)
[2020-06-24] MEDS ORDERED: Albuterol 200 PUFF (6.7GM INHALER) INH PRN (11:52)
[2020-06-24] MEDS: Atorvastatin Calcium 40 MG TAB PO SCH (20:08)
[2020-06-25] MEDS: Isosorbide Dinitrate 20 MG TAB PO SCH ×5 (00:30→20:54)
[2020-06-25] MEDS: hydrALAZINE 25 MG TAB PO SCH ×5 (00:30→20:53)
[2020-06-25 00:39] LABS: Phosphorus 2.8 mg/dL (2.3-4.7)
[2020-06-25 00:51] LABS: BUN/Creatinine Ratio 18.98
[2020-06-25 01:06] LABS: Calc. Creatinine Clearance 28 mL/min (70-130)
[2020-06-25 01:13] LABS: Albumin 2.9 g/dL (3.4-4.8); Anion Gap 13 mmol/L (10-20); BUN (Urea Nitrogen) 58 mg/dL (8.4-25.7); Calcium 7.9 mg/dL (7.8-10.44); Carbon Dioxide 29 mmol/L (23-31); Chloride 102 mmol/L (98-107); Glucose 121 mg/dL (80-115); Magnesium 5.4 mg/dL (1.6-2.6); Phosphorus 2.9 mg/dL (2.3-4.7); Potassium 4.6 mmol/L (3.5-5.1); Sodium 139 mmol/L (136-145)
[2020-06-25 05:25] LABS: Anion Gap 14 mmol/L (10-20); BUN (Urea Nitrogen) 57 mg/dL (8.4-25.7); Calc. Creatinine Clearance 28 mL/min (70-130); Carbon Dioxide 26 mmol/L (23-31); Chloride 101 mmol/L (98-107); Glucose 128 mg/dL (80-115); Magnesium 2.5 mg/dL (1.6-2.6); Potassium 4.4 mmol/L (3.5-5.1); Sodium 137 mmol/L (136-145)
[2020-06-25] MEDS: GUAIFENESIN SF SOLN 200 MG/10 ML UDCUP PO PRN (06:33)
[2020-06-25] MEDS: Amlodipine 10 MG TAB PO SCH (08:25)
[2020-06-25] MEDS: Apixaban 2.5 MG TAB PO SCH ×2 (08:25→20:53)
[2020-06-25] MEDS: Ergocalciferol 1.25 MG(50,000 UNITS) CAP PO SCH (08:25)
[2020-06-25] MEDS: Folic Acid/Vit B Comp W-C PO SCH (08:25)
[2020-06-25] MEDS: Hydrochlorothiazide 25 MG TAB PO SCH (08:26)
[2020-06-25] MEDS: Potassium Chloride 20 MEQ TAB PO SCH ×2 (08:26→16:36)
[2020-06-25] MEDS: Ferrous Sulfate 325 MG TAB PO SCH (08:27)
[2020-06-25] MEDS: Calcitriol 0.25 MCG CAP PO SCH (08:27)
[2020-06-25] MEDS: guaiFENesin ER 600 MG TAB PO SCH ×2 (08:27→20:53)
[2020-06-25] MEDS: Carvedilol 6.25 MG TAB PO SCH ×2 (08:27→16:36)
[2020-06-25] MEDS ORDERED: Torsemide 20 MG TAB PO SCH (09:00)
[2020-06-25] MEDS: HYDROcodone/Acetaminophen 5/325 mg Tablet PO PRN ×2 (10:07→20:55)
[2020-06-25] MEDS ORDERED: Amiodarone 200 MG TAB PO SCH (10:45)
[2020-06-25] MEDS: HumaLOG 300 UNITS/3 ML VIAL SC PRN (11:31)
[2020-06-25 15:27] LABS: Anion Gap 14 mmol/L (10-20); BUN (Urea Nitrogen) 57 mg/dL (8.4-25.7); Calc. Creatinine Clearance 25 mL/min (70-130); Calcium 8.2 mg/dL (7.8-10.44); Carbon Dioxide 27 mmol/L (23-31); Chloride 101 mmol/L (98-107); Glucose 137 mg/dL (80-115); Magnesium 2.6 mg/dL (1.6-2.6); Potassium 4.5 mmol/L (3.5-5.1); Sodium 137 mmol/L (136-145)
[2020-06-25] MEDS: Amiodarone 200 MG TAB PO SCH (20:52)
[2020-06-25] MEDS: Atorvastatin Calcium 40 MG TAB PO SCH (20:53)
[2020-06-26] MEDS: DOBUTamine 500 mg/250 ml 250 ML IVPB SCH (00:55)
[2020-06-26 04:54] LABS: Anion Gap 14 mmol/L (10-20); BUN (Urea Nitrogen) 63 mg/dL (8.4-25.7); Calc. Creatinine Clearance 24 mL/min (70-130); Calcium 8.4 mg/dL (7.8-10.44); Carbon Dioxide 26 mmol/L (23-31); Chloride 103 mmol/L (98-107); Glucose 144 mg/dL (80-115); Magnesium 2.4 mg/dL (1.6-2.6); Potassium 4.8 mmol/L (3.5-5.1); Sodium 138 mmol/L (136-145)
[2020-06-26] MEDS: hydrALAZINE 25 MG TAB PO SCH ×3 (05:44→21:35)
[2020-06-26] MEDS: Isosorbide Dinitrate 20 MG TAB PO SCH ×3 (05:45→21:36)
[2020-06-26] MEDS ORDERED: Furosemide 100 MG/10 ML VIAL SLOW IVP SCH (06:00)
[2020-06-26] MEDS: Carvedilol 6.25 MG TAB PO SCH ×2 (07:54→18:00)
[2020-06-26] MEDS: Apixaban 2.5 MG TAB PO SCH ×2 (07:54→21:35)
[2020-06-26] MEDS: Calcitriol 0.25 MCG CAP PO SCH (07:54)
[2020-06-26] MEDS: Potassium Chloride 20 MEQ TAB PO SCH (07:54)
[2020-06-26] MEDS: Ferrous Sulfate 325 MG TAB PO SCH (07:55)
[2020-06-26] MEDS: Amlodipine 10 MG TAB PO SCH (07:55)
[2020-06-26] MEDS: Folic Acid/Vit B Comp W-C PO SCH (07:55)
[2020-06-26] MEDS: guaiFENesin ER 600 MG TAB PO SCH ×2 (07:55→21:35)
[2020-06-26] MEDS: Amiodarone 200 MG TAB PO SCH ×2 (07:55→21:34)
[2020-06-26] MEDS: Hydrochlorothiazide 25 MG TAB PO SCH (07:55)
[2020-06-26] MEDS: HYDROcodone/Acetaminophen 5/325 mg Tablet PO PRN (17:59)
[2020-06-26] MEDS: GUAIFENESIN SF SOLN 200 MG/10 ML UDCUP PO PRN (18:04)
[2020-06-26] MEDS: Atorvastatin Calcium 40 MG TAB PO SCH (21:35)
[2020-06-27] MEDS: GUAIFENESIN SF SOLN 200 MG/10 ML UDCUP PO PRN ×2 (00:40→21:23)
[2020-06-27] MEDS: hydrALAZINE 25 MG TAB PO SCH ×3 (06:44→21:23)
[2020-06-27] MEDS: Isosorbide Dinitrate 20 MG TAB PO SCH ×3 (06:45→21:23)
[2020-06-27 07:55] LABS: #Eosinphils 0.1 thou/uL (0.0-0.7); #Monocytes 0.7 thou/uL (0.11-0.59); #Neutrophils 5.4 thou/uL (1.40-6.50); %Basophils 0.4 % (0.0-1.0); %Eosinophils 1.3 % (0.0-10.0); %Lymphocytes 13.7 % (21.0-51.0); %Monocytes 9.1 % (0.0-10.0); %Neutrophils 75.5 % (42.0-75.0); Hemoglobin 8.7 g/dL (14.0-18.0); Mean Corpuscular HGB CONC 30.8 g/dL (32.0-36.0); Mean Corpuscular Hemoglobin 28.8 pg (27.0-31.0); Mean Corpuscular Volume 93.7 fL (78.0-98.0); Mean Platelet Volume 6.5 fL (7.4-10.4); Platelet Count 249 thou/uL (130-400); RBC Distribution Width 13.4 % (11.5-14.5); Red Blood Cell (RBC) Count 3.03 mill/uL (4.70-6.10); White Blood Cell (WBC) Count 7.2 thou/uL (4.8-10.8)
[2020-06-27 08:12] LABS: Anion Gap 13 mmol/L (10-20); BUN (Urea Nitrogen) 65 mg/dL (8.4-25.7); Calc. Creatinine Clearance 24 mL/min (70-130); Calcium 8.4 mg/dL (7.8-10.44); Carbon Dioxide 29 mmol/L (23-31); Chloride 102 mmol/L (98-107); Glucose 120 mg/dL (80-115); Potassium 4.5 mmol/L (3.5-5.1); Sodium 139 mmol/L (136-145)
[2020-06-27] MEDS: Hydrochlorothiazide 25 MG TAB PO SCH (09:08)
[2020-06-27] MEDS: guaiFENesin ER 600 MG TAB PO SCH ×2 (09:08→21:22)
[2020-06-27] MEDS: Folic Acid/Vit B Comp W-C PO SCH (09:08)
[2020-06-27] MEDS: Amlodipine 10 MG TAB PO SCH (09:08)
[2020-06-27] MEDS: Calcitriol 0.25 MCG CAP PO SCH (09:09)
[2020-06-27] MEDS: Apixaban 2.5 MG TAB PO SCH ×2 (09:09→21:22)
[2020-06-27] MEDS: Amiodarone 200 MG TAB PO SCH ×2 (09:09→21:21)
[2020-06-27] MEDS: Ferrous Sulfate 325 MG TAB PO SCH (09:09)
[2020-06-27] MEDS: Carvedilol 6.25 MG TAB PO SCH ×2 (09:09→17:33)
[2020-06-27] MEDS: DOBUTamine 500 mg/250 ml 250 ML IVPB SCH (09:10)
[2020-06-27] MEDS: Furosemide 100 MG/10 ML VIAL SLOW IVP SCH (09:10)
[2020-06-27] MEDS: HumaLOG 300 UNITS/3 ML VIAL SC PRN (11:59)
[2020-06-27] MEDS ORDERED: predniSONE 20 MG TAB PO SCH (14:00)
[2020-06-27] MEDS: Acetaminophen 325 MG TAB PO PRN (18:03)
[2020-06-27] MEDS: Benzonatate 100 MG CAP PO PRN (21:22)
[2020-06-27] MEDS: Atorvastatin Calcium 40 MG TAB PO SCH (21:22)
[2020-06-28 05:08] LABS: #Lymphocytes 0.5 thou/uL (1.20-3.40); #Monocytes 0.2 thou/uL (0.11-0.59); #Neutrophils 4.6 thou/uL (1.40-6.50); %Eosinophils 0.1 % (0.0-10.0); %Lymphocytes 10.1 % (21.0-51.0); %Monocytes 2.8 % (0.0-10.0); %Neutrophils 87.1 % (42.0-75.0); Hemoglobin 9.1 g/dL (14.0-18.0); Mean Corpuscular HGB CONC 31.2 g/dL (32.0-36.0); Mean Corpuscular Hemoglobin 29.3 pg (27.0-31.0); Mean Corpuscular Volume 94.1 fL (78.0-98.0); Platelet Count 267 thou/uL (130-400); RBC Distribution Width 13.2 % (11.5-14.5); Red Blood Cell (RBC) Count 3.11 mill/uL (4.70-6.10); White Blood Cell (WBC) Count 5.3 thou/uL (4.8-10.8)
[2020-06-28 05:22] LABS: Anion Gap 15 mmol/L (10-20); BUN (Urea Nitrogen) 70 mg/dL (8.4-25.7); Calc. Creatinine Clearance 23 mL/min (70-130); Calcium 8.3 mg/dL (7.8-10.44); Carbon Dioxide 25 mmol/L (23-31); Chloride 102 mmol/L (98-107); Glucose 256 mg/dL (80-115); Magnesium 2.2 mg/dL (1.6-2.6); Potassium 4.1 mmol/L (3.5-5.1); Sodium 138 mmol/L (136-145)
[2020-06-28] MEDS: hydrALAZINE 25 MG TAB PO SCH ×3 (06:06→21:44)
[2020-06-28] MEDS: Isosorbide Dinitrate 20 MG TAB PO SCH ×4 (06:07→21:50)
[2020-06-28] MEDS: HumaLOG 300 UNITS/3 ML VIAL SC PRN ×3 (06:07→22:22)
[2020-06-28] MEDS: Carvedilol 6.25 MG TAB PO SCH ×2 (08:29→16:09)
[2020-06-28] MEDS: Apixaban 2.5 MG TAB PO SCH ×2 (08:30→21:43)
[2020-06-28] MEDS: Ferrous Sulfate 325 MG TAB PO SCH (08:30)
[2020-06-28] MEDS: predniSONE 20 MG TAB PO SCH (08:30)
[2020-06-28] MEDS: guaiFENesin ER 600 MG TAB PO SCH ×2 (08:30→21:44)
[2020-06-28] MEDS: Amlodipine 10 MG TAB PO SCH (08:31)
[2020-06-28] MEDS: Amiodarone 200 MG TAB PO SCH ×2 (08:31→21:43)
[2020-06-28] MEDS: Calcitriol 0.25 MCG CAP PO SCH (08:31)
[2020-06-28] MEDS: Folic Acid/Vit B Comp W-C PO SCH (08:31)
[2020-06-28] MEDS: Furosemide 100 MG/10 ML VIAL SLOW IVP SCH (08:32)
[2020-06-28] MEDS ORDERED: Potassium Chloride 20 MEQ TAB PO SCH (09:15)
[2020-06-28 16:33] LABS: Anion Gap 15 mmol/L (10-20); BUN (Urea Nitrogen) 67 mg/dL (8.4-25.7); Calc. Creatinine Clearance 23 mL/min (70-130); Calcium 8.4 mg/dL (7.8-10.44); Carbon Dioxide 26 mmol/L (23-31); Chloride 101 mmol/L (98-107); Glucose 298 mg/dL (80-115); Magnesium 2.3 mg/dL (1.6-2.6); Potassium 4.4 mmol/L (3.5-5.1); Sodium 138 mmol/L (136-145)
[2020-06-28] MEDS: DOBUTamine 500 mg/250 ml 250 ML IVPB SCH (17:09)
[2020-06-28] MEDS: Acetaminophen 325 MG TAB PO PRN (21:39)
[2020-06-28] MEDS: Zolpidem Tartrate 5 MG TAB PO PRN (21:41)
[2020-06-28] MEDS: Atorvastatin Calcium 40 MG TAB PO SCH (21:45)
[2020-06-29 04:27] LABS: #Monocytes 0.9 thou/uL (0.11-0.59); #Neutrophils 6.7 thou/uL (1.40-6.50); %Eosinophils 0.1 % (0.0-10.0); %Lymphocytes 11.7 % (21.0-51.0); %Monocytes 10.2 % (0.0-10.0); %Neutrophils 77.9 % (42.0-75.0); Hemoglobin 8.5 g/dL (14.0-18.0); Mean Corpuscular HGB CONC 30.7 g/dL (32.0-36.0); Mean Corpuscular Hemoglobin 28.8 pg (27.0-31.0); Mean Corpuscular Volume 93.8 fL (78.0-98.0); Mean Platelet Volume 6.9 fL (7.4-10.4); Platelet Count 265 thou/uL (130-400); RBC Distribution Width 13.3 % (11.5-14.5); Red Blood Cell (RBC) Count 2.94 mill/uL (4.70-6.10); White Blood Cell (WBC) Count 8.6 thou/uL (4.8-10.8)
[2020-06-29 04:49] LABS: Anion Gap 16 mmol/L (10-20); BUN (Urea Nitrogen) 69 mg/dL (8.4-25.7); Calc. Creatinine Clearance 24 mL/min (70-130); Calcium 8.2 mg/dL (7.8-10.44); Carbon Dioxide 23 mmol/L (23-31); Chloride 101 mmol/L (98-107); Glucose 162 mg/dL (80-115); Magnesium 2.2 mg/dL (1.6-2.6); Potassium 4.3 mmol/L (3.5-5.1); Sodium 136 mmol/L (136-145)
[2020-06-29] MEDS: hydrALAZINE 25 MG TAB PO SCH ×3 (05:39→20:24)
[2020-06-29] MEDS: Isosorbide Dinitrate 20 MG TAB PO SCH ×3 (05:40→20:25)
[2020-06-29] MEDS: guaiFENesin ER 600 MG TAB PO SCH ×2 (08:24→20:20)
[2020-06-29] MEDS: Potassium Chloride 10 MEQ TAB PO SCH ×2 (08:24→20:20)
[2020-06-29] MEDS: predniSONE 20 MG TAB PO SCH (08:24)
[2020-06-29] MEDS: Folic Acid/Vit B Comp W-C PO SCH (08:24)
[2020-06-29] MEDS: Apixaban 2.5 MG TAB PO SCH ×2 (08:24→20:19)
[2020-06-29] MEDS: Amiodarone 200 MG TAB PO SCH ×2 (08:25→20:20)
[2020-06-29] MEDS: Carvedilol 6.25 MG TAB PO SCH ×2 (08:25→16:26)
[2020-06-29] MEDS: Amlodipine 10 MG TAB PO SCH (08:25)
[2020-06-29] MEDS: Ferrous Sulfate 325 MG TAB PO SCH (08:25)
[2020-06-29] MEDS: Furosemide 100 MG/10 ML VIAL SLOW IVP SCH (08:25)
[2020-06-29] MEDS: Calcitriol 0.25 MCG CAP PO SCH (08:25)
[2020-06-29] MEDS: HumaLOG 300 UNITS/3 ML VIAL SC PRN ×3 (11:06→20:38)
[2020-06-29] MEDS: Benzonatate 100 MG CAP PO PRN ×2 (11:08→20:19)
[2020-06-29] MEDS: GUAIFENESIN SF SOLN 200 MG/10 ML UDCUP PO PRN ×2 (11:08→20:34)
[2020-06-29] MEDS: Bumetanide 1 MG TAB PO SCH (14:47)
[2020-06-29] MEDS: Mometasone 200 MCG/Formoterol 5 MCG 120 PUFF INHALER INH SCH (19:13)
[2020-06-29] MEDS: Atorvastatin Calcium 40 MG TAB PO SCH (20:19)
[2020-06-29] MEDS: Zolpidem Tartrate 5 MG TAB PO PRN (20:21)
[2020-06-30 04:51] LABS: #Monocytes 0.8 thou/uL (0.11-0.59); #Neutrophils 6.1 thou/uL (1.40-6.50); %Basophils 0.4 % (0.0-1.0); %Lymphocytes 12.2 % (21.0-51.0); %Monocytes 9.6 % (0.0-10.0); %Neutrophils 77.8 % (42.0-75.0); Hemoglobin 8.2 g/dL (14.0-18.0); Mean Corpuscular HGB CONC 30.9 g/dL (32.0-36.0); Mean Corpuscular Hemoglobin 29.1 pg (27.0-31.0); Mean Corpuscular Volume 94.1 fL (78.0-98.0); Mean Platelet Volume 6.6 fL (7.4-10.4); Platelet Count 270 thou/uL (130-400); RBC Distribution Width 13.4 % (11.5-14.5); White Blood Cell (WBC) Count 7.8 thou/uL (4.8-10.8)
[2020-06-30 05:13] LABS: Anion Gap 14 mmol/L (10-20); BUN (Urea Nitrogen) 72 mg/dL (8.4-25.7); Calc. Creatinine Clearance 23 mL/min (70-130); Calcium 8.2 mg/dL (7.8-10.44); Carbon Dioxide 26 mmol/L (23-31); Chloride 101 mmol/L (98-107); Glucose 230 mg/dL (80-115); Magnesium 2.1 mg/dL (1.6-2.6); Potassium 4.2 mmol/L (3.5-5.1); Sodium 137 mmol/L (136-145)
[2020-06-30] MEDS: Isosorbide Dinitrate 20 MG TAB PO SCH ×3 (05:59→20:58)
[2020-06-30] MEDS: hydrALAZINE 25 MG TAB PO SCH ×3 (05:59→20:57)
[2020-06-30] MEDS: HumaLOG 300 UNITS/3 ML VIAL SC PRN ×4 (06:01→21:02)
[2020-06-30] MEDS: DOBUTamine 500 mg/250 ml 250 ML IVPB SCH (06:01)
[2020-06-30] MEDS: Mometasone 200 MCG/Formoterol 5 MCG 120 PUFF INHALER INH SCH ×2 (07:05→19:09)
[2020-06-30] MEDS: Amlodipine 10 MG TAB PO SCH (08:41)
[2020-06-30] MEDS: Carvedilol 6.25 MG TAB PO SCH (08:41)
[2020-06-30] MEDS: Bumetanide 1 MG TAB PO SCH ×2 (08:42→14:20)
[2020-06-30] MEDS: Folic Acid/Vit B Comp W-C PO SCH (08:42)
[2020-06-30] MEDS: Amiodarone 200 MG TAB PO SCH ×2 (08:42→20:59)
[2020-06-30] MEDS: Potassium Chloride 10 MEQ TAB PO SCH ×2 (08:42→20:58)
[2020-06-30] MEDS: Ferrous Sulfate 325 MG TAB PO SCH (08:42)
[2020-06-30] MEDS: predniSONE 20 MG TAB PO SCH ×2 (08:42→09:01)
[2020-06-30] MEDS: guaiFENesin ER 600 MG TAB PO SCH ×2 (08:43→20:58)
[2020-06-30] MEDS: Calcitriol 0.25 MCG CAP PO SCH (08:43)
[2020-06-30] MEDS: Apixaban 2.5 MG TAB PO SCH ×2 (08:43→20:59)
[2020-06-30 14:24] LABS: Body Surface Area 2.03
[2020-06-30 14:39] LABS: Creatinine, Urine 50.1 mg/dL (63-166)
[2020-06-30] MEDS: Zolpidem Tartrate 5 MG TAB PO PRN (20:58)
[2020-06-30] MEDS: Atorvastatin Calcium 40 MG TAB PO SCH (20:59)
[2020-06-30] MEDS: Benzonatate 100 MG CAP PO PRN (23:20)
[2020-07-01] MEDS: GUAIFENESIN SF SOLN 200 MG/10 ML UDCUP PO PRN ×2 (04:09→21:11)
[2020-07-01 05:28] LABS: Anion Gap 13 mmol/L (10-20); BUN (Urea Nitrogen) 72 mg/dL (8.4-25.7); Calc. Creatinine Clearance 23 mL/min (70-130); Calcium 8.4 mg/dL (7.8-10.44); Carbon Dioxide 27 mmol/L (23-31); Chloride 101 mmol/L (98-107); Glucose 210 mg/dL (80-115); Potassium 4.3 mmol/L (3.5-5.1); Sodium 137 mmol/L (136-145)
[2020-07-01] MEDS: hydrALAZINE 25 MG TAB PO SCH ×3 (05:33→21:13)
[2020-07-01] MEDS: Isosorbide Dinitrate 20 MG TAB PO SCH ×3 (05:33→21:15)
[2020-07-01] MEDS: DOBUTamine 500 mg/250 ml 250 ML IVPB SCH ×2 (05:33→09:15)
[2020-07-01] MEDS: HumaLOG 300 UNITS/3 ML VIAL SC PRN ×4 (05:39→21:15)
[2020-07-01] MEDS: Mometasone 200 MCG/Formoterol 5 MCG 120 PUFF INHALER INH SCH ×2 (07:18→18:43)
[2020-07-01] MEDS: Amiodarone 200 MG TAB PO SCH ×2 (08:28→21:14)
[2020-07-01] MEDS: guaiFENesin ER 600 MG TAB PO SCH ×2 (08:29→21:14)
[2020-07-01] MEDS: Bumetanide 1 MG TAB PO SCH ×2 (08:29→13:23)
[2020-07-01] MEDS: Folic Acid/Vit B Comp W-C PO SCH (08:29)
[2020-07-01] MEDS: Ferrous Sulfate 325 MG TAB PO SCH (08:29)
[2020-07-01] MEDS: Potassium Chloride 10 MEQ TAB PO SCH ×2 (08:29→21:14)
[2020-07-01] MEDS: predniSONE 20 MG TAB PO SCH (08:30)
[2020-07-01] MEDS: Calcitriol 0.25 MCG CAP PO SCH (08:30)
[2020-07-01] MEDS: Apixaban 2.5 MG TAB PO SCH ×2 (08:30→21:14)
[2020-07-01] MEDS: Amlodipine 10 MG TAB PO SCH (08:30)
[2020-07-01] MEDS ORDERED: DOBUTamine 500 mg/250 ml 250 ML IVPB SCH (13:00)
[2020-07-01] MEDS: Atorvastatin Calcium 40 MG TAB PO SCH (21:11)
[2020-07-01] MEDS: Acetaminophen 325 MG TAB PO PRN (21:12)
[2020-07-01] MEDS: Benzonatate 100 MG CAP PO PRN (21:13)
[2020-07-02 04:40] VITALS: BP 132/63
[2020-07-02 05:06] LABS: Anion Gap 10 mmol/L (10-20); BUN (Urea Nitrogen) 74 mg/dL (8.4-25.7); Calc. Creatinine Clearance 23 mL/min (70-130); Calcium 8.5 mg/dL (7.8-10.44); Carbon Dioxide 28 mmol/L (23-31); Chloride 102 mmol/L (98-107); Glucose 180 mg/dL (80-115); Magnesium 1.9 mg/dL (1.6-2.6); Potassium 4.2 mmol/L (3.5-5.1); Sodium 136 mmol/L (136-145)
[2020-07-02 05:19] VITALS: BMI 34.4
[2020-07-02] MEDS: hydrALAZINE 25 MG TAB PO SCH (05:44)
[2020-07-02] MEDS: Isosorbide Dinitrate 20 MG TAB PO SCH (05:45)
[2020-07-02] MEDS: HumaLOG 300 UNITS/3 ML VIAL SC PRN (06:00)
[2020-07-02] MEDS: Mometasone 200 MCG/Formoterol 5 MCG 120 PUFF INHALER INH SCH (07:55)
[2020-07-02 08:59] VITALS: TEMP 97.8
[2020-07-02] MEDS ORDERED: Magnesium Oxide 400 MG TAB PO SCH (09:00)
[2020-07-02] MEDS: Folic Acid/Vit B Comp W-C PO SCH (09:05)
[2020-07-02] MEDS: Apixaban 2.5 MG TAB PO SCH (09:06)
[2020-07-02] MEDS: Ferrous Sulfate 325 MG TAB PO SCH (09:06)
[2020-07-02] MEDS: Calcitriol 0.25 MCG CAP PO SCH (09:06)
[2020-07-02] MEDS: Potassium Chloride 10 MEQ TAB PO SCH (09:06)
[2020-07-02] MEDS: Amlodipine 10 MG TAB PO SCH (09:07)
[2020-07-02] MEDS: predniSONE 20 MG TAB PO SCH (09:07)
[2020-07-02] MEDS: Amiodarone 200 MG TAB PO SCH (09:07)
[2020-07-02] MEDS: Bumetanide 1 MG TAB PO SCH (09:07)
[2020-07-02] MEDS: guaiFENesin ER 600 MG TAB PO SCH (09:08)
[2020-07-02] MEDS: Ergocalciferol 1.25 MG(50,000 UNITS) CAP PO SCH (11:52)
[2020-07-08] MEDS ORDERED: Amiodarone 200 MG TAB PO SCH (09:00)
== END 2020-07-02 11:37 | disposition home or self-care (01) | DRG 291 ==
LOC: ERS 22:23 → 2SE 06-17 02:20 → OBSVTOIN 06-17 02:20 → 2NO 06-25 17:30
PROVIDERS: ADMIT Student in an Organized Health Care Education/Training Program; ATTEND Internal Medicine
DX: I13.0 Hypertensive heart and chronic kidney disease with heart failure and stage 1 through stage 4 chronic kidney disease, or unspecified chronic kidney disease (principal); I50.43 Acute on chronic combined systolic (congestive) and diastolic (congestive) heart failure; N18.4 Chronic kidney disease, stage 4 (severe); N17.9 Acute kidney failure, unspecified; E87.2 Acidosis; I47.2 Ventricular tachycardia; Z20.822 Contact with and (suspected) exposure to COVID-19; K21.9 Gastro-esophageal reflux disease without esophagitis; I25.10 Atherosclerotic heart disease of native coronary artery without angina pectoris; E11.22 Type 2 diabetes mellitus with diabetic chronic kidney disease; E78.5 Hyperlipidemia, unspecified; E78.00 Pure hypercholesterolemia, unspecified; E66.9 Obesity, unspecified; F17.210 Nicotine dependence, cigarettes, uncomplicated; D50.9 Iron deficiency anemia, unspecified; E55.9 Vitamin D deficiency, unspecified; E87.5 Hyperkalemia; I16.0 Hypertensive urgency; E88.09 Other disorders of plasma-protein metabolism, not elsewhere classified; I25.5 Ischemic cardiomyopathy; I42.8 Other cardiomyopathies; I48.0 Paroxysmal atrial fibrillation; E11.51 Type 2 diabetes mellitus with diabetic peripheral angiopathy without gangrene; G47.33 Obstructive sleep apnea (adult) (pediatric); E87.6 Hypokalemia; I25.2 Old myocardial infarction; Z95.5 Presence of coronary angioplasty implant and graft; Z95.810 Presence of automatic (implantable) cardiac defibrillator; Z79.84 Long term (current) use of oral hypoglycemic drugs; Z79.01 Long term (current) use of anticoagulants; Z79.899 Other long term (current) drug therapy; Z59.0 Homelessness; Z68.34 Body mass index [BMI] 34.0-34.9, adult
CPT/HCPCS: 36415; 36416; 71045; 71250; 80048; 80053; 82306; 82553; 82570; 82575; 82728; 83540; 83550; 83735; 83880; 83970; 84100; 84156; 84443; 84484; 85025; 93005; 93306; 93798; 93970; 94664; 96374; 97139; J1250; J1815; J1940; J2260; J3475; J7512; P9047

== ENCOUNTER 2020-07-08 14:12 | Inpatient (IN) | payer OTHER ==
[~2020-07-08 14:12] MED LIST: Heparin 10,000 UNITS/ 10 ML VIAL ONE
[2020-07-08 14:47] LABS: Actual Bicarbonate (HCO3a) 21.8 mEq/L (22-28); Analyzer IN Cardio ER; Base Excess (BEa) -6.5 mEq/L (-2.0 to +3.0); CO2 Tension 58.5 mmHg (35.0-45.0); Calcium, Ionized (arterial) 1.21 mmol/L (1.12-1.30); Carboxyhemoglobin (COHb) 4.1 gm% (0.0-3.0); Hemoglobin (Hb) 9.6 g/dL (14.0-18.0); Potassium - ABG Lab 5.34 mmol/L (3.70-5.30)
[2020-07-08 15:05] LABS: ALV-art Gradient 24.505 mmHg (0-20); O2 Tension (PaO2), arterial 52.1 mmHg (> 80.0); Puncture Site LRA; pH, Arterial 7.19 (7.35-7.45)
[2020-07-08 16:58] LABS: SARS-CoV-2 NAA Rapid Test Not Detected (NotDetected)
[2020-07-08] MEDS ORDERED: Dextrose 5% in Water 1,000 ML IV PRN (17:11)
[2020-07-08] MEDS ORDERED: Bisacodyl 5 MG TAB PO PRN (17:11)
[2020-07-08 18:20] LABS: HBSAg Index 0.25 S/CO (0-0.99); Hep B Surf Ag Non-Reactive S/CO (NonReactive)
[2020-07-08 18:52] LABS: Troponin I 0.025 ng/mL (< 0.028)
[2020-07-08] MEDS: Dextrose 50% Abboject 50 ML SYRINGE SLOW IVP PRN (20:33)
[2020-07-08] MEDS: Atorvastatin Calcium 40 MG TAB PO SCH (20:59)
[2020-07-08] MEDS ORDERED: Apixaban 2.5 MG TAB PO SCH (21:00)
[2020-07-08 22:43] LABS: Troponin I 0.031 ng/mL (< 0.028)
[2020-07-08 23:25] LABS: Hep B Core Total Ab Non-Reactive (NonReactive); Hep B Core Total Index 0.06 S/CO (0-0.79)
[2020-07-08 23:26] LABS: Hep C IgG Ab Non-Reactive (NonReactive)
[2020-07-08 23:34] LABS: HBSAB Concentration 20.95 mIU/mL; Hep B Surf AB Reactive (NonReactive)
[2020-07-09 00:19] LABS: HBSAg Index 0.16 S/CO (0-0.99); Hep B Surf Ag NonReactive S/CO (NonReactive)
[2020-07-09 05:06] LABS: #Eosinphils 0.1 thou/uL (0.0-0.7); #Lymphocytes 1.4 thou/uL (1.20-3.40); #Monocytes 0.6 thou/uL (0.11-0.59); #Neutrophils 3.3 thou/uL (1.40-6.50); %Basophils 0.9 % (0.0-1.0); %Eosinophils 1.3 % (0.0-10.0); %Lymphocytes 25.8 % (21.0-51.0); %Neutrophils 61.1 % (42.0-75.0); Hemoglobin 8.1 g/dL (14.0-18.0); Mean Corpuscular HGB CONC 29.8 g/dL (32.0-36.0); Mean Corpuscular Hemoglobin 28.1 pg (27.0-31.0); Mean Corpuscular Volume 94.1 fL (78.0-98.0); Mean Platelet Volume 6.7 fL (7.4-10.4); Platelet Count 268 thou/uL (130-400); RBC Distribution Width 14.2 % (11.5-14.5); Red Blood Cell (RBC) Count 2.88 mill/uL (4.70-6.10); White Blood Cell (WBC) Count 5.4 thou/uL (4.8-10.8)
[2020-07-09 05:22] LABS: Anion Gap 15 mmol/L (10-20); BUN (Urea Nitrogen) 83 mg/dL (8.4-25.7); Calc. Creatinine Clearance 23 mL/min (70-130); Calcium 8.1 mg/dL (7.8-10.44); Carbon Dioxide 26 mmol/L (23-31); Chloride 107 mmol/L (98-107); Potassium 4.6 mmol/L (3.5-5.1); Sodium 143 mmol/L (136-145)
[2020-07-09 05:28] LABS: Glucose 38 mg/dL (80-115)
[2020-07-09] MEDS: Dextrose 50% Abboject 50 ML SYRINGE SLOW IVP PRN ×2 (05:31→08:52)
[2020-07-09] MEDS ORDERED: Prevnar 13-Val Conj/PF 0.5 ML SYRINGE IM ONE (09:00)
[2020-07-09] MEDS ORDERED: FLU VACC QS2020-21(6MOS UP)/PF 60 MCG/0.5 ML SYRINGE IM ONE (09:00)
[2020-07-09] MEDS: Dextrose 10% in Water 1,000 ML IV SCH (09:51)
[2020-07-09] MEDS: Folic Acid/Vit B Comp W-C PO SCH (09:54)
[2020-07-09] MEDS: Ferrous Sulfate 325 MG TAB PO SCH (09:54)
[2020-07-09] MEDS: Calcitriol 0.25 MCG CAP PO SCH (09:54)
[2020-07-09] MEDS: methylPREDNISolone Sod Succ 40 MG VIAL IVP SCH ×2 (10:04→18:02)
[2020-07-09] MEDS: hydrALAZINE 25 MG TAB PO SCH (22:13)
[2020-07-09] MEDS: Isosorbide Dinitrate 20 MG TAB PO SCH (22:14)
[2020-07-09] MEDS: Atorvastatin Calcium 40 MG TAB PO SCH (22:14)
[2020-07-09] MEDS: HumaLOG 300 UNITS/3 ML VIAL SC PRN (22:36)
[2020-07-10] MEDS: methylPREDNISolone Sod Succ 40 MG VIAL IVP SCH ×5 (00:09→23:18)
[2020-07-10 04:09] LABS: #Lymphocytes 0.8 thou/uL (1.20-3.40); #Monocytes 0.1 thou/uL (0.11-0.59); #Neutrophils 5.3 thou/uL (1.40-6.50); %Basophils 0.2 % (0.0-1.0); %Eosinophils 0.1 % (0.0-10.0); %Lymphocytes 12.6 % (21.0-51.0); %Monocytes 1.8 % (0.0-10.0); %Neutrophils 85.3 % (42.0-75.0); Hemoglobin 7.8 g/dL (14.0-18.0); Mean Corpuscular HGB CONC 31.1 g/dL (32.0-36.0); Mean Corpuscular Hemoglobin 28.9 pg (27.0-31.0); Mean Corpuscular Volume 92.7 fL (78.0-98.0); Mean Platelet Volume 6.8 fL (7.4-10.4); Platelet Count 273 thou/uL (130-400); RBC Distribution Width 14.3 % (11.5-14.5); Red Blood Cell (RBC) Count 2.69 mill/uL (4.70-6.10); White Blood Cell (WBC) Count 6.2 thou/uL (4.8-10.8)
[2020-07-10 04:33] LABS: Anion Gap 10 mmol/L (10-20); BUN (Urea Nitrogen) 50 mg/dL (8.4-25.7); Calc. Creatinine Clearance 33 mL/min (70-130); Calcium 7.9 mg/dL (7.8-10.44); Carbon Dioxide 30 mmol/L (23-31); Chloride 103 mmol/L (98-107); Glucose 210 mg/dL (80-115); Potassium 4.6 mmol/L (3.5-5.1); Sodium 138 mmol/L (136-145)
[2020-07-10] MEDS: Dextrose 10% in Water 1,000 ML IV SCH (05:37)
[2020-07-10] MEDS: HumaLOG 300 UNITS/3 ML VIAL SC PRN ×4 (05:39→20:29)
[2020-07-10] MEDS: Isosorbide Dinitrate 20 MG TAB PO SCH ×3 (05:39→21:37)
[2020-07-10] MEDS: Folic Acid/Vit B Comp W-C PO SCH (08:36)
[2020-07-10] MEDS: Calcitriol 0.25 MCG CAP PO SCH (08:36)
[2020-07-10] MEDS: Ferrous Sulfate 325 MG TAB PO SCH (08:36)
[2020-07-10] MEDS: hydrALAZINE 25 MG TAB PO SCH ×3 (08:36→20:29)
[2020-07-10] MEDS ORDERED: Dextrose 5% in Water 500 ML IV SCH (09:15)
[2020-07-10] MEDS: Atorvastatin Calcium 40 MG TAB PO SCH (20:29)
[2020-07-11 04:01] LABS: #Lymphocytes 0.8 thou/uL (1.20-3.40); #Monocytes 0.2 thou/uL (0.11-0.59); #Neutrophils 11.3 thou/uL (1.40-6.50); %Lymphocytes 6.8 % (21.0-51.0); %Monocytes 1.9 % (0.0-10.0); %Neutrophils 91.3 % (42.0-75.0); Hemoglobin 8.2 g/dL (14.0-18.0); Mean Corpuscular HGB CONC 31.5 g/dL (32.0-36.0); Mean Corpuscular Hemoglobin 28.8 pg (27.0-31.0); Mean Corpuscular Volume 91.5 fL (78.0-98.0); Mean Platelet Volume 7.1 fL (7.4-10.4); Platelet Count 286 thou/uL (130-400); RBC Distribution Width 14.3 % (11.5-14.5); Red Blood Cell (RBC) Count 2.85 mill/uL (4.70-6.10); White Blood Cell (WBC) Count 12.3 thou/uL (4.8-10.8)
[2020-07-11 04:28] LABS: Anion Gap 14 mmol/L (10-20); BUN (Urea Nitrogen) 61 mg/dL (8.4-25.7); Calc. Creatinine Clearance 27 mL/min (70-130); Calcium 8.3 mg/dL (7.8-10.44); Carbon Dioxide 28 mmol/L (23-31); Chloride 101 mmol/L (98-107); Glucose 233 mg/dL (80-115); Potassium 4.7 mmol/L (3.5-5.1); Sodium 138 mmol/L (136-145)
[2020-07-11] MEDS: methylPREDNISolone Sod Succ 40 MG VIAL IVP SCH (05:35)
[2020-07-11] MEDS: Isosorbide Dinitrate 20 MG TAB PO SCH ×3 (05:36→21:11)
[2020-07-11] MEDS: HumaLOG 300 UNITS/3 ML VIAL SC PRN ×4 (05:36→21:12)
[2020-07-11] MEDS: Acetaminophen 325 MG TAB PO PRN (05:38)
[2020-07-11] MEDS ORDERED: Apixaban 2.5 MG TAB PO SCH (09:00)
[2020-07-11] MEDS ORDERED: Apixaban 5 MG TAB PO SCH (09:00)
[2020-07-11] MEDS: Ferrous Sulfate 325 MG TAB PO SCH (09:07)
[2020-07-11] MEDS: Folic Acid/Vit B Comp W-C PO SCH (09:07)
[2020-07-11] MEDS: Aspirin Chewable 81 MG TAB PO SCH (09:07)
[2020-07-11] MEDS: Calcitriol 0.25 MCG CAP PO SCH (09:07)
[2020-07-11] MEDS: Benzonatate 100 MG CAP PO PRN (09:27)
[2020-07-11] MEDS ORDERED: Magnesium Oxide 400 MG TAB PO SCH (10:30)
[2020-07-11] MEDS ORDERED: Amiodarone 200 MG TAB PO SCH (10:30)
[2020-07-11] MEDS: hydrALAZINE 25 MG TAB PO SCH ×3 (10:52→21:10)
[2020-07-11] MEDS ORDERED: Heparin 10,000 UNITS/ 10 ML VIAL ONE (13:44)
[2020-07-11 15:42] LABS: Anion Gap 12 mmol/L (10-20); BUN (Urea Nitrogen) 36 mg/dL (8.4-25.7); Calc. Creatinine Clearance 38 mL/min (70-130); Carbon Dioxide 28 mmol/L (23-31); Chloride 100 mmol/L (98-107); Glucose 307 mg/dL (80-115); Magnesium 1.5 mg/dL (1.6-2.6); Potassium 3.8 mmol/L (3.5-5.1); Sodium 136 mmol/L (136-145)
[2020-07-11] MEDS: predniSONE 20 MG TAB PO SCH (16:51)
[2020-07-11] MEDS: Magnesium Oxide 400 MG TAB PO SCH (21:10)
[2020-07-11] MEDS: Atorvastatin Calcium 40 MG TAB PO SCH (21:10)
[2020-07-12] MEDS: Isosorbide Dinitrate 20 MG TAB PO SCH ×3 (05:11→21:42)
[2020-07-12 05:17] LABS: #Lymphocytes 1.2 thou/uL (1.20-3.40); #Monocytes 0.9 thou/uL (0.11-0.59); #Neutrophils 10.8 thou/uL (1.40-6.50); %Basophils 0.2 % (0.0-1.0); %Eosinophils 0.1 % (0.0-10.0); %Lymphocytes 8.9 % (21.0-51.0); %Monocytes 7.3 % (0.0-10.0); %Neutrophils 83.5 % (42.0-75.0); Hemoglobin 8.1 g/dL (14.0-18.0); Mean Corpuscular HGB CONC 31.9 g/dL (32.0-36.0); Mean Corpuscular Hemoglobin 28.8 pg (27.0-31.0); Mean Corpuscular Volume 90.4 fL (78.0-98.0); Platelet Count 254 thou/uL (130-400); RBC Distribution Width 14.2 % (11.5-14.5); White Blood Cell (WBC) Count 12.9 thou/uL (4.8-10.8)
[2020-07-12 05:39] LABS: Anion Gap 12 mmol/L (10-20); BUN (Urea Nitrogen) 43 mg/dL (8.4-25.7); Calc. Creatinine Clearance 32 mL/min (70-130); Calcium 8.3 mg/dL (7.8-10.44); Carbon Dioxide 28 mmol/L (23-31); Chloride 102 mmol/L (98-107); Glucose 213 mg/dL (80-115); Potassium 3.9 mmol/L (3.5-5.1); Sodium 138 mmol/L (136-145)
[2020-07-12] MEDS: HumaLOG 300 UNITS/3 ML VIAL SC PRN ×2 (07:21→21:48)
[2020-07-12] MEDS: Folic Acid/Vit B Comp W-C PO SCH (07:30)
[2020-07-12] MEDS: Ferrous Sulfate 325 MG TAB PO SCH (07:30)
[2020-07-12] MEDS: hydrALAZINE 25 MG TAB PO SCH ×3 (07:30→21:43)
[2020-07-12] MEDS: Magnesium Oxide 400 MG TAB PO SCH ×2 (07:30→21:43)
[2020-07-12] MEDS: Aspirin Chewable 81 MG TAB PO SCH (07:30)
[2020-07-12] MEDS: Calcitriol 0.25 MCG CAP PO SCH (07:30)
[2020-07-12] MEDS ORDERED: Magnesium 2 GM/50 ML 2 GM in Premix Bag 1 BAG IVPB SCH (07:30)
[2020-07-12] MEDS: predniSONE 20 MG TAB PO SCH ×2 (07:30→17:10)
[2020-07-12] MEDS: Amiodarone 200 MG TAB PO SCH (07:31)
[2020-07-12] MEDS ORDERED: Heparin 10,000 UNITS/ 10 ML VIAL ONE (13:39)
[2020-07-12] MEDS ORDERED: Tuberculin PPD 0.1 ML VIAL I-DERMAL SCH (16:00)
[2020-07-12] MEDS: Atorvastatin Calcium 40 MG TAB PO SCH (21:42)
[2020-07-13 04:15] LABS: #Monocytes 0.7 thou/uL (0.11-0.59); #Neutrophils 8.3 thou/uL (1.40-6.50); %Lymphocytes 9.7 % (21.0-51.0); %Monocytes 7.2 % (0.0-10.0); %Neutrophils 83.1 % (42.0-75.0); Hemoglobin 8.2 g/dL (14.0-18.0); Mean Corpuscular HGB CONC 32.4 g/dL (32.0-36.0); Mean Corpuscular Hemoglobin 29.3 pg (27.0-31.0); Mean Corpuscular Volume 90.5 fL (78.0-98.0); Mean Platelet Volume 6.9 fL (7.4-10.4); Platelet Count 230 thou/uL (130-400); RBC Distribution Width 14.2 % (11.5-14.5); Red Blood Cell (RBC) Count 2.79 mill/uL (4.70-6.10)
[2020-07-13 04:37] LABS: Anion Gap 14 mmol/L (10-20); BUN (Urea Nitrogen) 31 mg/dL (8.4-25.7); Calc. Creatinine Clearance 38 mL/min (70-130); Calcium 7.9 mg/dL (7.8-10.44); Carbon Dioxide 25 mmol/L (23-31); Chloride 104 mmol/L (98-107); Glucose 254 mg/dL (80-115); Potassium 3.7 mmol/L (3.5-5.1); Sodium 139 mmol/L (136-145)
[2020-07-13] MEDS: HumaLOG 300 UNITS/3 ML VIAL SC PRN ×2 (06:12→17:17)
[2020-07-13] MEDS ORDERED: Lantus 1000 UNITS/10 ML VIAL SC SCH (07:30)
[2020-07-13] MEDS: Magnesium Oxide 400 MG TAB PO SCH ×2 (08:37→21:03)
[2020-07-13] MEDS: Calcitriol 0.25 MCG CAP PO SCH (08:37)
[2020-07-13] MEDS: Aspirin Chewable 81 MG TAB PO SCH (08:37)
[2020-07-13] MEDS: Amiodarone 200 MG TAB PO SCH (08:37)
[2020-07-13] MEDS: Folic Acid/Vit B Comp W-C PO SCH (08:37)
[2020-07-13] MEDS: Ferrous Sulfate 325 MG TAB PO SCH (08:37)
[2020-07-13] MEDS: predniSONE 5 MG TAB PO SCH (08:38)
[2020-07-13] MEDS: Isosorbide Dinitrate 20 MG TAB PO SCH ×3 (08:38→21:03)
[2020-07-13] MEDS: hydrALAZINE 25 MG TAB PO SCH ×3 (08:38→21:04)
[2020-07-13] MEDS: Sacubitril 49 MG/Valsartan 51 MG TABLET PO SCH ×2 (08:49→21:03)
[2020-07-13] MEDS: Benzonatate 100 MG CAP PO PRN (21:05)
[2020-07-13] MEDS: Atorvastatin Calcium 40 MG TAB PO SCH (21:05)
[2020-07-14 04:44] LABS: #Eosinphils 0.2 thou/uL (0.0-0.7); #Lymphocytes 0.6 thou/uL (1.20-3.40); #Monocytes 0.9 thou/uL (0.11-0.59); #Neutrophils 9.6 thou/uL (1.40-6.50); %Basophils 0.2 % (0.0-1.0); %Eosinophils 1.4 % (0.0-10.0); %Lymphocytes 5.2 % (21.0-51.0); %Monocytes 7.9 % (0.0-10.0); %Neutrophils 85.4 % (42.0-75.0); Hemoglobin 9.6 g/dL (14.0-18.0); Mean Corpuscular HGB CONC 31.3 g/dL (32.0-36.0); Mean Corpuscular Hemoglobin 28.5 pg (27.0-31.0); Mean Platelet Volume 6.6 fL (7.4-10.4); Platelet Count 244 thou/uL (130-400); RBC Distribution Width 14.4 % (11.5-14.5); Red Blood Cell (RBC) Count 3.38 mill/uL (4.70-6.10); White Blood Cell (WBC) Count 11.2 thou/uL (4.8-10.8)
[2020-07-14] MEDS: Isosorbide Dinitrate 20 MG TAB PO SCH ×3 (06:33→20:49)
[2020-07-14] MEDS: hydrALAZINE 25 MG TAB PO SCH ×2 (06:37→20:53)
[2020-07-14 06:41] LABS: Anion Gap 11 mmol/L (10-20); BUN (Urea Nitrogen) 38 mg/dL (8.4-25.7); Calc. Creatinine Clearance 33 mL/min (70-130); Calcium 7.8 mg/dL (7.8-10.44); Carbon Dioxide 28 mmol/L (23-31); Chloride 105 mmol/L (98-107); Glucose 78 mg/dL (80-115); Potassium 3.1 mmol/L (3.5-5.1); Sodium 141 mmol/L (136-145)
[2020-07-14 06:53] LABS: Magnesium 1.7 mg/dL (1.6-2.6)
[2020-07-14] MEDS: Amiodarone 200 MG TAB PO SCH (08:09)
[2020-07-14] MEDS: Folic Acid/Vit B Comp W-C PO SCH (08:09)
[2020-07-14] MEDS: Magnesium Oxide 400 MG TAB PO SCH ×2 (08:09→20:49)
[2020-07-14] MEDS: Calcitriol 0.25 MCG CAP PO SCH (08:09)
[2020-07-14] MEDS: Sacubitril 49 MG/Valsartan 51 MG TABLET PO SCH ×2 (08:09→20:49)
[2020-07-14] MEDS: predniSONE 5 MG TAB PO SCH (08:09)
[2020-07-14] MEDS: Ferrous Sulfate 325 MG TAB PO SCH (08:09)
[2020-07-14] MEDS: Aspirin Chewable 81 MG TAB PO SCH (08:09)
[2020-07-14] MEDS: Labetalol HCl 100 MG/20 ML VIAL SLOW IVP SCH ×2 (08:10→13:44)
[2020-07-14] MEDS ORDERED: READ PPD TEST SITE PO SCH (09:00)
[2020-07-14] MEDS ORDERED: hydrALAZINE 25 MG TAB PO SCH (14:00)
[2020-07-14] MEDS ORDERED: Labetalol HCl 100 MG/20 ML VIAL SLOW IVP PRN (15:15)
[2020-07-14 16:58] LABS: Anion Gap 13 mmol/L (10-20); BUN (Urea Nitrogen) 39 mg/dL (8.4-25.7); Calc. Creatinine Clearance 29 mL/min (70-130); Calcium 7.5 mg/dL (7.8-10.44); Carbon Dioxide 26 mmol/L (23-31); Chloride 102 mmol/L (98-107); Glucose 360 mg/dL (80-115); Potassium 3.6 mmol/L (3.5-5.1); Sodium 137 mmol/L (136-145)
[2020-07-14] MEDS: HumaLOG 300 UNITS/3 ML VIAL SC PRN ×2 (17:45→20:48)
[2020-07-14] MEDS: Atorvastatin Calcium 40 MG TAB PO SCH (20:49)
[2020-07-14] MEDS: Acetaminophen 325 MG TAB PO PRN (20:51)
[2020-07-15 03:15] LABS: #Eosinphils 0.2 thou/uL (0.0-0.7); #Monocytes 0.6 thou/uL (0.11-0.59); #Neutrophils 6.2 thou/uL (1.40-6.50); %Eosinophils 2.8 % (0.0-10.0); %Lymphocytes 12.3 % (21.0-51.0); %Monocytes 7.6 % (0.0-10.0); %Neutrophils 77.3 % (42.0-75.0); Hemoglobin 8.8 g/dL (14.0-18.0); Mean Corpuscular HGB CONC 31.4 g/dL (32.0-36.0); Mean Corpuscular Hemoglobin 28.8 pg (27.0-31.0); Mean Corpuscular Volume 91.8 fL (78.0-98.0); Mean Platelet Volume 6.7 fL (7.4-10.4); Platelet Count 211 thou/uL (130-400); RBC Distribution Width 14.6 % (11.5-14.5); Red Blood Cell (RBC) Count 3.04 mill/uL (4.70-6.10)
[2020-07-15 03:35] LABS: Anion Gap 8 mmol/L (10-20); BUN (Urea Nitrogen) 41 mg/dL (8.4-25.7); Calc. Creatinine Clearance 31 mL/min (70-130); Calcium 7.2 mg/dL (7.8-10.44); Carbon Dioxide 29 mmol/L (23-31); Chloride 108 mmol/L (98-107); Glucose 153 mg/dL (80-115); Magnesium 1.7 mg/dL (1.6-2.6); Potassium 3.4 mmol/L (3.5-5.1); Sodium 142 mmol/L (136-145)
[2020-07-15] MEDS: hydrALAZINE 25 MG TAB PO SCH ×3 (05:04→22:10)
[2020-07-15] MEDS: Isosorbide Dinitrate 20 MG TAB PO SCH ×3 (05:04→22:15)
[2020-07-15] MEDS: HumaLOG 300 UNITS/3 ML VIAL SC PRN ×2 (06:27→16:46)
[2020-07-15] MEDS ORDERED: Potassium Chloride 20 MEQ TAB PO SCH (07:27)
[2020-07-15] MEDS ORDERED: Magnesium 2 GM/50 ML 2 GM in Premix Bag 1 BAG IVPB SCH (07:45)
[2020-07-15] MEDS ORDERED: Ergocalciferol 1.25 MG(50,000 UNITS) CAP PO SCH (09:00)
[2020-07-15] MEDS ORDERED: Heparin 10,000 UNITS/ 10 ML VIAL ONE (09:00)
[2020-07-15] MEDS ORDERED: SUGAMMADEX SODIUM 200 MG/2 ML VIAL ONE (09:52)
[2020-07-15] MEDS: Magnesium Oxide 400 MG TAB PO SCH ×2 (12:33→22:14)
[2020-07-15] MEDS: Calcitriol 0.25 MCG CAP PO SCH (12:33)
[2020-07-15] MEDS: Ferrous Sulfate 325 MG TAB PO SCH (12:33)
[2020-07-15] MEDS: Amiodarone 200 MG TAB PO SCH (12:33)
[2020-07-15] MEDS: predniSONE 5 MG TAB PO SCH (12:33)
[2020-07-15] MEDS: Aspirin Chewable 81 MG TAB PO SCH (12:34)
[2020-07-15] MEDS: Folic Acid/Vit B Comp W-C PO SCH (12:34)
[2020-07-15] MEDS: Sacubitril 49 MG/Valsartan 51 MG TABLET PO SCH ×2 (12:34→22:14)
[2020-07-15 18:28] LABS: Anion Gap 13 mmol/L (10-20); BUN (Urea Nitrogen) 25 mg/dL (8.4-25.7); Calc. Creatinine Clearance 39 mL/min (70-130); Calcium 7.4 mg/dL (7.8-10.44); Carbon Dioxide 22 mmol/L (23-31); Chloride 106 mmol/L (98-107); Glucose 409 mg/dL (80-115); Magnesium 1.9 mg/dL (1.6-2.6); Potassium 4.4 mmol/L (3.5-5.1); Sodium 137 mmol/L (136-145)
[2020-07-15] MEDS: Atorvastatin Calcium 40 MG TAB PO SCH (22:14)
[2020-07-15] MEDS: Benzonatate 100 MG CAP PO PRN (22:14)
[2020-07-16] MEDS: Isosorbide Dinitrate 20 MG TAB PO SCH ×3 (05:29→20:57)
[2020-07-16] MEDS: hydrALAZINE 25 MG TAB PO SCH ×3 (05:29→20:58)
[2020-07-16 08:24] LABS: #Eosinphils 0.2 thou/uL (0.0-0.7); #Lymphocytes 1.4 thou/uL (1.20-3.40); #Monocytes 0.7 thou/uL (0.11-0.59); #Neutrophils 7.8 thou/uL (1.40-6.50); %Basophils 0.1 % (0.0-1.0); %Eosinophils 2.3 % (0.0-10.0); %Monocytes 6.8 % (0.0-10.0); %Neutrophils 76.8 % (42.0-75.0); Hemoglobin 9.5 g/dL (14.0-18.0); Mean Corpuscular HGB CONC 31.5 g/dL (32.0-36.0); Mean Corpuscular Hemoglobin 28.7 pg (27.0-31.0); Mean Corpuscular Volume 91.1 fL (78.0-98.0); Mean Platelet Volume 7.3 fL (7.4-10.4); Platelet Count 221 thou/uL (130-400); RBC Distribution Width 14.8 % (11.5-14.5); Red Blood Cell (RBC) Count 3.32 mill/uL (4.70-6.10); White Blood Cell (WBC) Count 10.1 thou/uL (4.8-10.8)
[2020-07-16] MEDS: predniSONE 5 MG TAB PO SCH (08:44)
[2020-07-16] MEDS: Folic Acid/Vit B Comp W-C PO SCH (08:44)
[2020-07-16] MEDS: Calcitriol 0.25 MCG CAP PO SCH (08:44)
[2020-07-16] MEDS: Magnesium Oxide 400 MG TAB PO SCH ×2 (08:45→20:57)
[2020-07-16] MEDS: Sacubitril 49 MG/Valsartan 51 MG TABLET PO SCH ×3 (08:45→20:58)
[2020-07-16] MEDS: Ferrous Sulfate 325 MG TAB PO SCH (08:45)
[2020-07-16] MEDS: Amiodarone 200 MG TAB PO SCH (08:45)
[2020-07-16] MEDS: Aspirin Chewable 81 MG TAB PO SCH (08:45)
[2020-07-16 08:52] LABS: Anion Gap 12 mmol/L (10-20); BUN (Urea Nitrogen) 31 mg/dL (8.4-25.7); Calc. Creatinine Clearance 37 mL/min (70-130); Carbon Dioxide 25 mmol/L (23-31); Chloride 107 mmol/L (98-107); Potassium 4.4 mmol/L (3.5-5.1); Sodium 140 mmol/L (136-145)
[2020-07-16 08:53] LABS: Calcium 7.2 mg/dL (7.8-10.44); Glucose 164 mg/dL (80-115); Magnesium 1.9 mg/dL (1.6-2.6)
[2020-07-16] MEDS ORDERED: Heparin 10,000 UNITS/ 10 ML VIAL ONE (13:23)
[2020-07-16] MEDS ORDERED: Lidocaine 1% w/Epinephrine 1:100K 20 ML VIAL ONE (13:23)
[2020-07-16] MEDS ORDERED: Protamine Sulfate 50 MG/5 ML VIAL ONE (13:23)
[2020-07-16] MEDS ORDERED: Bupivacaine PF 0.5% 30 ML VIAL ONE (13:23)
[2020-07-16] MEDS ORDERED: Heparin 5,000 UNITS/ML VIAL ONE (13:23)
[2020-07-16] MEDS ORDERED: Sodium Chloride 0.9% 30 ML ONE (13:23)
[2020-07-16] MEDS ORDERED: Propofol 500 MG/50 ML VIAL ONE (13:30)
[2020-07-16] MEDS ORDERED: Fentanyl 100 MCG/2 ML VIAL ONE (13:57)
[2020-07-16] MEDS ORDERED: PROPOFOL 200 MG/20 ML VIAL ONE (14:22)
[2020-07-16] MEDS ORDERED: Ropivacaine 0.5% HCl/PF (150 MG/30 ML VIAL) ONE (14:22)
[2020-07-16] MEDS: Benzonatate 100 MG CAP PO PRN (20:57)
[2020-07-16] MEDS: HumaLOG 300 UNITS/3 ML VIAL SC PRN (20:57)
[2020-07-16] MEDS: Atorvastatin Calcium 40 MG TAB PO SCH (20:58)
[2020-07-16] MEDS: traMADol HCl 50 MG TAB PO PRN (21:02)
[2020-07-17 04:23] LABS: #Eosinphils 0.2 thou/uL (0.0-0.7); #Lymphocytes 1.3 thou/uL (1.20-3.40); #Monocytes 0.9 thou/uL (0.11-0.59); #Neutrophils 7.8 thou/uL (1.40-6.50); %Basophils 0.3 % (0.0-1.0); %Eosinophils 2.1 % (0.0-10.0); %Lymphocytes 12.3 % (21.0-51.0); %Monocytes 9.2 % (0.0-10.0); %Neutrophils 76.2 % (42.0-75.0); Hemoglobin 8.5 g/dL (14.0-18.0); Mean Corpuscular Hemoglobin 28.3 pg (27.0-31.0); Mean Corpuscular Volume 91.2 fL (78.0-98.0); Platelet Count 232 thou/uL (130-400); RBC Distribution Width 14.8 % (11.5-14.5); Red Blood Cell (RBC) Count 2.99 mill/uL (4.70-6.10); White Blood Cell (WBC) Count 10.2 thou/uL (4.8-10.8)
[2020-07-17 04:41] LABS: Anion Gap 9 mmol/L (10-20); BUN (Urea Nitrogen) 35 mg/dL (8.4-25.7); Calc. Creatinine Clearance 32 mL/min (70-130); Calcium 7.4 mg/dL (7.8-10.44); Carbon Dioxide 29 mmol/L (23-31); Chloride 108 mmol/L (98-107); Glucose 164 mg/dL (80-115); Magnesium 1.9 mg/dL (1.6-2.6); Potassium 4.2 mmol/L (3.5-5.1); Sodium 142 mmol/L (136-145)
[2020-07-17] MEDS: Isosorbide Dinitrate 20 MG TAB PO SCH ×3 (05:50→22:01)
[2020-07-17] MEDS: hydrALAZINE 25 MG TAB PO SCH ×3 (05:50→22:02)
[2020-07-17] MEDS: traMADol HCl 50 MG TAB PO PRN (07:42)
[2020-07-17] MEDS: Ferrous Sulfate 325 MG TAB PO SCH (12:02)
[2020-07-17] MEDS: Folic Acid/Vit B Comp W-C PO SCH (12:03)
[2020-07-17] MEDS: Magnesium Oxide 400 MG TAB PO SCH ×2 (12:04→22:00)
[2020-07-17] MEDS: Amiodarone 200 MG TAB PO SCH (12:04)
[2020-07-17] MEDS: Aspirin Chewable 81 MG TAB PO SCH (12:04)
[2020-07-17] MEDS: Calcitriol 0.25 MCG CAP PO SCH (12:05)
[2020-07-17] MEDS: Sacubitril 49 MG/Valsartan 51 MG TABLET PO SCH ×2 (12:05→22:00)
[2020-07-17] MEDS ORDERED: Heparin 10,000 UNITS/ 10 ML VIAL ONE (14:19)
[2020-07-17] MEDS: HumaLOG 300 UNITS/3 ML VIAL SC PRN (17:34)
[2020-07-17] MEDS: Benzonatate 100 MG CAP PO PRN (22:01)
[2020-07-17] MEDS: Atorvastatin Calcium 40 MG TAB PO SCH (22:01)
[2020-07-17] MEDS: Acetaminophen 325 MG TAB PO PRN (22:02)
[2020-07-18 04:31] LABS: #Eosinphils 0.1 thou/uL (0.0-0.7); #Lymphocytes 1.2 thou/uL (1.20-3.40); #Monocytes 0.8 thou/uL (0.11-0.59); %Eosinophils 1.6 % (0.0-10.0); %Lymphocytes 14.6 % (21.0-51.0); %Monocytes 9.7 % (0.0-10.0); Hemoglobin 8.8 g/dL (14.0-18.0); Mean Corpuscular HGB CONC 30.7 g/dL (32.0-36.0); Mean Corpuscular Hemoglobin 28.3 pg (27.0-31.0); Mean Platelet Volume 7.1 fL (7.4-10.4); Platelet Count 235 thou/uL (130-400); RBC Distribution Width 14.6 % (11.5-14.5); White Blood Cell (WBC) Count 8.1 thou/uL (4.8-10.8)
[2020-07-18 04:50] LABS: Anion Gap 10 mmol/L (10-20); BUN (Urea Nitrogen) 22 mg/dL (8.4-25.7); Calc. Creatinine Clearance 38 mL/min (70-130); Calcium 7.5 mg/dL (7.8-10.44); Carbon Dioxide 29 mmol/L (23-31); Chloride 103 mmol/L (98-107); Glucose 196 mg/dL (80-115); Magnesium 1.6 mg/dL (1.6-2.6); Potassium 3.7 mmol/L (3.5-5.1); Sodium 138 mmol/L (136-145)
[2020-07-18] MEDS: hydrALAZINE 25 MG TAB PO SCH ×3 (05:17→22:08)
[2020-07-18] MEDS: Isosorbide Dinitrate 20 MG TAB PO SCH ×3 (05:17→22:11)
[2020-07-18] MEDS: HumaLOG 300 UNITS/3 ML VIAL SC PRN (07:07)
[2020-07-18] MEDS: Amiodarone 200 MG TAB PO SCH (09:27)
[2020-07-18] MEDS: Aspirin Chewable 81 MG TAB PO SCH (09:27)
[2020-07-18] MEDS: Calcitriol 0.25 MCG CAP PO SCH (09:28)
[2020-07-18] MEDS: Sacubitril 49 MG/Valsartan 51 MG TABLET PO SCH ×2 (09:28→22:08)
[2020-07-18] MEDS: Magnesium Oxide 400 MG TAB PO SCH ×2 (09:28→22:08)
[2020-07-18] MEDS: Ferrous Sulfate 325 MG TAB PO SCH (09:28)
[2020-07-18] MEDS: Folic Acid/Vit B Comp W-C PO SCH (09:28)
[2020-07-18] MEDS: Acetaminophen 325 MG TAB PO PRN ×2 (09:31→22:09)
[2020-07-18 12:50] VITALS: BMI 31.2
[2020-07-18] MEDS: Atorvastatin Calcium 40 MG TAB PO SCH (22:08)
[2020-07-19] MEDS: Benzonatate 100 MG CAP PO PRN (03:46)
[2020-07-19 04:47] LABS: #Eosinphils 0.1 thou/uL (0.0-0.7); #Lymphocytes 1.3 thou/uL (1.20-3.40); #Monocytes 0.8 thou/uL (0.11-0.59); #Neutrophils 4.7 thou/uL (1.40-6.50); %Lymphocytes 18.3 % (21.0-51.0); %Monocytes 11.8 % (0.0-10.0); %Neutrophils 67.9 % (42.0-75.0); Mean Corpuscular Hemoglobin 28.5 pg (27.0-31.0); Mean Corpuscular Volume 92.1 fL (78.0-98.0); Mean Platelet Volume 6.9 fL (7.4-10.4); Platelet Count 263 thou/uL (130-400); RBC Distribution Width 14.7 % (11.5-14.5); Red Blood Cell (RBC) Count 3.14 mill/uL (4.70-6.10); White Blood Cell (WBC) Count 6.9 thou/uL (4.8-10.8)
[2020-07-19 05:08] LABS: Anion Gap 15 mmol/L (10-20); BUN (Urea Nitrogen) 26 mg/dL (8.4-25.7); Calc. Creatinine Clearance 31 mL/min (70-130); Calcium 7.9 mg/dL (7.8-10.44); Carbon Dioxide 24 mmol/L (23-31); Chloride 102 mmol/L (98-107); Glucose 159 mg/dL (80-115); Magnesium 1.8 mg/dL (1.6-2.6); Potassium 3.5 mmol/L (3.5-5.1); Sodium 137 mmol/L (136-145)
[2020-07-19] MEDS: Isosorbide Dinitrate 20 MG TAB PO SCH ×2 (06:15→13:14)
[2020-07-19] MEDS: hydrALAZINE 25 MG TAB PO SCH ×2 (06:16→13:16)
[2020-07-19] MEDS: Magnesium Oxide 400 MG TAB PO SCH (13:11)
[2020-07-19] MEDS: Folic Acid/Vit B Comp W-C PO SCH (13:11)
[2020-07-19] MEDS: Sacubitril 49 MG/Valsartan 51 MG TABLET PO SCH (13:11)
[2020-07-19] MEDS: Aspirin Chewable 81 MG TAB PO SCH (13:11)
[2020-07-19] MEDS: Calcitriol 0.25 MCG CAP PO SCH (13:11)
[2020-07-19] MEDS: Amiodarone 200 MG TAB PO SCH (13:11)
[2020-07-19] MEDS: Ferrous Sulfate 325 MG TAB PO SCH (13:14)
[2020-07-19] MEDS ORDERED: Heparin 10,000 UNITS/ 10 ML VIAL ONE (13:34)
[2020-07-19 17:07] VITALS: BP 136/65; TEMP 98.2
== END 2020-07-19 20:30 | disposition home or self-care (01) | DRG 264 ==
LOC: ERS 14:12 → IMCU/EMU 15:46 → 2NO 07-11 22:09
PROVIDERS: ADMIT Internal Medicine; ATTEND Internal Medicine
PROC: 5A1D70Z Performance of Urinary Filtration, Intermittent, Less than 6 Hours Per Day (ICD-10-PCS; 2020-07-08)
PROC: 5A09357 Assistance with Respiratory Ventilation, Less than 24 Consecutive Hours, Continuous Positive Airway Pressure (ICD-10-PCS; 2020-07-08)
PROC: 02HV33Z Insertion of Infusion Device into Superior Vena Cava, Percutaneous Approach (ICD-10-PCS; 2020-07-08)
PROC: 3E02340 Introduction of Influenza Vaccine into Muscle, Percutaneous Approach (ICD-10-PCS; principal; 2020-07-09)
PROC: 4B02XTZ Measurement of Cardiac Defibrillator, External Approach (ICD-10-PCS; 2020-07-15)
PROC: 031B09F Bypass Right Radial Artery to Lower Arm Vein with Autologous Venous Tissue, Open Approach (ICD-10-PCS; 2020-07-16)
PROC: 0JH63XZ Insertion of Tunneled Vascular Access Device into Chest Subcutaneous Tissue and Fascia, Percutaneous Approach (ICD-10-PCS; 2020-07-16)
PROC: 05HN33Z Insertion of Infusion Device into Left Internal Jugular Vein, Percutaneous Approach (ICD-10-PCS; 2020-07-16)
PROC: B5141ZA Fluoroscopy of Left Jugular Veins using Low Osmolar Contrast, Guidance (ICD-10-PCS; 2020-07-16)
PROC: B544ZZA Ultrasonography of Left Jugular Veins, Guidance (ICD-10-PCS; 2020-07-16)
DX: I13.2 Hypertensive heart and chronic kidney disease with heart failure and with stage 5 chronic kidney disease, or end stage renal disease (principal); N18.6 End stage renal disease; I50.23 Acute on chronic systolic (congestive) heart failure; G93.41 Metabolic encephalopathy; J96.01 Acute respiratory failure with hypoxia; J96.02 Acute respiratory failure with hypercapnia; N17.9 Acute kidney failure, unspecified; E87.2 Acidosis; J44.0 Chronic obstructive pulmonary disease with (acute) lower respiratory infection; I47.2 Ventricular tachycardia; Z20.822 Contact with and (suspected) exposure to COVID-19; Z23 Encounter for immunization; K21.9 Gastro-esophageal reflux disease without esophagitis; I25.10 Atherosclerotic heart disease of native coronary artery without angina pectoris; D63.1 Anemia in chronic kidney disease; E87.5 Hyperkalemia; E11.22 Type 2 diabetes mellitus with diabetic chronic kidney disease; E78.5 Hyperlipidemia, unspecified; E78.00 Pure hypercholesterolemia, unspecified; E66.01 Morbid (severe) obesity due to excess calories; I25.5 Ischemic cardiomyopathy; I48.0 Paroxysmal atrial fibrillation; E87.6 Hypokalemia; Z96.649 Presence of unspecified artificial hip joint; E11.649 Type 2 diabetes mellitus with hypoglycemia without coma; I25.2 Old myocardial infarction; Z95.5 Presence of coronary angioplasty implant and graft; Z95.810 Presence of automatic (implantable) cardiac defibrillator; Z87.891 Personal history of nicotine dependence; Z79.01 Long term (current) use of anticoagulants; Z79.84 Long term (current) use of oral hypoglycemic drugs; Z79.51 Long term (current) use of inhaled steroids; Z79.899 Other long term (current) drug therapy; Z68.30 Body mass index [BMI] 30.0-30.9, adult; Z59.0 Homelessness
CPT/HCPCS: 0240U; 36415; 36416; 36600; 71045; 80048; 82805; 83735; 83880; 85025; 86580; 86704; 86706; 86803; 87340; 90471; 90662; 90935; 93005; 93970; 94640; 94660; C1751; C1752; G0008; G0257; J1642; J1644; J1815; J2704; J2720; J2795; J2920; J3010; J3475; J7512; J7620; S0020

== ENCOUNTER 2020-08-20 07:10 | Day surgery (SDC) | payer OTHER ==
[2020-08-16 08:04] VITALS: BMI 30.3
[2020-08-20 09:48] VITALS: BP 160/78; TEMP 98.4
== END 2020-08-20 09:15 | disposition home or self-care (01) ==
LOC: SPEC 07:10
PROVIDERS: ATTEND Specialist
PROC: B51W1ZZ Fluoroscopy of Dialysis Shunt/Fistula using Low Osmolar Contrast (ICD-10-PCS; principal; 2020-08-20)
DX: T82.41XA Breakdown (mechanical) of vascular dialysis catheter, initial encounter (principal); I13.2 Hypertensive heart and chronic kidney disease with heart failure and with stage 5 chronic kidney disease, or end stage renal disease; E11.22 Type 2 diabetes mellitus with diabetic chronic kidney disease; N18.6 End stage renal disease; I50.22 Chronic systolic (congestive) heart failure; G47.33 Obstructive sleep apnea (adult) (pediatric); I25.2 Old myocardial infarction; I48.91 Unspecified atrial fibrillation; I25.10 Atherosclerotic heart disease of native coronary artery without angina pectoris; F17.200 Nicotine dependence, unspecified, uncomplicated; K21.9 Gastro-esophageal reflux disease without esophagitis; F17.210 Nicotine dependence, cigarettes, uncomplicated; Z79.01 Long term (current) use of anticoagulants; Z79.82 Long term (current) use of aspirin; Z79.84 Long term (current) use of oral hypoglycemic drugs; Z95.810 Presence of automatic (implantable) cardiac defibrillator; Z99.2 Dependence on renal dialysis
CPT/HCPCS: 36901; 76942

== ENCOUNTER 2020-08-29 12:00 | Outpatient (CLI) | payer OTHER ==
[2020-08-29 13:43] LABS: Anion Gap 14 mmol/L (10-20); BUN (Urea Nitrogen) 14 mg/dL (8.4-25.7); Calc. Creatinine Clearance 0 mL/min (70-130); Calcium 8.3 mg/dL (7.8-10.44); Carbon Dioxide 27 mmol/L (23-31); Chloride 103 mmol/L (98-107); Glucose 125 mg/dL (80-115); Sodium 140 mmol/L (136-145)
[2020-08-29 14:15] LABS: #Eosinphils 0.2 10x3/uL (0.0-0.5); #Neutrophils 4.4 10x3/uL (1.5-8.4); %Basophils 0.5 % (0.0-2.0); %Eosinophils 2.1 % (0.0-6.0); %Monocytes 12.7 % (0.0-10.0); %Neutrophils 57.4 % (40.0-75.0); Hemoglobin 9.6 g/dL (13.5-17.5); Mean Corpuscular HGB CONC 29.1 g/dL (32.0-36.0); Mean Corpuscular Hemoglobin 26.5 pg (27.0-33.0); Mean Corpuscular Volume 91.2 fl (81.2-95.1); Platelet Count 329 10x3/uL (150-450); RBC Distribution Width 16.3 % (11.5-14.5); Red Blood Cell (RBC) Count 3.62 10x6/uL (4.32-5.72); White Blood Cell (WBC) Count 7.7 10x3/uL (3.5-10.5)
[2020-08-30 01:46] LABS: SARS-CoV-2 PCR by NAA Not Detected (NotDetected)
== END 2020-08-29 12:01 | disposition home or self-care (01) ==
LOC: LABBT 12:00
PROVIDERS: ATTEND Specialist
DX: Z01.812 Encounter for preprocedural laboratory examination (principal); Z20.822 Contact with and (suspected) exposure to COVID-19; T82.590D Other mechanical complication of surgically created arteriovenous fistula, subsequent encounter; N18.6 End stage renal disease; D68.9 Coagulation defect, unspecified; Z95.0 Presence of cardiac pacemaker
CPT/HCPCS: 80048; 85025; 87635; U0003; U0005

== ENCOUNTER → 2021-03-26 | Day surgery (SDC) | payer MEDICARE, OTHER ==
[2021-03-25 10:57] VITALS: BMI 28.7
[~2021-03-26] MED LIST changes: -Heparin 10,000 UNITS/ 10 ML VIAL ONE; +Lidocaine 1% PF 5 ML VIAL ONE; +PROPOFOL 200 MG/20 ML VIAL ONE
== END ==
LOC: CCL 05:46
PROVIDERS: ATTEND Internal Medicine Cardiovascular Disease
PROC: B246ZZ4 Ultrasonography of Right and Left Heart, Transesophageal (ICD-10-PCS; principal; 2021-03-26)
PROC: 5A2204Z Restoration of Cardiac Rhythm, Single (ICD-10-PCS; 2021-03-26)
DX: I48.19 Other persistent atrial fibrillation (principal); I08.1 Rheumatic disorders of both mitral and tricuspid valves; I13.2 Hypertensive heart and chronic kidney disease with heart failure and with stage 5 chronic kidney disease, or end stage renal disease; E11.22 Type 2 diabetes mellitus with diabetic chronic kidney disease; N18.6 End stage renal disease; I50.22 Chronic systolic (congestive) heart failure; F17.210 Nicotine dependence, cigarettes, uncomplicated; G47.33 Obstructive sleep apnea (adult) (pediatric); I25.2 Old myocardial infarction; I25.10 Atherosclerotic heart disease of native coronary artery without angina pectoris; I25.5 Ischemic cardiomyopathy; E11.51 Type 2 diabetes mellitus with diabetic peripheral angiopathy without gangrene; J45.909 Unspecified asthma, uncomplicated; Z79.01 Long term (current) use of anticoagulants; Z79.82 Long term (current) use of aspirin; Z79.899 Other long term (current) drug therapy; Z95.810 Presence of automatic (implantable) cardiac defibrillator; Z95.5 Presence of coronary angioplasty implant and graft; Z99.2 Dependence on renal dialysis
CPT/HCPCS: 92960; 93005; 93010; 93312; J2704